=== PATIENT | female | born 1955 | race Caucasian/White ===

== ENCOUNTER 2017-07-19 09:18 | Outpatient (CLI) | payer MEDICARE, OTHER ==
[~2017-07-19 09:18] MED LIST: ALBU8.5H8 IH; AMIO200T42 PO; APIX5TAB3 PO; CARV3.12 PO; FERR325T28 PO; FLUO20CA39 PO; HYDR-569 PO; LEVO100T46 PO; PANT40TA4 PO; PRAV40TA PO; SPIR25TA PO; TRAZ-146 PO
[2017-07-19] MEDS ORDERED: METR500T PO (14:09)
[2017-07-19] MEDS ORDERED: CIPR-259 PO (14:09)
[2017-07-19] MEDS ORDERED: DOCU-28 PO (14:12)
== END 2017-07-19 23:59 | disposition home or self-care (01) ==
LOC: RAD 09:18
PROVIDERS: ATTEND Family Medicine
DX: Z48.815 Encounter for surgical aftercare following surgery on the digestive system (principal); I11.0 Hypertensive heart disease with heart failure; I50.9 Heart failure, unspecified; J44.9 Chronic obstructive pulmonary disease, unspecified; Z87.891 Personal history of nicotine dependence; Z85.3 Personal history of malignant neoplasm of breast; Z95.0 Presence of cardiac pacemaker; Z98.890 Other specified postprocedural states
CPT/HCPCS: 74022

== ENCOUNTER 2017-07-19 12:02 | Emergency (ER) | payer MEDICARE, OTHER ==
[~2017-07-19] VITALS: Ht 160 cm; Wt 65.7 kg
[2017-07-19 12:37] LABS: CLARITY,URINE SLIGHTLY CLOUDY (Clear); COLOR,URINE YELLOW (Yellow); GLUCOSE, URINE NEGATIVE (Neg); KETONES,URINE TRACE mg/dl (Neg); LEUKOCYTE ESTERASE ,URINE NEGATIVE (Neg); NITRITES, URINE NEGATIVE (Neg); OCCULT BLOOD,URINE NEGATIVE (Neg); PROTEIN,URINE NEGATIVE (Neg)
[2017-07-19 12:38] LABS: UA COLLECTION TYPE CLN CATCH MIDSTREAM
[2017-07-19 12:38] LABS: BASOPHILS % (AUTO) 0.3 % (0-1); EOSINOPHILS # (AUTO) 0.1 X10'3 (0-0.9); EOSINOPHILS % (AUTO) 0.8 % (0-6); HEMATOCRIT 41.2 % (35.0-45.0); HEMOGLOBIN 13.6 g/dl (12.0-16.0); LYMPHOCYTES # (AUTO) 2.6 X10'3 (1.1-4.8); LYMPHOCYTES % (AUTO) 22.3 % (21-51); MEAN CORPUSCULAR HEMOGLOBIN 29.1 PG (27.0-31.0); MEAN CORPUSCULAR HGB CONC 32.9 % (33.0-36.5); MEAN CORPUSCULAR VOLUME 88.6 FL (78-98); MEAN PLATELET VOLUME 7.9 FL (7.4-10.4); MONOCYTES # (AUTO) 0.7 X10'3 (0-0.9); MONOCYTES % (AUTO) 6.1 % (2-12); NEUTROPHILS # (AUTO) 8.3 X10'3 (1.8-7.7); NEUTROPHILS % (AUTO) 70.5 % (42-75); PLATELET COUNT 223 X10'3 (140-440); RED BLOOD COUNT 4.65 X10'6 (4.20-5.60); RED CELL DISTRIBUTION WIDTH 16.7 % (11.5-14.5); WHITE BLOOD COUNT 11.8 X10'3 (4.5-11.0)
[2017-07-19 12:43] LABS: BACTERIA,URINE 1+ /HPF (Neg); HYALINE CASTS 0-3 /LPF (NEGATIVE); MUCUS STRANDS MODERATE /LPF (Neg); SQUAMOUS EPITHELIAL CELL,UR FEW /LPF (FEW); WBC,URINE 0-4 /HPF (0-4)
[2017-07-19] MEDS ORDERED: morphine 4 MG/ML inj SYRINge IV PRN (12:55)
[2017-07-19] MEDS ORDERED: ondansetron/PF 4mg/2ml inj IV ONE (12:55)
[2017-07-19] MEDS ORDERED: normal saline 1000ML IV soln IVB ONE (12:55)
[2017-07-19] MEDS ORDERED: diphenhydrAMINE 50 mg/ml inj IV ONE (12:55)
[2017-07-19 12:58] LABS: ALANINE AMINOTRANSFERASE 17 U/L (12-78); ALBUMIN 3.4 G/DL (3.4-5.0); ALKALINE PHOSPHATASE 75 IU/L (46-116); ANION GAP 8 (8-16); ASPARTATE AMINO TRANSFERASE 17 U/L (10-37); BILIRUBIN,TOTAL 0.6 MG/DL (0.1-1.0); BLOOD UREA NITROGEN 20 MG/DL (7-18); BUN/CREATININE RATIO 23.3 (6.6-38.0); CALCIUM 8.7 MG/DL (8.5-10.1); CHLORIDE 103 MMOL/L (99-107); CREATININE 0.86 MG/DL (0.40-0.90); GLUCOSE 85 MG/DL (70-104); LIPASE 69 U/L (73-393); POTASSIUM 3.9 MMOL/L (3.5-5.1); SODIUM 137 MMOL/L (135-145); TOTAL CARBON DIOXIDE 26.5 MMOL/L (24-32); TOTAL PROTEIN 6.9 G/DL (6.4-8.2); eGFR 66 ML/MIN
[2017-07-19] MEDS ORDERED: CIPR-259 PO (14:09)
[2017-07-19] MEDS ORDERED: METR500T PO (14:09)
[2017-07-19] MEDS ORDERED: DOCU-28 PO (14:12)
[2017-07-19 15:23] VITALS: BP 115/51
== END 2017-07-19 15:30 | disposition home or self-care (01) ==
LOC: ER 12:02
DX: K52.9 Noninfective gastroenteritis and colitis, unspecified (principal); R10.84 Generalized abdominal pain; J45.909 Unspecified asthma, uncomplicated; I48.91 Unspecified atrial fibrillation; Z86.14 Personal history of Methicillin resistant Staphylococcus aureus infection; Z90.49 Acquired absence of other specified parts of digestive tract; Z98.890 Other specified postprocedural states; Z88.5 Allergy status to narcotic agent; Z88.0 Allergy status to penicillin; Z79.899 Other long term (current) drug therapy
CPT/HCPCS: 36415; 74176; 80053; 81001; 83690; 85025; 96361; 96374; 96375; 99285; J1200; J2270; J2405; J7030

== ENCOUNTER 2017-07-24 14:04 | Emergency (ER) | payer MEDICARE, OTHER ==
[~2017-07-24] VITALS: Ht 558.9 cm; Wt 59.0 kg
[~2017-07-24 14:04] MED LIST changes: +CIPR-259 PO; +DOCU-28 PO; +METR500T PO
[2017-07-24] MEDS ORDERED: verapamil 2.5 mg/ml inj IV ONE (14:20)
[2017-07-24] MEDS ORDERED: ondansetron/PF 4mg/2ml inj IV ONE ×2 (14:30→15:35)
[2017-07-24 14:34] LABS: BASOPHILS % (AUTO) 0.2 % (0-1); EOSINOPHILS # (AUTO) 0.2 X10'3 (0-0.9); EOSINOPHILS % (AUTO) 2.1 % (0-6); HEMATOCRIT 41.4 % (35.0-45.0); HEMOGLOBIN 13.8 g/dl (12.0-16.0); LYMPHOCYTES # (AUTO) 2.7 X10'3 (1.1-4.8); LYMPHOCYTES % (AUTO) 23.5 % (21-51); MEAN CORPUSCULAR HEMOGLOBIN 29.5 PG (27.0-31.0); MEAN CORPUSCULAR HGB CONC 33.2 % (33.0-36.5); MEAN PLATELET VOLUME 7.5 FL (7.4-10.4); MONOCYTES # (AUTO) 0.8 X10'3 (0-0.9); MONOCYTES % (AUTO) 7.3 % (2-12); NEUTROPHILS # (AUTO) 7.7 X10'3 (1.8-7.7); NEUTROPHILS % (AUTO) 66.9 % (42-75); PLATELET COUNT 240 X10'3 (140-440); RED BLOOD COUNT 4.66 X10'6 (4.20-5.60); RED CELL DISTRIBUTION WIDTH 16.2 % (11.5-14.5); WHITE BLOOD COUNT 11.4 X10'3 (4.5-11.0)
[2017-07-24 14:45] LABS: INR 1.2 INR; PARTIAL THROMBOPLASTIN TIME 32 SECONDS (22-32); PROTHROMBIN TIME 12.6 SECONDS (9.0-12.0)
[2017-07-24 14:49] LABS: ALANINE AMINOTRANSFERASE 19 U/L (12-78); ALBUMIN 3.7 G/DL (3.4-5.0); ALBUMIN/GLOBULIN RATIO 1.2 (1.1-1.5); ALKALINE PHOSPHATASE 69 IU/L (46-116); ANION GAP 11 (8-16); ASPARTATE AMINO TRANSFERASE 17 U/L (10-37); BILIRUBIN,TOTAL 0.5 MG/DL (0.1-1.0); BLOOD UREA NITROGEN 15 MG/DL (7-18); CALCIUM 9.4 MG/DL (8.5-10.1); CHLORIDE 102 MMOL/L (99-107); CREATININE 0.94 MG/DL (0.40-0.90); GLUCOSE 108 MG/DL (70-104); POTASSIUM 4.4 MMOL/L (3.5-5.1); SODIUM 138 MMOL/L (135-145); TOTAL CARBON DIOXIDE 24.7 MMOL/L (24-32); TOTAL PROTEIN 6.9 G/DL (6.4-8.2); eGFR 60 ML/MIN
[2017-07-24] MEDS ORDERED: morphine 4 MG/ML inj SYRINge IV ONE (15:30)
[2017-07-24 15:51] LABS: LIPASE 100 U/L (73-393)
[2017-07-24 16:00] LABS: CLARITY,URINE CLEAR (Clear); COLOR,URINE AMBER (Yellow); GLUCOSE, URINE NEGATIVE (Neg); KETONES,URINE TRACE mg/dl (Neg); LEUKOCYTE ESTERASE ,URINE NEGATIVE (Neg); NITRITES, URINE NEGATIVE (Neg); OCCULT BLOOD,URINE NEGATIVE (Neg); PROTEIN,URINE NEGATIVE (Neg); UROBILINOGEN,URINE 0.2 E.U/dL (0.2-1.0)
[2017-07-24 16:01] LABS: UA COLLECTION TYPE CLN CATCH MIDSTREAM
[2017-07-24] MEDS ORDERED: ONDA4TAB9 SL (16:47)
[2017-07-24 17:04] VITALS: BP 105/68
== END 2017-07-24 17:22 | disposition home or self-care (01) ==
LOC: ER 14:05
DX: R00.0 Tachycardia, unspecified (principal); E86.0 Dehydration; R10.84 Generalized abdominal pain; I48.91 Unspecified atrial fibrillation; J45.909 Unspecified asthma, uncomplicated; Z90.49 Acquired absence of other specified parts of digestive tract; Z95.0 Presence of cardiac pacemaker; Z88.0 Allergy status to penicillin; Z88.5 Allergy status to narcotic agent; Z85.3 Personal history of malignant neoplasm of breast
CPT/HCPCS: 36415; 71045; 80053; 81003; 83690; 83880; 84484; 85025; 85610; 85730; 93005; 96374; 96375; 96376; 99285; J2270; J2405

== ENCOUNTER 2017-08-02 01:35 | Emergency (ER) | payer MEDICARE, OTHER ==
[~2017-08-02] VITALS: Ht 160 cm; Wt 68.2 kg
[~2017-08-02 01:35] MED LIST changes: -CIPR-259 PO; -METR500T PO
[2017-08-02] MEDS ORDERED: acetaminophen 325mg tablet PO ONE (02:00)
[2017-08-02] MEDS ORDERED: LORazepam 1 MG tablet PO ONE (02:05)
[2017-08-02 03:35] LABS: CLARITY,URINE CLEAR (Clear); COLOR,URINE YELLOW (Yellow); GLUCOSE, URINE NEGATIVE (Neg); KETONES,URINE NEGATIVE (Neg); LEUKOCYTE ESTERASE ,URINE NEGATIVE (Neg); NITRITES, URINE NEGATIVE (Neg); OCCULT BLOOD,URINE NEGATIVE (Neg); PH,URINE 8.5 (4.8-8.0); PROTEIN,URINE NEGATIVE (Neg); UROBILINOGEN,URINE 0.2 E.U/dL (0.2-1.0)
[2017-08-02 03:42] LABS: UA COLLECTION TYPE CLN CATCH MIDSTREAM
[2017-08-02 03:43] LABS: ALANINE AMINOTRANSFERASE 22 U/L (12-78); ALBUMIN 3.5 G/DL (3.4-5.0); ALBUMIN/GLOBULIN RATIO 1.2 (1.1-1.5); ALKALINE PHOSPHATASE 59 IU/L (46-116); ANION GAP 13 (8-16); ASPARTATE AMINO TRANSFERASE 25 U/L (10-37); BILIRUBIN,TOTAL 0.8 MG/DL (0.1-1.0); BLOOD UREA NITROGEN 12 MG/DL (7-18); BUN/CREATININE RATIO 14.3 (6.6-38.0); CHLORIDE 106 MMOL/L (99-107); CREATININE 0.84 MG/DL (0.40-0.90); GLUCOSE 93 MG/DL (70-104); SODIUM 143 MMOL/L (135-145); TOTAL CARBON DIOXIDE 24.1 MMOL/L (24-32); TOTAL PROTEIN 6.5 G/DL (6.4-8.2); eGFR 68 ML/MIN
[2017-08-02 03:44] LABS: POTASSIUM 3.5 MMOL/L (3.5-5.1)
[2017-08-02 03:48] LABS: HEMATOCRIT 35.1 % (35.0-45.0); HEMOGLOBIN 11.8 g/dl (12.0-16.0); MEAN CORPUSCULAR HEMOGLOBIN 29.9 PG (27.0-31.0); MEAN CORPUSCULAR HGB CONC 33.5 % (33.0-36.5); MEAN CORPUSCULAR VOLUME 89.2 FL (78-98); MEAN PLATELET VOLUME 8.1 FL (7.4-10.4); PLATELET COUNT 201 X10'3 (140-440); RED BLOOD COUNT 3.94 X10'6 (4.20-5.60); RED CELL DISTRIBUTION WIDTH 15.6 % (11.5-14.5); WHITE BLOOD COUNT 11.9 X10'3 (4.5-11.0)
[2017-08-02 04:16] LABS: URINE AMPHETAMINE SCREEN NEGATIVE (Neg); URINE BARBITUATE SCREEN NEGATIVE (Neg); URINE BENZODIAZEPINES SCREEN POSITIVE (Neg); URINE CANNABINOID SCREEN NEGATIVE (Neg); URINE COCAINE SCREEN NEGATIVE (Neg); URINE METHADONE SCREEN NEGATIVE (Neg); URINE OPIATE SCREEN NEGATIVE (Neg); URINE PHENCYCLIDINE SCREEN NEGATIVE (Neg)
[2017-08-02 04:48] LABS: ANISOCYTOSIS 1+; PLATELET ESTIMATE NORMAL; POIKILOCYTOSIS FEW; TOTAL CELLS COUNTED 100
[2017-08-02] MEDS ORDERED: LORA1TAB PO (05:06)
[2017-08-02 05:19] VITALS: BP 111/62
== END 2017-08-02 05:21 | disposition home or self-care (01) ==
LOC: ER 01:36
DX: F41.9 Anxiety disorder, unspecified (principal); R07.89 Other chest pain; R07.81 Pleurodynia; I48.91 Unspecified atrial fibrillation; J45.909 Unspecified asthma, uncomplicated; Z86.14 Personal history of Methicillin resistant Staphylococcus aureus infection; Z90.49 Acquired absence of other specified parts of digestive tract; Z95.0 Presence of cardiac pacemaker; Z98.890 Other specified postprocedural states; Z87.891 Personal history of nicotine dependence; Z88.0 Allergy status to penicillin; Z88.5 Allergy status to narcotic agent; Z79.899 Other long term (current) drug therapy
CPT/HCPCS: 36415; 71045; 80053; 80305; 81003; 83880; 84484; 85025; 93005; 99285

== ENCOUNTER 2017-08-06 11:51 | Emergency (ER) | payer MEDICARE, OTHER ==
[~2017-08-06] VITALS: Ht 160 cm; Wt 67.8 kg
[~2017-08-06 11:51] MED LIST changes: +LORA1TAB PO
[2017-08-06 12:33] LABS: BASOPHILS % (AUTO) 0.4 % (0-1); EOSINOPHILS # (AUTO) 0.1 X10'3 (0-0.9); EOSINOPHILS % (AUTO) 1.6 % (0-6); HEMATOCRIT 32.6 % (35.0-45.0); HEMOGLOBIN 10.8 g/dl (12.0-16.0); LYMPHOCYTES # (AUTO) 1.8 X10'3 (1.1-4.8); LYMPHOCYTES % (AUTO) 21.4 % (21-51); MEAN CORPUSCULAR HEMOGLOBIN 29.5 PG (27.0-31.0); MEAN CORPUSCULAR VOLUME 89.3 FL (78-98); MEAN PLATELET VOLUME 7.7 FL (7.4-10.4); MONOCYTES # (AUTO) 0.6 X10'3 (0-0.9); MONOCYTES % (AUTO) 6.9 % (2-12); NEUTROPHILS # (AUTO) 5.8 X10'3 (1.8-7.7); NEUTROPHILS % (AUTO) 69.7 % (42-75); PLATELET COUNT 219 X10'3 (140-440); RED BLOOD COUNT 3.65 X10'6 (4.20-5.60); RED CELL DISTRIBUTION WIDTH 16.5 % (11.5-14.5); WHITE BLOOD COUNT 8.3 X10'3 (4.5-11.0)
[2017-08-06 12:43] LABS: PARTIAL THROMBOPLASTIN TIME 25 SECONDS (22-32); PROTHROMBIN TIME 10.3 SECONDS (9.0-12.0)
[2017-08-06 12:45] VITALS: BP 116/53
[2017-08-06 12:50] LABS: ALANINE AMINOTRANSFERASE 15 U/L (12-78); ALBUMIN 3.3 G/DL (3.4-5.0); ALBUMIN/GLOBULIN RATIO 1.1 (1.1-1.5); ALKALINE PHOSPHATASE 59 IU/L (46-116); ANION GAP 11 (8-16); ASPARTATE AMINO TRANSFERASE 12 U/L (10-37); BILIRUBIN,TOTAL 0.6 MG/DL (0.1-1.0); BLOOD UREA NITROGEN 11 MG/DL (7-18); BUN/CREATININE RATIO 14.1 (6.6-38.0); CALCIUM 9.3 MG/DL (8.5-10.1); CHLORIDE 108 MMOL/L (99-107); CREATININE 0.78 MG/DL (0.40-0.90); GLUCOSE 88 MG/DL (70-104); SODIUM 144 MMOL/L (135-145); TOTAL CARBON DIOXIDE 25.3 MMOL/L (24-32); TOTAL PROTEIN 6.4 G/DL (6.4-8.2); eGFR 74 ML/MIN
[2017-08-06] MEDS ORDERED: busPIRone 5mg tablet PO ONE (12:55)
[2017-08-06] MEDS ORDERED: BUSP10TA11 PO (13:00)
== END 2017-08-06 13:50 | disposition home or self-care (01) ==
LOC: ER 11:51
DX: F43.22 Adjustment disorder with anxiety (principal); D63.8 Anemia in other chronic diseases classified elsewhere; J45.909 Unspecified asthma, uncomplicated; I48.91 Unspecified atrial fibrillation; I25.9 Chronic ischemic heart disease, unspecified; G30.9 Alzheimer's disease, unspecified; Z86.73 Personal history of transient ischemic attack (TIA), and cerebral infarction without residual deficits; Z90.49 Acquired absence of other specified parts of digestive tract; Z95.0 Presence of cardiac pacemaker; Z79.899 Other long term (current) drug therapy; Z88.0 Allergy status to penicillin; Z88.5 Allergy status to narcotic agent; Z91.011 Allergy to milk products
CPT/HCPCS: 36415; 71045; 80053; 84484; 85025; 85610; 85730; 93005; 99285

== ENCOUNTER 2017-08-08 07:25 | Outpatient (CLI) | payer MEDICARE, OTHER ==
[~2017-08-08] VITALS: Ht 162.6 cm; Wt 68.0 kg
[~2017-08-08 07:25] MED LIST changes: +BUSP10TA11 PO
[2017-08-08] MEDS ORDERED: albuterol 2.5 MG/3 ML nebule NEB PRN (08:05)
== END 2017-08-08 23:59 | disposition home or self-care (01) ==
LOC: RT 07:25
PROVIDERS: ATTEND Internal Medicine Cardiovascular Disease
DX: Z51.81 Encounter for therapeutic drug level monitoring (principal); R09.02 Hypoxemia; R06.02 Shortness of breath; R06.09 Other forms of dyspnea; F17.200 Nicotine dependence, unspecified, uncomplicated; Z79.899 Other long term (current) drug therapy; D64.9 Anemia, unspecified
CPT/HCPCS: 94060; 94640; 94727; 94729; 94760

== ENCOUNTER 2017-08-15 05:44 | Day surgery (SDC) | payer MEDICARE ==
[2017-08-14 09:36] LABS: BASOPHILS % (AUTO) 0.3 % (0-1); EOSINOPHILS # (AUTO) 0.1 X10'3 (0-0.9); HEMATOCRIT 33.8 % (35.0-45.0); HEMOGLOBIN 11.1 g/dl (12.0-16.0); LYMPHOCYTES # (AUTO) 1.4 X10'3 (1.1-4.8); LYMPHOCYTES % (AUTO) 18.7 % (21-51); MEAN CORPUSCULAR HEMOGLOBIN 29.8 PG (27.0-31.0); MEAN CORPUSCULAR VOLUME 90.3 FL (78-98); MEAN PLATELET VOLUME 7.9 FL (7.4-10.4); MONOCYTES # (AUTO) 0.5 X10'3 (0-0.9); MONOCYTES % (AUTO) 7.2 % (2-12); NEUTROPHILS # (AUTO) 5.3 X10'3 (1.8-7.7); NEUTROPHILS % (AUTO) 72.8 % (42-75); PLATELET COUNT 216 X10'3 (140-440); RED BLOOD COUNT 3.74 X10'6 (4.20-5.60); RED CELL DISTRIBUTION WIDTH 16.6 % (11.5-14.5); WHITE BLOOD COUNT 7.3 X10'3 (4.5-11.0)
[2017-08-14 09:46] LABS: ALBUMIN 3.2 G/DL (3.4-5.0); ANION GAP 12 (8-16); BLOOD UREA NITROGEN 21 MG/DL (7-18); BUN/CREATININE RATIO 25.9 (6.6-38.0); CHLORIDE 108 MMOL/L (99-107); CREATININE 0.81 MG/DL (0.40-0.90); GLUCOSE 95 MG/DL (70-104); POTASSIUM 3.8 MMOL/L (3.5-5.1); SODIUM 142 MMOL/L (135-145); eGFR 71 ML/MIN
[2017-08-14 09:47] LABS: INR 1.3 INR; PARTIAL THROMBOPLASTIN TIME 31 SECONDS (22-32); PROTHROMBIN TIME 12.9 SECONDS (9.0-12.0)
[~2017-08-15] VITALS: Ht 160 cm; Wt 66.0 kg
[2017-08-15] VITALS (11 sets, daily range): BP systolic 99–118; BP diastolic 58–94
[2017-08-15] MEDS ORDERED: LORazepam 0.5 MG tablet PO PRN (06:15)
[2017-08-15] MEDS ORDERED: diphenhydrAMINE 25mg capsule PO PRN (06:15)
[2017-08-15] MEDS ORDERED: RIVA20TA PO (06:47)
[2017-08-15] MEDS ORDERED: CARV3.122 PO (06:47)
[2017-08-15] MEDS ORDERED: PANT-47 PO (06:47)
[2017-08-15] MEDS ORDERED: HYDR-3965 PO (06:47)
[2017-08-15] MEDS ORDERED: FERR325T28 PO (06:47)
[2017-08-15] MEDS ORDERED: BUSP10TA11 PO (06:47)
[2017-08-15] MEDS ORDERED: normal saline 1000ml 1,000 ML IV SCH (07:00)
[2017-08-15] MEDS ORDERED: fentaNYL/PF 50MCG/1 ML 2ML syringe ONE (07:22)
[2017-08-15] MEDS ORDERED: midazolam 2 mg/2 ml injection ONE (07:22)
[2017-08-15] MEDS ORDERED: LIDOcaine 1% w/EPI 1:100,000 30ml vial (MDV) ONE (07:23)
[2017-08-15] MEDS ORDERED: heparin 1,000unit/ml 10ml vial 10 ML ONE (07:23)
[2017-08-15] MEDS ORDERED: iohexol 350 MG/ML 50ML vial IV ONE (07:24)
[2017-08-15] MEDS ORDERED: nitroGLYCERIN-Tridil 50MG/D5W 250 ML IV ONE (07:24)
[2017-08-15] MEDS ORDERED: iohexol 350MG/ML 100ml bottle IV ONE (07:24)
[2017-08-15 09:20] LABS: ISTAT HGB ART 10.9 g/dl (12.0-16.0); ISTAT Hct ART 32 %PCV (35-48); ISTAT O2 SATURATION ARTERIAL 95 % (95-98); ISTAT SOURCE ART
[2017-08-15 09:20] LABS: ISTAT Hct MIX 31 %PCV (35-48); ISTAT O2 SATURATION MIX VENOUS 53 % (60-80); ISTAT SOURCE MIX
[2017-08-15] MEDS ORDERED: HYDROcodone/acetaminophen 5mg/325mg tablet PO ONE (12:50)
== END 2017-08-15 15:00 | disposition home or self-care (01) ==
LOC: SSTAY O 05:44
PROVIDERS: ATTEND Internal Medicine Cardiovascular Disease
DX: I25.10 Atherosclerotic heart disease of native coronary artery without angina pectoris (principal); E78.5 Hyperlipidemia, unspecified; I42.8 Other cardiomyopathies; I48.0 Paroxysmal atrial fibrillation; I11.0 Hypertensive heart disease with heart failure; I50.9 Heart failure, unspecified; K21.9 Gastro-esophageal reflux disease without esophagitis; B15.9 Hepatitis A without hepatic coma; E03.9 Hypothyroidism, unspecified; Z79.891 Long term (current) use of opiate analgesic; Z90.89 Acquired absence of other organs; Z98.51 Tubal ligation status; Z90.710 Acquired absence of both cervix and uterus; Z85.3 Personal history of malignant neoplasm of breast; Z95.810 Presence of automatic (implantable) cardiac defibrillator; Z90.49 Acquired absence of other specified parts of digestive tract; J44.9 Chronic obstructive pulmonary disease, unspecified; Z88.5 Allergy status to narcotic agent; Z88.0 Allergy status to penicillin; Z91.011 Allergy to milk products; Z72.89 Other problems related to lifestyle; Z86.14 Personal history of Methicillin resistant Staphylococcus aureus infection; Z90.11 Acquired absence of right breast and nipple; Z86.73 Personal history of transient ischemic attack (TIA), and cerebral infarction without residual deficits; Z88.8 Allergy status to other drugs, medicaments and biological substances; Z98.890 Other specified postprocedural states; Z79.899 Other long term (current) drug therapy
CPT/HCPCS: 36415; 80048; 82803; 85014; 85025; 85610; 85730; 93005; 93460; 99152; 99153; A6257; C1760; C1769; C1894; J1644; J2250; J3010; J3490; J7030; Q0163; Q9967; A4620

== ENCOUNTER 2017-09-16 08:09 | Inpatient (IN) | payer MEDICARE, OTHER ==
[~2017-09-16] VITALS: Ht 160 cm; Wt 65.0 kg
[~2017-09-16 08:09] MED LIST changes: -AMIO200T42 PO; -APIX5TAB3 PO; -CARV3.12 PO; +CARV3.122 PO; -DOCU-28 PO; +HYDR-3965 PO; -HYDR-569 PO; +LACT10SO PO; -LORA1TAB PO; +ONDA4TAB12 PO; +PANT-47 PO; -PANT40TA4 PO; +RIVA20TA PO
[2017-09-16] MEDS ORDERED: morphine 4 MG/ML inj SYRINge IV ONE ×2 (08:45→13:55)
[2017-09-16] MEDS ORDERED: diphenhydrAMINE 50 mg/ml inj IV ONE (08:45)
[2017-09-16 09:33] LABS: BASOPHILS % (AUTO) 0 % (0-1); EOSINOPHILS % (AUTO) 0.2 % (0-6); HEMATOCRIT 35.1 % (35.0-45.0); HEMOGLOBIN 11.9 g/dl (12.0-16.0); LYMPHOCYTES # (AUTO) 0.9 X10'3 (1.1-4.8); LYMPHOCYTES % (AUTO) 7.7 % (21-51); MEAN CORPUSCULAR HEMOGLOBIN 31.2 PG (27.0-31.0); MEAN CORPUSCULAR HGB CONC 33.8 % (33.0-36.5); MEAN CORPUSCULAR VOLUME 92.2 FL (78-98); MEAN PLATELET VOLUME 8.4 FL (7.4-10.4); MONOCYTES # (AUTO) 0.4 X10'3 (0-0.9); MONOCYTES % (AUTO) 3.7 % (2-12); NEUTROPHILS # (AUTO) 9.7 X10'3 (1.8-7.7); NEUTROPHILS % (AUTO) 88.4 % (42-75); PLATELET COUNT 158 X10'3 (140-440); RED BLOOD COUNT 3.81 X10'6 (4.20-5.60); RED CELL DISTRIBUTION WIDTH 15.7 % (11.5-14.5)
[2017-09-16 09:44] LABS: INR 1.2 INR; PARTIAL THROMBOPLASTIN TIME 32 SECONDS (22-32); PROTHROMBIN TIME 12.7 SECONDS (9.0-12.0)
[2017-09-16] MEDS ORDERED: normal saline 1000ML IV soln IVB ONE (09:45)
[2017-09-16] MEDS ORDERED: ondansetron 4mg rapidly disintigrating tab PO ONE (09:50)
[2017-09-16] MEDS ORDERED: ondansetron/PF 4mg/2ml inj IV ONE (09:50)
[2017-09-16] MEDS ORDERED: ipratropium/albuterol 3ml nebule NEB ONE (09:50)
[2017-09-16] MEDS ORDERED: CefTRIAXone 2gm/D5W 50ml 50 ML IV ONE (10:55)
[2017-09-16 11:42] LABS: CLARITY,URINE CLEAR (Clear); COLOR,URINE STRAW (Yellow); GLUCOSE, URINE NEGATIVE (Neg); KETONES,URINE NEGATIVE (Neg); LEUKOCYTE ESTERASE ,URINE NEGATIVE (Neg); NITRITES, URINE NEGATIVE (Neg); OCCULT BLOOD,URINE TRACE-INTACT (Neg); PROTEIN,URINE NEGATIVE (Neg); UROBILINOGEN,URINE 0.2 E.U/dL (0.2-1.0)
[2017-09-16 11:48] LABS: UA COLLECTION TYPE CLN CATCH MIDSTREAM
[2017-09-16 11:50] LABS: BACTERIA,URINE NONE SEEN /HPF (Neg); MUCUS STRANDS NONE SEEN /LPF (Neg); RBC,URINE 0-2 /HPF (0-2); SQUAMOUS EPITHELIAL CELL,UR NONE SEEN /LPF (FEW); WBC,URINE NONE SEEN /HPF (0-4)
[2017-09-16] MEDS ORDERED: FURO-149 PO (12:03)
[2017-09-16] MEDS ORDERED: SPIR50TA5 PO (12:03)
[2017-09-16] MEDS ORDERED: morphine 2 MG/ML inj. syringe IV ONE (12:35)
[2017-09-16 13:00] LABS: ALANINE AMINOTRANSFERASE 16 U/L (12-78); ALBUMIN 2.6 G/DL (3.4-5.0); ALBUMIN/GLOBULIN RATIO 0.9 (1.1-1.5); ALKALINE PHOSPHATASE 41 IU/L (46-116); ANION GAP 7 (8-16); ASPARTATE AMINO TRANSFERASE 11 U/L (10-37); BILIRUBIN,TOTAL 0.4 MG/DL (0.1-1.0); BLOOD UREA NITROGEN 11 MG/DL (7-18); BUN/CREATININE RATIO 11.8 (6.6-38.0); CALCIUM 7.8 MG/DL (8.5-10.1); CHLORIDE 107 MMOL/L (99-107); CREATININE 0.93 MG/DL (0.40-0.90); GLUCOSE 104 MG/DL (70-104); POTASSIUM 3.3 MMOL/L (3.5-5.1); SODIUM 139 MMOL/L (135-145); TOTAL CARBON DIOXIDE 25.1 MMOL/L (24-32); TOTAL PROTEIN 5.4 G/DL (6.4-8.2); eGFR 61 ML/MIN
[2017-09-16 13:07] LABS: LIPASE < 50 U/L (73-393); MAGNESIUM 1.5 MG/DL (1.5-2.4)
[2017-09-16] MEDS ORDERED: potassium Cl 20 mEq SR tablet PO PRN (14:40)
[2017-09-16] MEDS ORDERED: mag hydrox/Alum hydrox/simeth 30ml oral suspension PO PRN (14:40)
[2017-09-16] MEDS ORDERED: acetaminophen 325mg tablet PO PRN (14:40)
[2017-09-16] MEDS ORDERED: potassium Cl 40MEQ/NS 500ml 500 ML IV PRN ×2 (14:40)
[2017-09-16] MEDS ORDERED: magnesium Cl slow-release 64mg tablet PO PRN (14:40)
[2017-09-16] MEDS ORDERED: magnesium hydroxide 30ml (MOM) UD suspension PO PRN (14:40)
[2017-09-16] MEDS ORDERED: magnesium 4gm in 100ml NS 100 ML IV PRN (14:40)
[2017-09-16] MEDS ORDERED: ondansetron/PF 4mg/2ml inj IV PRN (14:40)
[2017-09-16] MEDS ORDERED: SACU1TAB PO (16:44)
[2017-09-16] MEDS: normal saline 1000ml 1,000 ML IV SCH (16:46)
[2017-09-16] MEDS: levoFLOXACIN-Levaquin 500mg/D5 100 ML IV SCH (16:46)
[2017-09-16 17:02] VITALS: BP 98/54
[2017-09-16] MEDS ORDERED: MESSAGE TO NURSING PO ONE (17:05)
[2017-09-16] MEDS: HYDROmorphone 1 mg/ml syringe IV PRN ×2 (18:58→23:23)
[2017-09-16 20:00] VITALS: BP 96/59
[2017-09-16] MEDS: carVEDilol 3.125mg tablet PO SCH (20:00)
[2017-09-16] MEDS: busPIRone 5mg tablet PO SCH (20:00)
[2017-09-16] MEDS: spironolactone 50 MG tablet PO SCH (20:00)
[2017-09-16] MEDS: diphenhydrAMINE 50 mg/ml inj IV PRN (20:39)
[2017-09-16] MEDS: enoxaparin 60mg/0.6ml syringe SUBCUT SCH (20:59)
[2017-09-16] MEDS: pravastatin 40mg tablet PO SCH (21:00)
[2017-09-16] MEDS: traZODone 50mg tablet PO SCH (22:10)
[2017-09-16] MEDS: diatr meglu/diatrizoate 30ml oral sol.-(3 dose) bottle PO SCH (22:11)
[2017-09-17] VITALS: BP 97/61
[2017-09-17] MEDS: HYDROmorphone 1 mg/ml syringe IV PRN ×5 (03:44→21:53)
[2017-09-17] MEDS: diphenhydrAMINE 50 mg/ml inj IV PRN ×3 (04:36→19:53)
[2017-09-17 05:13] LABS: BASOPHILS % (AUTO) 0.2 % (0-1); EOSINOPHILS # (AUTO) 0.2 X10'3 (0-0.9); HEMATOCRIT 30.6 % (35.0-45.0); LYMPHOCYTES # (AUTO) 1.6 X10'3 (1.1-4.8); MEAN CORPUSCULAR HEMOGLOBIN 30.6 PG (27.0-31.0); MEAN CORPUSCULAR HGB CONC 32.8 % (33.0-36.5); MEAN CORPUSCULAR VOLUME 93.2 FL (78-98); MEAN PLATELET VOLUME 8.4 FL (7.4-10.4); MONOCYTES # (AUTO) 0.5 X10'3 (0-0.9); MONOCYTES % (AUTO) 5.3 % (2-12); NEUTROPHILS # (AUTO) 7.2 X10'3 (1.8-7.7); NEUTROPHILS % (AUTO) 75.5 % (42-75); PLATELET COUNT 122 X10'3 (140-440); RED BLOOD COUNT 3.28 X10'6 (4.20-5.60); RED CELL DISTRIBUTION WIDTH 15.5 % (11.5-14.5); WHITE BLOOD COUNT 9.6 X10'3 (4.5-11.0)
[2017-09-17 05:40] LABS: ALANINE AMINOTRANSFERASE 17 U/L (12-78); ALBUMIN 2.4 G/DL (3.4-5.0); ALBUMIN/GLOBULIN RATIO 0.9 (1.1-1.5); ALKALINE PHOSPHATASE 43 IU/L (46-116); ANION GAP 6 (8-16); ASPARTATE AMINO TRANSFERASE 11 U/L (10-37); BILIRUBIN,TOTAL 0.6 MG/DL (0.1-1.0); BLOOD UREA NITROGEN 7 MG/DL (7-18); BUN/CREATININE RATIO 8.5 (6.6-38.0); CALCIUM 7.9 MG/DL (8.5-10.1); CHLORIDE 106 MMOL/L (99-107); CREATININE 0.82 MG/DL (0.40-0.90); GLUCOSE 71 MG/DL (70-104); MAGNESIUM 1.4 MG/DL (1.5-2.4); POTASSIUM 3.7 MMOL/L (3.5-5.1); SODIUM 136 MMOL/L (135-145); TOTAL CARBON DIOXIDE 24.5 MMOL/L (24-32); TOTAL PROTEIN 5.2 G/DL (6.4-8.2); eGFR 70 ML/MIN
[2017-09-17] MEDS: levoTHYROXINE 100mcg tablet PO SCH (07:18)
[2017-09-17] MEDS: K and/or MAG REPLACEMENT MC SCH (07:18)
[2017-09-17] MEDS: FLUoxetine 20mg capsule PO SCH (07:18)
[2017-09-17 07:37] VITALS: BP 109/61
[2017-09-17] MEDS: spironolactone 50 MG tablet PO SCH ×2 (07:42→19:51)
[2017-09-17] MEDS: pantoprazole 40mg Tablet.DR PO SCH (07:42)
[2017-09-17] MEDS: busPIRone 5mg tablet PO SCH ×2 (07:42→19:50)
[2017-09-17] MEDS: carVEDilol 3.125mg tablet PO SCH ×2 (07:42→19:51)
[2017-09-17] MEDS: enoxaparin 60mg/0.6ml syringe SUBCUT SCH ×2 (07:43→19:53)
[2017-09-17] MEDS: levoFLOXACIN-Levaquin 500mg/D5 100 ML IV SCH (07:51)
[2017-09-17] MEDS: diatr meglu/diatrizoate 30ml oral sol.-(3 dose) bottle PO SCH ×2 (07:51→09:06)
[2017-09-17] MEDS: normal saline 1000ml 1,000 ML IV SCH (09:19)
[2017-09-17] MEDS ORDERED: LACT10SO PO (10:01)
[2017-09-17] MEDS ORDERED: DIAZ10TA4 PO (10:02)
[2017-09-17 12:07] VITALS: BP 107/58
[2017-09-17] MEDS: magnesium 1gm/100ml D5W IVPB 100 ML IV PRN ×2 (12:13→15:12)
[2017-09-17] MEDS ORDERED: PEG 3350/Na sulf,bicarb,Cl/KCl oral sol 4 liter bottle PO ONE (14:40)
[2017-09-17] MEDS: lactobacillus rhamnosus 10,000 MMU CELLS/CAPSULE PO SCH (19:52)
[2017-09-17 20:00] VITALS: BP 115/66
[2017-09-17] MEDS: traZODone 50mg tablet PO SCH (21:39)
[2017-09-17] MEDS: pravastatin 40mg tablet PO SCH (21:39)
[2017-09-18] VITALS: BP 92/60
[2017-09-18] MEDS: normal saline 1000ml 1,000 ML IV SCH ×2 (02:05→20:56)
[2017-09-18 05:16] LABS: BASOPHILS % (AUTO) 0.2 % (0-1); EOSINOPHILS # (AUTO) 0.1 X10'3 (0-0.9); EOSINOPHILS % (AUTO) 2.3 % (0-6); HEMATOCRIT 29.1 % (35.0-45.0); HEMOGLOBIN 9.7 g/dl (12.0-16.0); LYMPHOCYTES # (AUTO) 1.2 X10'3 (1.1-4.8); LYMPHOCYTES % (AUTO) 20.2 % (21-51); MEAN CORPUSCULAR HEMOGLOBIN 30.6 PG (27.0-31.0); MEAN CORPUSCULAR HGB CONC 33.3 % (33.0-36.5); MEAN CORPUSCULAR VOLUME 91.9 FL (78-98); MEAN PLATELET VOLUME 8.2 FL (7.4-10.4); MONOCYTES # (AUTO) 0.3 X10'3 (0-0.9); MONOCYTES % (AUTO) 5.7 % (2-12); NEUTROPHILS # (AUTO) 4.1 X10'3 (1.8-7.7); NEUTROPHILS % (AUTO) 71.6 % (42-75); PLATELET COUNT 123 X10'3 (140-440); RED BLOOD COUNT 3.16 X10'6 (4.20-5.60); RED CELL DISTRIBUTION WIDTH 15.4 % (11.5-14.5); WHITE BLOOD COUNT 5.7 X10'3 (4.5-11.0)
[2017-09-18 05:44] LABS: ALANINE AMINOTRANSFERASE 12 U/L (12-78); ALBUMIN 2.4 G/DL (3.4-5.0); ALBUMIN/GLOBULIN RATIO 0.9 (1.1-1.5); ALKALINE PHOSPHATASE 49 IU/L (46-116); ANION GAP 8 (8-16); ASPARTATE AMINO TRANSFERASE 10 U/L (10-37); BILIRUBIN,TOTAL 0.4 MG/DL (0.1-1.0); BLOOD UREA NITROGEN 5 MG/DL (7-18); BUN/CREATININE RATIO 7.7 (6.6-38.0); CALCIUM 8.1 MG/DL (8.5-10.1); CHLORIDE 105 MMOL/L (99-107); CREATININE 0.65 MG/DL (0.40-0.90); GLUCOSE 71 MG/DL (70-104); MAGNESIUM 1.9 MG/DL (1.5-2.4); POTASSIUM 3.4 MMOL/L (3.5-5.1); SODIUM 141 MMOL/L (135-145); TOTAL CARBON DIOXIDE 28.5 MMOL/L (24-32); TOTAL PROTEIN 5.2 G/DL (6.4-8.2); eGFR > 90 ML/MIN
[2017-09-18 07:00] VITALS: BP 105/64
[2017-09-18] MEDS: albuterol 2.5 MG/3 ML nebule NEB PRN (07:22)
[2017-09-18] MEDS: levoTHYROXINE 100mcg tablet PO SCH (07:40)
[2017-09-18] MEDS: lactobacillus rhamnosus 10,000 MMU CELLS/CAPSULE PO SCH ×2 (07:40→20:57)
[2017-09-18] MEDS: levoFLOXACIN-Levaquin 500mg/D5 100 ML IV SCH (07:40)
[2017-09-18] MEDS: spironolactone 50 MG tablet PO SCH ×2 (07:40→20:57)
[2017-09-18] MEDS: FLUoxetine 20mg capsule PO SCH (07:40)
[2017-09-18] MEDS: pantoprazole 40mg Tablet.DR PO SCH (07:41)
[2017-09-18] MEDS: busPIRone 5mg tablet PO SCH ×2 (07:41→20:57)
[2017-09-18] MEDS: carVEDilol 3.125mg tablet PO SCH ×2 (07:41→20:57)
[2017-09-18] MEDS: K and/or MAG REPLACEMENT MC SCH (07:44)
[2017-09-18] MEDS: potassium Cl 20 mEq SR tablet PO PRN ×3 (07:48→17:25)
[2017-09-18] MEDS: HYDROmorphone 1 mg/ml syringe IV PRN ×4 (07:58→21:31)
[2017-09-18] MEDS: diphenhydrAMINE 50 mg/ml inj IV PRN ×2 (07:58→17:18)
[2017-09-18] MEDS: enoxaparin 60mg/0.6ml syringe SUBCUT SCH ×2 (08:02→21:02)
[2017-09-18 11:00] VITALS: BP 113/72
[2017-09-18] MEDS: LORazepam 0.5 MG tablet PO PRN (16:02)
[2017-09-18] MEDS: sacubitril/valsartan 24mg-26mg tablet PO SCH (19:14)
[2017-09-18 20:00] VITALS: BP 117/72
[2017-09-18] MEDS: traZODone 50mg tablet PO SCH (20:56)
[2017-09-18] MEDS: pravastatin 40mg tablet PO SCH (20:57)
[2017-09-19] VITALS: BP 97/59
[2017-09-19] MEDS: HYDROmorphone 1 mg/ml syringe IV PRN ×3 (02:30→12:21)
[2017-09-19] MEDS: diphenhydrAMINE 50 mg/ml inj IV PRN ×2 (02:33→08:12)
[2017-09-19 05:00] LABS: BASOPHILS % (AUTO) 0.4 % (0-1); EOSINOPHILS # (AUTO) 0.1 X10'3 (0-0.9); EOSINOPHILS % (AUTO) 2.1 % (0-6); HEMATOCRIT 27.3 % (35.0-45.0); HEMOGLOBIN 8.9 g/dl (12.0-16.0); LYMPHOCYTES # (AUTO) 1.1 X10'3 (1.1-4.8); LYMPHOCYTES % (AUTO) 26.3 % (21-51); MEAN CORPUSCULAR HEMOGLOBIN 30.5 PG (27.0-31.0); MEAN CORPUSCULAR HGB CONC 32.7 % (33.0-36.5); MEAN CORPUSCULAR VOLUME 93.2 FL (78-98); MEAN PLATELET VOLUME 7.9 FL (7.4-10.4); MONOCYTES # (AUTO) 0.3 X10'3 (0-0.9); MONOCYTES % (AUTO) 6.8 % (2-12); NEUTROPHILS # (AUTO) 2.7 X10'3 (1.8-7.7); NEUTROPHILS % (AUTO) 64.4 % (42-75); PLATELET COUNT 120 X10'3 (140-440); RED BLOOD COUNT 2.93 X10'6 (4.20-5.60); RED CELL DISTRIBUTION WIDTH 15.6 % (11.5-14.5); WHITE BLOOD COUNT 4.3 X10'3 (4.5-11.0)
[2017-09-19 05:06] LABS: ALANINE AMINOTRANSFERASE 11 U/L (12-78); ALBUMIN 2.3 G/DL (3.4-5.0); ALBUMIN/GLOBULIN RATIO 0.9 (1.1-1.5); ALKALINE PHOSPHATASE 39 IU/L (46-116); ANION GAP 7 (8-16); ASPARTATE AMINO TRANSFERASE 8 U/L (10-37); BILIRUBIN,TOTAL 0.3 MG/DL (0.1-1.0); BLOOD UREA NITROGEN 3 MG/DL (7-18); BUN/CREATININE RATIO 5.7 (6.6-38.0); CALCIUM 8.2 MG/DL (8.5-10.1); CHLORIDE 111 MMOL/L (99-107); CREATININE 0.53 MG/DL (0.40-0.90); GLUCOSE 95 MG/DL (70-104); MAGNESIUM 1.4 MG/DL (1.5-2.4); SODIUM 144 MMOL/L (135-145); TOTAL CARBON DIOXIDE 26.1 MMOL/L (24-32); TOTAL PROTEIN 4.9 G/DL (6.4-8.2); eGFR > 90 ML/MIN
[2017-09-19 07:59] VITALS: BP 107/67
[2017-09-19] MEDS: K and/or MAG REPLACEMENT MC SCH (08:00)
[2017-09-19] MEDS: lactobacillus rhamnosus 10,000 MMU CELLS/CAPSULE PO SCH (08:11)
[2017-09-19] MEDS: carVEDilol 3.125mg tablet PO SCH (08:11)
[2017-09-19] MEDS: busPIRone 5mg tablet PO SCH (08:11)
[2017-09-19] MEDS: FLUoxetine 20mg capsule PO SCH (08:12)
[2017-09-19] MEDS: levoFLOXACIN-Levaquin 500mg/D5 100 ML IV SCH (08:12)
[2017-09-19] MEDS: enoxaparin 60mg/0.6ml syringe SUBCUT SCH (08:13)
[2017-09-19] MEDS: spironolactone 50 MG tablet PO SCH (08:18)
[2017-09-19] MEDS: sacubitril/valsartan 24mg-26mg tablet PO SCH (08:18)
[2017-09-19] MEDS: pantoprazole 40mg Tablet.DR PO SCH (08:18)
[2017-09-19] MEDS: levoTHYROXINE 100mcg tablet PO SCH (08:18)
[2017-09-19] MEDS: albuterol 2.5 MG/3 ML nebule NEB PRN (10:01)
[2017-09-19] MEDS: LORazepam 0.5 MG tablet PO PRN (12:20)
[2017-09-19 12:31] VITALS: BP 113/42
[2017-09-19 12:32] VITALS: BP 97/63
[2017-09-19] MEDS ORDERED: LEVO500T2 PO (14:15)
[2017-09-19] MEDS ORDERED: FURO-150 PO (14:15)
[2017-09-19] MEDS ORDERED: LORA0.5T PO (17:58)
== END 2017-09-19 16:09 | disposition home or self-care (01) | DRG 391 ==
LOC: ER 08:10 → ED HOLD 14:35 → SUR 3N 16:30
PROVIDERS: ADMIT Internal Medicine; ATTEND Internal Medicine
DX: K59.00 Constipation, unspecified (principal); J18.1 Lobar pneumonia, unspecified organism; I50.22 Chronic systolic (congestive) heart failure; J44.0 Chronic obstructive pulmonary disease with (acute) lower respiratory infection; I48.2 Chronic atrial fibrillation; E03.9 Hypothyroidism, unspecified; G47.00 Insomnia, unspecified; E78.5 Hyperlipidemia, unspecified; E83.42 Hypomagnesemia; E87.6 Hypokalemia; F32.9 Major depressive disorder, single episode, unspecified; F41.9 Anxiety disorder, unspecified; Z90.49 Acquired absence of other specified parts of digestive tract; Z79.899 Other long term (current) drug therapy; Z88.5 Allergy status to narcotic agent; Z85.3 Personal history of malignant neoplasm of breast; Z87.891 Personal history of nicotine dependence; Z86.14 Personal history of Methicillin resistant Staphylococcus aureus infection
CPT/HCPCS: 36415; 71045; 74021; 74176; 80053; 81001; 83605; 83690; 83735; 83880; 84443; 84484; 85025; 85610; 85730; 87070; 93005; 94640; 94760; 96361; 96365; 96375; 96376; 99285; J0696; J1170; J1200; J1650; J1956; J2270; J2405; J3475; J3480; J7030; Q9963

== ENCOUNTER 2017-12-19 10:14 | Inpatient (IN) | payer MEDICARE, OTHER ==
[~2017-12-19] VITALS: Ht 160 cm; Wt 67.7 kg
[~2017-12-19 10:14] MED LIST changes: +DIAZ10TA4 PO; -FERR325T28 PO; +FURO-150 PO; -ONDA4TAB12 PO; +SACU1TAB PO; -SPIR25TA PO; +SPIR50TA5 PO; -TRAZ-146 PO; +TRAZ-219 PO
[2017-12-19 11:01] LABS: URINE HCG NEGATIVE (NEG)
[2017-12-19 11:06] LABS: BASOPHILS % (AUTO) 0.1 % (0-1); EOSINOPHILS # (AUTO) 0.1 X10'3 (0-0.9); EOSINOPHILS % (AUTO) 1.1 % (0-6); HEMATOCRIT 38.3 % (35.0-45.0); HEMOGLOBIN 12.4 g/dl (12.0-16.0); LYMPHOCYTES # (AUTO) 1.7 X10'3 (1.1-4.8); LYMPHOCYTES % (AUTO) 17.7 % (21-51); MEAN CORPUSCULAR HGB CONC 32.4 % (33.0-36.5); MEAN CORPUSCULAR VOLUME 92.3 FL (78-98); MEAN PLATELET VOLUME 7.5 FL (7.4-10.4); MONOCYTES # (AUTO) 0.7 X10'3 (0-0.9); MONOCYTES % (AUTO) 7.2 % (2-12); NEUTROPHILS # (AUTO) 6.9 X10'3 (1.8-7.7); NEUTROPHILS % (AUTO) 73.9 % (42-75); PLATELET COUNT 246 X10'3 (140-440); RED BLOOD COUNT 4.15 X10'6 (4.20-5.60); RED CELL DISTRIBUTION WIDTH 14.3 % (11.5-14.5); WHITE BLOOD COUNT 9.4 X10'3 (4.5-11.0)
[2017-12-19 11:13] LABS: INR 1.3 INR; PROTHROMBIN TIME 12.7 SECONDS (9.0-12.0)
[2017-12-19 11:16] LABS: ALANINE AMINOTRANSFERASE 19 U/L (12-78); ALBUMIN 3.5 G/DL (3.4-5.0); ALBUMIN/GLOBULIN RATIO 1.1 (1.1-1.5); ALKALINE PHOSPHATASE 70 IU/L (46-116); AMYLASE 20 U/L (25-115); ANION GAP 11 (8-16); ASPARTATE AMINO TRANSFERASE 17 U/L (10-37); BILIRUBIN,TOTAL 0.4 MG/DL (0.1-1.0); BLOOD UREA NITROGEN 17 MG/DL (7-18); BUN/CREATININE RATIO 20.2 (6.6-38.0); CALCIUM 9.2 MG/DL (8.5-10.1); CHLORIDE 104 MMOL/L (99-107); CREATININE 0.84 MG/DL (0.40-0.90); GLUCOSE 90 MG/DL (70-104); LIPASE 91 U/L (73-393); POTASSIUM 4.4 MMOL/L (3.5-5.1); SODIUM 142 MMOL/L (135-145); TOTAL CARBON DIOXIDE 27.5 MMOL/L (24-32); TOTAL PROTEIN 6.8 G/DL (6.4-8.2); eGFR 68 ML/MIN
[2017-12-19 11:19] LABS: CLARITY,URINE CLEAR (Clear); COLOR,URINE STRAW (Yellow); GLUCOSE, URINE NEGATIVE (Neg); KETONES,URINE NEGATIVE (Neg); LEUKOCYTE ESTERASE ,URINE NEGATIVE (Neg); NITRITES, URINE NEGATIVE (Neg); OCCULT BLOOD,URINE NEGATIVE (Neg); PH,URINE 5.5 (4.8-8.0); PROTEIN,URINE NEGATIVE (Neg); UROBILINOGEN,URINE 0.2 E.U/dL (0.2-1.0)
[2017-12-19 11:28] LABS: UA COLLECTION TYPE CLN CATCH MIDSTREAM
[2017-12-19] MEDS ORDERED: morphine 4 MG/ML inj SYRINge IV ONE (12:40)
[2017-12-19] MEDS ORDERED: normal saline 1000ml 1,000 ML IV ONE (13:25)
[2017-12-19] MEDS ORDERED: magnesium hydroxide 30ml (MOM) UD suspension PO PRN (13:25)
[2017-12-19] MEDS ORDERED: ondansetron/PF 4mg/2ml inj IV PRN (13:25)
[2017-12-19] MEDS ORDERED: mag hydrox/Alum hydrox/simeth 30ml oral suspension PO PRN (13:25)
[2017-12-19] MEDS ORDERED: acetaminophen 325mg tablet PO PRN ×2 (13:25)
[2017-12-19] MEDS ORDERED: magnesium 4gm in 100ml NS 100 ML IV PRN (13:25)
[2017-12-19] MEDS ORDERED: potassium Cl 40MEQ/NS 500ml 500 ML IV PRN (13:25)
[2017-12-19] MEDS ORDERED: magnesium Cl slow-release 64mg tablet PO PRN (13:25)
[2017-12-19] MEDS ORDERED: magnesium 1gm/100ml D5W IVPB 100 ML IV PRN (13:25)
[2017-12-19] MEDS ORDERED: potassium Cl 20 mEq SR tablet PO PRN ×2 (13:25)
[2017-12-19] MEDS ORDERED: HYDROcodone/acetaminophen 5mg/325mg tablet PO PRN ×2 (13:25→16:15)
[2017-12-19] MEDS ORDERED: morphine 2 MG/ML inj. syringe IV PRN (13:25)
[2017-12-19] MEDS ORDERED: LEVO100T PO (15:09)
[2017-12-19] MEDS ORDERED: SPIR25TA5 PO (15:09)
[2017-12-19] MEDS ORDERED: LORazepam 2 mg/ml vial IM PRN (16:25)
[2017-12-19] MEDS ORDERED: metoprolol tartrate 1mg/ml inj IV PRN (16:25)
[2017-12-19] MEDS ORDERED: diazepam 5mg tablet PO PRN (16:35)
[2017-12-19] MEDS ORDERED: enoxaparin 40mg/0.4ml syringe SQ SCH ×3 (16:45→17:48)
[2017-12-19 19:30] VITALS: BP 94/52
[2017-12-19] MEDS: carVEDilol 3.125mg tablet PO SCH (20:00)
[2017-12-19] MEDS: morphine 2 MG/ML inj. syringe IV PRN (20:33)
[2017-12-19] MEDS: traZODone 50mg tablet PO SCH (20:46)
[2017-12-19] MEDS: pravastatin 40mg tablet PO SCH (20:46)
[2017-12-20] VITALS: BP 118/53
[2017-12-20] MEDS: morphine 2 MG/ML inj. syringe IV PRN ×5 (01:25→20:39)
[2017-12-20 06:38] LABS: BASOPHILS % (AUTO) 0.3 % (0-1); EOSINOPHILS # (AUTO) 0.2 X10'3 (0-0.9); HEMATOCRIT 32.6 % (35.0-45.0); HEMOGLOBIN 10.8 g/dl (12.0-16.0); LYMPHOCYTES # (AUTO) 1.5 X10'3 (1.1-4.8); LYMPHOCYTES % (AUTO) 28.2 % (21-51); MEAN CORPUSCULAR HEMOGLOBIN 30.5 PG (27.0-31.0); MEAN CORPUSCULAR VOLUME 92.4 FL (78-98); MEAN PLATELET VOLUME 7.4 FL (7.4-10.4); MONOCYTES # (AUTO) 0.5 X10'3 (0-0.9); MONOCYTES % (AUTO) 9.5 % (2-12); NEUTROPHILS # (AUTO) 3.2 X10'3 (1.8-7.7); PLATELET COUNT 187 X10'3 (140-440); RED BLOOD COUNT 3.53 X10'6 (4.20-5.60); RED CELL DISTRIBUTION WIDTH 14.2 % (11.5-14.5); WHITE BLOOD COUNT 5.4 X10'3 (4.5-11.0)
[2017-12-20 06:46] LABS: ALBUMIN 2.6 G/DL (3.4-5.0); ANION GAP 9 (8-16); BLOOD UREA NITROGEN 14 MG/DL (7-18); BUN/CREATININE RATIO 21.9 (6.6-38.0); CALCIUM 8.3 MG/DL (8.5-10.1); CHLORIDE 108 MMOL/L (99-107); CREATININE 0.64 MG/DL (0.40-0.90); GLUCOSE 78 MG/DL (70-104); MAGNESIUM 1.7 MG/DL (1.5-2.4); POTASSIUM 3.3 MMOL/L (3.5-5.1); SODIUM 144 MMOL/L (135-145); TOTAL CARBON DIOXIDE 27.4 MMOL/L (24-32); eGFR > 90 ML/MIN
[2017-12-20 07:00] VITALS: BP 102/64
[2017-12-20] MEDS: K and/or MAG REPLACEMENT MC SCH (08:00)
[2017-12-20] MEDS: FLUoxetine 20mg capsule PO SCH (08:00)
[2017-12-20] MEDS: carVEDilol 3.125mg tablet PO SCH ×2 (08:44→20:41)
[2017-12-20] MEDS: potassium Cl 40MEQ/NS 500ml 500 ML IV PRN (09:10)
[2017-12-20] MEDS: enoxaparin 40mg/0.4ml syringe SQ SCH ×2 (10:32→18:12)
[2017-12-20] MEDS: enoxaparin 30mg/0.3ml syringe SQ SCH ×2 (10:32→18:12)
[2017-12-20 12:00] VITALS: BP 108/68
[2017-12-20] MEDS: normal saline 1000ml 1,000 ML IV SCH ×2 (14:42→20:15)
[2017-12-20 18:00] VITALS: BP 103/50
[2017-12-20] MEDS: traZODone 50mg tablet PO SCH (20:41)
[2017-12-20] MEDS: diatr meglu/diatrizoate 30ml oral sol.-(3 dose) bottle PO SCH (20:44)
[2017-12-20] MEDS: pravastatin 40mg tablet PO SCH (21:00)
[2017-12-21] VITALS: BP 91/52
[2017-12-21] MEDS: diphenhydrAMINE 50 mg/ml inj IV PRN ×2 (00:09→08:35)
[2017-12-21] MEDS: morphine 2 MG/ML inj. syringe IV PRN ×5 (00:35→22:05)
[2017-12-21 05:48] LABS: BASOPHILS % (AUTO) 0.2 % (0-1); EOSINOPHILS # (AUTO) 0.2 X10'3 (0-0.9); EOSINOPHILS % (AUTO) 2.9 % (0-6); HEMATOCRIT 34.6 % (35.0-45.0); HEMOGLOBIN 11.4 g/dl (12.0-16.0); LYMPHOCYTES # (AUTO) 1.5 X10'3 (1.1-4.8); LYMPHOCYTES % (AUTO) 19.1 % (21-51); MEAN CORPUSCULAR HEMOGLOBIN 30.5 PG (27.0-31.0); MEAN CORPUSCULAR HGB CONC 33.1 % (33.0-36.5); MEAN CORPUSCULAR VOLUME 92.1 FL (78-98); MEAN PLATELET VOLUME 7.5 FL (7.4-10.4); MONOCYTES # (AUTO) 0.7 X10'3 (0-0.9); MONOCYTES % (AUTO) 9.4 % (2-12); NEUTROPHILS # (AUTO) 5.4 X10'3 (1.8-7.7); NEUTROPHILS % (AUTO) 68.4 % (42-75); PLATELET COUNT 206 X10'3 (140-440); RED BLOOD COUNT 3.75 X10'6 (4.20-5.60); RED CELL DISTRIBUTION WIDTH 13.8 % (11.5-14.5); WHITE BLOOD COUNT 7.8 X10'3 (4.5-11.0)
[2017-12-21] MEDS: normal saline 1000ml 1,000 ML IV SCH ×3 (05:58→21:04)
[2017-12-21 06:11] LABS: ALBUMIN 2.8 G/DL (3.4-5.0); ANION GAP 10 (8-16); BLOOD UREA NITROGEN 10 MG/DL (7-18); BUN/CREATININE RATIO 16.4 (6.6-38.0); CALCIUM 8.6 MG/DL (8.5-10.1); CHLORIDE 108 MMOL/L (99-107); CREATININE 0.61 MG/DL (0.40-0.90); GLUCOSE 69 MG/DL (70-104); MAGNESIUM 1.7 MG/DL (1.5-2.4); POTASSIUM 3.6 MMOL/L (3.5-5.1); SODIUM 144 MMOL/L (135-145); eGFR > 90 ML/MIN
[2017-12-21] MEDS: carVEDilol 3.125mg tablet PO SCH ×2 (07:12→21:04)
[2017-12-21] MEDS: diatr meglu/diatrizoate 30ml oral sol.-(3 dose) bottle PO SCH ×2 (07:13→19:11)
[2017-12-21] MEDS: FLUoxetine 20mg capsule PO SCH (07:26)
[2017-12-21] MEDS: K and/or MAG REPLACEMENT MC SCH (07:26)
[2017-12-21] MEDS: levoTHYROXINE 100mcg tablet PO SCH (07:27)
[2017-12-21] MEDS: enoxaparin 30mg/0.3ml syringe SQ SCH ×2 (07:27→21:06)
[2017-12-21] MEDS: enoxaparin 40mg/0.4ml syringe SQ SCH ×2 (07:28→21:05)
[2017-12-21 08:00] VITALS: BP 109/65
[2017-12-21 12:12] VITALS: BP 95/58
[2017-12-21] MEDS ORDERED: PEG 3350/Na sulf,bicarb,Cl/KCl oral sol 4 liter bottle PO ONE (13:30)
[2017-12-21 18:00] VITALS: BP 111/66
[2017-12-21] MEDS: diphenhydrAMINE 25mg capsule PO PRN (21:04)
[2017-12-21] MEDS: pravastatin 40mg tablet PO SCH (22:04)
[2017-12-21] MEDS: traZODone 50mg tablet PO SCH (22:05)
[2017-12-22] VITALS (14 sets, daily range): BP systolic 93–150; BP diastolic 55–83
[2017-12-22] MEDS: morphine 2 MG/ML inj. syringe IV PRN ×3 (02:41→19:58)
[2017-12-22] MEDS: diphenhydrAMINE 25mg capsule PO PRN ×3 (04:56→19:57)
[2017-12-22] MEDS: normal saline 1000ml 1,000 ML IV SCH ×2 (05:03→22:30)
[2017-12-22 06:04] LABS: BASOPHILS % (AUTO) 0.1 % (0-1); EOSINOPHILS # (AUTO) 0.2 X10'3 (0-0.9); EOSINOPHILS % (AUTO) 2.6 % (0-6); HEMATOCRIT 30.4 % (35.0-45.0); HEMOGLOBIN 9.9 g/dl (12.0-16.0); LYMPHOCYTES # (AUTO) 1.6 X10'3 (1.1-4.8); LYMPHOCYTES % (AUTO) 23.9 % (21-51); MEAN CORPUSCULAR HGB CONC 32.6 % (33.0-36.5); MEAN CORPUSCULAR VOLUME 92.2 FL (78-98); MEAN PLATELET VOLUME 7.6 FL (7.4-10.4); MONOCYTES # (AUTO) 0.7 X10'3 (0-0.9); MONOCYTES % (AUTO) 10.4 % (2-12); NEUTROPHILS # (AUTO) 4.3 X10'3 (1.8-7.7); PLATELET COUNT 187 X10'3 (140-440); RED CELL DISTRIBUTION WIDTH 14.1 % (11.5-14.5); WHITE BLOOD COUNT 6.8 X10'3 (4.5-11.0)
[2017-12-22 06:14] LABS: ALBUMIN 2.5 G/DL (3.4-5.0); ANION GAP 11 (8-16); BLOOD UREA NITROGEN 5 MG/DL (7-18); BUN/CREATININE RATIO 7.9 (6.6-38.0); CALCIUM 8.2 MG/DL (8.5-10.1); CHLORIDE 109 MMOL/L (99-107); CREATININE 0.63 MG/DL (0.40-0.90); GLUCOSE 82 MG/DL (70-104); MAGNESIUM 1.6 MG/DL (1.5-2.4); POTASSIUM 3.1 MMOL/L (3.5-5.1); SODIUM 147 MMOL/L (135-145); TOTAL CARBON DIOXIDE 27.3 MMOL/L (24-32); eGFR > 90 ML/MIN
[2017-12-22] MEDS: carVEDilol 3.125mg tablet PO SCH ×2 (07:19→19:55)
[2017-12-22] MEDS: enoxaparin 30mg/0.3ml syringe SQ SCH ×2 (07:20→19:56)
[2017-12-22] MEDS: levoTHYROXINE 100mcg tablet PO SCH (07:20)
[2017-12-22] MEDS: FLUoxetine 20mg capsule PO SCH (07:20)
[2017-12-22] MEDS: K and/or MAG REPLACEMENT MC SCH (07:20)
[2017-12-22] MEDS: enoxaparin 40mg/0.4ml syringe SQ SCH ×2 (07:20→19:56)
[2017-12-22] MEDS: potassium Cl 40MEQ/NS 500ml 500 ML IV PRN (08:32)
[2017-12-22] MEDS ORDERED: magnesium citrate 296ml oral solution PO ONE (09:35)
[2017-12-22] MEDS ORDERED: fentaNYL/PF 50MCG/1 ML 2ML syringe ONE (10:53)
[2017-12-22] MEDS ORDERED: MIDAZolam 5mg/5ml vial ONE (10:53)
[2017-12-22] MEDS: predniSONE 20 mg tablet PO SCH (15:40)
[2017-12-22] MEDS: traZODone 50mg tablet PO SCH (21:03)
[2017-12-22] MEDS: pravastatin 40mg tablet PO SCH (21:03)
[2017-12-23 00:02] VITALS: BP 120/65
[2017-12-23] MEDS: diphenhydrAMINE 25mg capsule PO PRN ×3 (03:32→21:40)
[2017-12-23] MEDS: morphine 2 MG/ML inj. syringe IV PRN (03:33)
[2017-12-23 07:00] VITALS: BP 119/68
[2017-12-23 07:59] LABS: BASOPHILS % (AUTO) 0.1 % (0-1); EOSINOPHILS # (AUTO) 0.1 X10'3 (0-0.9); EOSINOPHILS % (AUTO) 1.1 % (0-6); HEMOGLOBIN 9.7 g/dl (12.0-16.0); LYMPHOCYTES # (AUTO) 1.2 X10'3 (1.1-4.8); MEAN CORPUSCULAR HEMOGLOBIN 30.3 PG (27.0-31.0); MEAN CORPUSCULAR HGB CONC 32.3 % (33.0-36.5); MEAN CORPUSCULAR VOLUME 93.7 FL (78-98); MEAN PLATELET VOLUME 7.9 FL (7.4-10.4); MONOCYTES # (AUTO) 0.4 X10'3 (0-0.9); MONOCYTES % (AUTO) 6.8 % (2-12); NEUTROPHILS # (AUTO) 4.9 X10'3 (1.8-7.7); PLATELET COUNT 162 X10'3 (140-440); WHITE BLOOD COUNT 6.6 X10'3 (4.5-11.0)
[2017-12-23] MEDS: K and/or MAG REPLACEMENT MC SCH (08:00)
[2017-12-23 08:10] LABS: ALBUMIN 2.6 G/DL (3.4-5.0); ANION GAP 9 (8-16); BLOOD UREA NITROGEN 3 MG/DL (7-18); BUN/CREATININE RATIO 5.9 (6.6-38.0); CALCIUM 8.7 MG/DL (8.5-10.1); CHLORIDE 109 MMOL/L (99-107); CREATININE 0.51 MG/DL (0.40-0.90); GLUCOSE 99 MG/DL (70-104); POTASSIUM 4.1 MMOL/L (3.5-5.1); SODIUM 144 MMOL/L (135-145); TOTAL CARBON DIOXIDE 26.4 MMOL/L (24-32); eGFR > 90 ML/MIN
[2017-12-23] MEDS: normal saline 1000ml 1,000 ML IV SCH (08:15)
[2017-12-23] MEDS: levoTHYROXINE 100mcg tablet PO SCH (08:41)
[2017-12-23] MEDS: FLUoxetine 20mg capsule PO SCH (08:43)
[2017-12-23] MEDS: predniSONE 20 mg tablet PO SCH (08:43)
[2017-12-23] MEDS: carVEDilol 3.125mg tablet PO SCH ×2 (08:43→20:11)
[2017-12-23] MEDS: enoxaparin 40mg/0.4ml syringe SQ SCH (08:44)
[2017-12-23] MEDS: enoxaparin 30mg/0.3ml syringe SQ SCH (08:45)
[2017-12-23] MEDS ORDERED: potassium Cl oral solution 20 MEQ/15 ML PO ONE (10:45)
[2017-12-23] MEDS ORDERED: furosemide 40mg/4ml inj IV ONE (10:45)
[2017-12-23 12:00] VITALS: BP 114/72
[2017-12-23 12:43] LABS: CLARITY,URINE CLEAR (Clear); COLOR,URINE YELLOW (Yellow); GLUCOSE, URINE NEGATIVE (Neg); KETONES,URINE NEGATIVE (Neg); LEUKOCYTE ESTERASE ,URINE SMALL (Neg); NITRITES, URINE NEGATIVE (Neg); OCCULT BLOOD,URINE MODERATE (Neg); PROTEIN,URINE NEGATIVE (Neg); UA COLLECTION TYPE CLN CATCH MIDSTREAM; UROBILINOGEN,URINE 0.2 E.U/dL (0.2-1.0)
[2017-12-23 12:52] LABS: MUCUS STRANDS FEW /LPF (Neg); SQUAMOUS EPITHELIAL CELL,UR FEW /LPF (FEW)
[2017-12-23 12:58] LABS: BACTERIA,URINE 2+ /HPF (Neg); RBC,URINE 0-2 /HPF (0-2); RENAL CELLS, URINE FEW /HPF
[2017-12-23] MEDS: CefTRIAXone/D5W-Rocephin 1gm 50 ML IV SCH (14:48)
[2017-12-23 18:00] VITALS: BP 120/81
[2017-12-23] MEDS ORDERED: rivaroxaban 20mg tablet PO SCH (20:00)
[2017-12-23] MEDS: pravastatin 40mg tablet PO SCH (21:39)
[2017-12-23] MEDS: traZODone 50mg tablet PO SCH (21:40)
[2017-12-24] VITALS: BP 116/70
[2017-12-24 07:00] VITALS: BP 112/66
[2017-12-24 07:35] LABS: BASOPHILS % (AUTO) 0.2 % (0-1); EOSINOPHILS # (AUTO) 0.1 X10'3 (0-0.9); EOSINOPHILS % (AUTO) 1.4 % (0-6); HEMATOCRIT 30.5 % (35.0-45.0); LYMPHOCYTES # (AUTO) 1.6 X10'3 (1.1-4.8); LYMPHOCYTES % (AUTO) 17.9 % (21-51); MEAN CORPUSCULAR HEMOGLOBIN 30.4 PG (27.0-31.0); MEAN CORPUSCULAR HGB CONC 32.8 % (33.0-36.5); MEAN CORPUSCULAR VOLUME 92.9 FL (78-98); MEAN PLATELET VOLUME 7.7 FL (7.4-10.4); MONOCYTES # (AUTO) 0.4 X10'3 (0-0.9); MONOCYTES % (AUTO) 4.9 % (2-12); NEUTROPHILS # (AUTO) 6.7 X10'3 (1.8-7.7); NEUTROPHILS % (AUTO) 75.6 % (42-75); PLATELET COUNT 189 X10'3 (140-440); RED BLOOD COUNT 3.28 X10'6 (4.20-5.60); RED CELL DISTRIBUTION WIDTH 14.4 % (11.5-14.5); WHITE BLOOD COUNT 8.8 X10'3 (4.5-11.0)
[2017-12-24 07:46] LABS: ALBUMIN 2.8 G/DL (3.4-5.0); ANION GAP 6 (8-16); BLOOD UREA NITROGEN 6 MG/DL (7-18); BUN/CREATININE RATIO 8.3 (6.6-38.0); CALCIUM 9.2 MG/DL (8.5-10.1); CHLORIDE 109 MMOL/L (99-107); CREATININE 0.72 MG/DL (0.40-0.90); GLUCOSE 88 MG/DL (70-104); POTASSIUM 3.5 MMOL/L (3.5-5.1); SODIUM 146 MMOL/L (135-145); TOTAL CARBON DIOXIDE 31.1 MMOL/L (24-32); eGFR 82 ML/MIN
[2017-12-24] MEDS ORDERED: furosemide 40mg tablet PO SCH (08:00)
[2017-12-24] MEDS: K and/or MAG REPLACEMENT MC SCH (08:00)
[2017-12-24] MEDS: CefTRIAXone/D5W-Rocephin 1gm 50 ML IV SCH (08:25)
[2017-12-24] MEDS: predniSONE 20 mg tablet PO SCH (08:26)
[2017-12-24] MEDS: FLUoxetine 20mg capsule PO SCH (08:26)
[2017-12-24] MEDS: levoTHYROXINE 100mcg tablet PO SCH (08:27)
[2017-12-24] MEDS: carVEDilol 3.125mg tablet PO SCH (08:27)
[2017-12-24] MEDS ORDERED: rivaroxaban 20mg tablet PO SCH ×2 (09:09→21:00)
[2017-12-24 12:00] VITALS: BP 119/69
[2017-12-24] MEDS ORDERED: PRED10TA23 PO (12:04)
[2017-12-24] MEDS ORDERED: FURO-150 PO (12:04)
[2017-12-24] MEDS ORDERED: RIVA20TA PO (12:04)
[2017-12-24] MEDS ORDERED: LEVO500T2 PO (12:04)
[2017-12-24] MEDS: diphenhydrAMINE 25mg capsule PO PRN (12:59)
[2017-12-24] MEDS ORDERED: POTA10TA19 PO (16:05)
[2017-12-24] MEDS ORDERED: lactobacillus rhamnosus 10,000 MMU CELLS/CAPSULE PO SCH (20:00)
== END 2017-12-24 13:34 | disposition home or self-care (01) | DRG 389 ==
LOC: ER 10:14 → ED HOLD 13:24 → SUR 3N 18:46
PROVIDERS: ADMIT Hospitalist; ATTEND Hospitalist
PROC: 0DBB8ZX Excision of Ileum, Via Natural or Artificial Opening Endoscopic, Diagnostic (ICD-10-PCS; principal; 2017-12-22)
DX: K56.600 Partial intestinal obstruction, unspecified as to cause (principal); I50.22 Chronic systolic (congestive) heart failure; I48.0 Paroxysmal atrial fibrillation; J45.909 Unspecified asthma, uncomplicated; I25.10 Atherosclerotic heart disease of native coronary artery without angina pectoris; E87.6 Hypokalemia; G30.9 Alzheimer's disease, unspecified; F02.80 Dementia in other diseases classified elsewhere, unspecified severity, without behavioral disturbance, psychotic disturbance, mood disturbance, and anxiety; K57.90 Diverticulosis of intestine, part unspecified, without perforation or abscess without bleeding; Z90.710 Acquired absence of both cervix and uterus; Z95.0 Presence of cardiac pacemaker; Z79.01 Long term (current) use of anticoagulants; Z85.3 Personal history of malignant neoplasm of breast; Z86.73 Personal history of transient ischemic attack (TIA), and cerebral infarction without residual deficits
CPT/HCPCS: 36415; 45380; 74176; 80048; 80053; 81001; 81003; 81025; 82150; 83690; 83735; 83880; 84443; 85025; 85610; 87070; 87077; 87088; 87186; 93005; 93306; 96374; 99152; 99153; 99285; A4620; G0378; J0696; J1200; J1650; J1940; J2250; J2270; J3010; J3480; J7030; J7512; Q0163; Q9963

== ENCOUNTER 2017-12-27 17:44 | Inpatient (IN) | payer MEDICARE, OTHER ==
[~2017-12-27] VITALS: Ht 160 cm; Wt 66.0 kg
[~2017-12-27 17:44] MED LIST changes: -ALBU8.5H8 IH; -BUSP10TA11 PO; -LACT10SO PO; +LEVO100T PO; -LEVO100T46 PO; +LEVO500T2 PO; -PANT-47 PO; +POTA10TA19 PO; +PRED10TA23 PO; -SACU1TAB PO; -SPIR50TA5 PO; +etomidate 2mg/ml inj. ONE
[2017-12-27 18:16] LABS: BASOPHILS % (AUTO) 0.3 % (0-1); EOSINOPHILS # (AUTO) 0.2 X10'3 (0-0.9); EOSINOPHILS % (AUTO) 1.3 % (0-6); HEMOGLOBIN 12.9 g/dl (12.0-16.0); LYMPHOCYTES # (AUTO) 0.9 X10'3 (1.1-4.8); LYMPHOCYTES % (AUTO) 6.8 % (21-51); MEAN CORPUSCULAR HEMOGLOBIN 30.1 PG (27.0-31.0); MEAN CORPUSCULAR HGB CONC 32.3 % (33.0-36.5); MEAN CORPUSCULAR VOLUME 92.9 FL (78-98); MEAN PLATELET VOLUME 7.7 FL (7.4-10.4); MONOCYTES # (AUTO) 0.3 X10'3 (0-0.9); MONOCYTES % (AUTO) 2.4 % (2-12); NEUTROPHILS # (AUTO) 12.4 X10'3 (1.8-7.7); NEUTROPHILS % (AUTO) 89.2 % (42-75); PLATELET COUNT 331 X10'3 (140-440); RED BLOOD COUNT 4.31 X10'6 (4.20-5.60); RED CELL DISTRIBUTION WIDTH 14.4 % (11.5-14.5); WHITE BLOOD COUNT 13.9 X10'3 (4.5-11.0)
[2017-12-27] MEDS ORDERED: etomidate 2mg/ml inj. IV ONE (18:25)
[2017-12-27 18:29] LABS: INR 1.1 INR; PARTIAL THROMBOPLASTIN TIME 26 SECONDS (22-32); PROTHROMBIN TIME 10.7 SECONDS (9.0-12.0)
[2017-12-27 18:35] LABS: ALANINE AMINOTRANSFERASE 44 U/L (12-78); ALBUMIN 3.3 G/DL (3.4-5.0); ALKALINE PHOSPHATASE 58 IU/L (46-116); ANION GAP 12 (8-16); ASPARTATE AMINO TRANSFERASE 56 U/L (10-37); BILIRUBIN,TOTAL 0.3 MG/DL (0.1-1.0); BLOOD UREA NITROGEN 27 MG/DL (7-18); BUN/CREATININE RATIO 22.1 (6.6-38.0); CALCIUM 9.8 MG/DL (8.5-10.1); CHLORIDE 102 MMOL/L (99-107); CREATININE 1.22 MG/DL (0.40-0.90); GLUCOSE 214 MG/DL (70-104); POTASSIUM 3.2 MMOL/L (3.5-5.1); SODIUM 141 MMOL/L (135-145); TOTAL CARBON DIOXIDE 27.1 MMOL/L (24-32); TOTAL PROTEIN 6.5 G/DL (6.4-8.2); eGFR 44 ML/MIN
[2017-12-27] MEDS ORDERED: potassium Cl 20 mEq SR tablet PO STA (18:45)
[2017-12-27] MEDS ORDERED: potassium 10mEq/100ml NS w/LIDOcaine (10mg/bag) IV ONE (18:45)
[2017-12-27 19:04] LABS: MAGNESIUM 1.6 MG/DL (1.5-2.4); PHOSPHORUS 2.6 MG/DL (2.3-4.5)
[2017-12-27] MEDS ORDERED: amiodarone 50MG/ML inj IV ONE (19:15)
[2017-12-27] MEDS ORDERED: amiodarone 150mg/dext, iso-os 100 ML IV ONE (19:20)
[2017-12-27] MEDS ORDERED: magnesium 4gm in 100ml NS 100 ML IV PRN (20:00)
[2017-12-27] MEDS ORDERED: potassium Cl 40MEQ/NS 500ml 500 ML IV PRN ×2 (20:00)
[2017-12-27] MEDS ORDERED: acetaminophen 325mg tablet PO PRN (20:00)
[2017-12-27] MEDS ORDERED: potassium Cl 20 mEq SR tablet PO PRN (20:00)
[2017-12-27] MEDS ORDERED: ondansetron/PF 4mg/2ml inj IV PRN (20:00)
[2017-12-27] MEDS ORDERED: magnesium Cl slow-release 64mg tablet PO PRN (20:00)
[2017-12-27] MEDS ORDERED: ONDA4TAB9 SL (20:09)
[2017-12-27] MEDS ORDERED: HYDR-4383 PO (20:09)
[2017-12-27] MEDS ORDERED: CARV3.122 PO (20:09)
[2017-12-27] MEDS ORDERED: MELO-100 PO (20:09)
[2017-12-27] MEDS ORDERED: PRAV40TA3 PO (20:09)
[2017-12-27] MEDS ORDERED: LORA0.5T PO (20:09)
[2017-12-27] MEDS ORDERED: FLUO20CA39 PO (20:09)
[2017-12-27] MEDS ORDERED: CYCL-394 PO (20:09)
[2017-12-27] MEDS ORDERED: PRED10TA23 PO (20:09)
[2017-12-27] MEDS ORDERED: ACET-2119 PO (20:09)
[2017-12-27] MEDS ORDERED: LEVO500T2 PO (20:09)
[2017-12-27] MEDS ORDERED: DIAZ10TA4 PO (20:09)
[2017-12-27] MEDS ORDERED: LACT10SO PO (20:09)
[2017-12-27] MEDS ORDERED: FURO40TA4 PO (20:09)
[2017-12-27] MEDS ORDERED: SPIR25TA5 PO (20:09)
[2017-12-27] MEDS ORDERED: SACU1TAB PO (20:09)
[2017-12-27] MEDS ORDERED: TRAM50TA2 PO (20:09)
[2017-12-27] MEDS ORDERED: RIVA20TA PO (20:09)
[2017-12-27] MEDS ORDERED: TRAZ-219 PO (20:09)
[2017-12-27] MEDS ORDERED: LEVO100T PO (20:09)
[2017-12-27 22:02] VITALS: BP 122/73
[2017-12-27 23:00] VITALS: BP 100/65
[2017-12-28 02:54] VITALS: BP 111/69
[2017-12-28 06:00] VITALS: BP 117/73
[2017-12-28 07:02] LABS: BASOPHILS % (AUTO) 0.1 % (0-1); EOSINOPHILS # (AUTO) 0.2 X10'3 (0-0.9); EOSINOPHILS % (AUTO) 1.7 % (0-6); HEMATOCRIT 34.9 % (35.0-45.0); HEMOGLOBIN 11.4 g/dl (12.0-16.0); LYMPHOCYTES # (AUTO) 1.7 X10'3 (1.1-4.8); LYMPHOCYTES % (AUTO) 15.9 % (21-51); MEAN CORPUSCULAR HEMOGLOBIN 30.3 PG (27.0-31.0); MEAN CORPUSCULAR HGB CONC 32.7 % (33.0-36.5); MEAN CORPUSCULAR VOLUME 92.6 FL (78-98); MEAN PLATELET VOLUME 8.3 FL (7.4-10.4); MONOCYTES # (AUTO) 0.6 X10'3 (0-0.9); MONOCYTES % (AUTO) 6.2 % (2-12); NEUTROPHILS % (AUTO) 76.1 % (42-75); PLATELET COUNT 262 X10'3 (140-440); RED BLOOD COUNT 3.77 X10'6 (4.20-5.60); WHITE BLOOD COUNT 10.5 X10'3 (4.5-11.0)
[2017-12-28 07:18] LABS: ALANINE AMINOTRANSFERASE 36 U/L (12-78); ALBUMIN 2.7 G/DL (3.4-5.0); ALBUMIN/GLOBULIN RATIO 0.9 (1.1-1.5); ALKALINE PHOSPHATASE 50 IU/L (46-116); ANION GAP 7 (8-16); ASPARTATE AMINO TRANSFERASE 24 U/L (10-37); BILIRUBIN,TOTAL 0.3 MG/DL (0.1-1.0); BLOOD UREA NITROGEN 20 MG/DL (7-18); BUN/CREATININE RATIO 28.2 (6.6-38.0); CALCIUM 8.4 MG/DL (8.5-10.1); CHLORIDE 108 MMOL/L (99-107); CREATININE 0.71 MG/DL (0.40-0.90); GLUCOSE 89 MG/DL (70-104); POTASSIUM 3.4 MMOL/L (3.5-5.1); SODIUM 144 MMOL/L (135-145); TOTAL CARBON DIOXIDE 29.1 MMOL/L (24-32); TOTAL PROTEIN 5.7 G/DL (6.4-8.2); eGFR 83 ML/MIN
[2017-12-28 07:25] LABS: MAGNESIUM 1.7 MG/DL (1.5-2.4)
[2017-12-28] MEDS: K and/or MAG REPLACEMENT MC SCH (08:00)
[2017-12-28] MEDS ORDERED: diazepam 5mg tablet PO PRN (09:05)
[2017-12-28] MEDS ORDERED: lactulose 20gm/30ml cup PO PRN (09:05)
[2017-12-28] MEDS: potassium Cl 20 mEq SR tablet PO PRN ×2 (09:05→11:52)
[2017-12-28] MEDS: sacubitril/valsartan 24mg-26mg tablet PO SCH ×2 (09:05→21:46)
[2017-12-28] MEDS: prednisone 10mg tablet PO SCH (09:06)
[2017-12-28] MEDS ORDERED: atorvastatin 10mg tablet PO SCH ×2 (09:21→09:22)
[2017-12-28] MEDS: levoTHYROXINE 100mcg tablet PO SCH (10:30)
[2017-12-28 11:00] VITALS: BP 92/71
[2017-12-28] MEDS: HYDROcodone/acetaminophen 5mg/325mg tablet PO PRN ×2 (11:52→12:45)
[2017-12-28 15:00] VITALS: BP 104/67
[2017-12-28] MEDS: LORazepam 0.5 MG tablet PO PRN (16:57)
[2017-12-28 19:00] VITALS: BP 118/75
[2017-12-28] MEDS ORDERED: potassium Cl 20 mEq SR tablet PO ONE (19:45)
[2017-12-28] MEDS ORDERED: carVEDilol 3.125mg tablet PO SCH (20:00)
[2017-12-28] MEDS: carvedilol 6.25mg tablet PO SCH (20:27)
[2017-12-28] MEDS: amiodarone 200mg tablet PO SCH (20:27)
[2017-12-28] MEDS: digoxin 250mcg (0.25mg) tablet PO SCH (20:28)
[2017-12-28] MEDS: traMADol 50MG tablet PO SCH (20:29)
[2017-12-28] MEDS: magnesium 1gm/100ml D5W IVPB 100 ML IV PRN ×2 (20:31→22:32)
[2017-12-28] MEDS ORDERED: rivaroxaban 20mg tablet PO SCH (21:00)
[2017-12-28] MEDS ORDERED: traZODone 50mg tablet PO SCH (21:00)
[2017-12-28 23:00] VITALS: BP 91/57
[2017-12-29 03:00] VITALS: BP 105/67
[2017-12-29] MEDS: HYDROcodone/acetaminophen 5mg/325mg tablet PO PRN (03:40)
[2017-12-29 07:00] VITALS: BP 100/62
[2017-12-29 07:00] LABS: BASOPHILS % (AUTO) 0.3 % (0-1); EOSINOPHILS # (AUTO) 0.2 X10'3 (0-0.9); EOSINOPHILS % (AUTO) 2.2 % (0-6); HEMATOCRIT 39.4 % (35.0-45.0); HEMOGLOBIN 12.6 g/dl (12.0-16.0); LYMPHOCYTES # (AUTO) 3.1 X10'3 (1.1-4.8); LYMPHOCYTES % (AUTO) 31.1 % (21-51); MEAN CORPUSCULAR VOLUME 93.7 FL (78-98); MEAN PLATELET VOLUME 8.2 FL (7.4-10.4); MONOCYTES # (AUTO) 0.7 X10'3 (0-0.9); MONOCYTES % (AUTO) 7.5 % (2-12); NEUTROPHILS # (AUTO) 5.8 X10'3 (1.8-7.7); NEUTROPHILS % (AUTO) 58.9 % (42-75); PLATELET COUNT 264 X10'3 (140-440); RED BLOOD COUNT 4.21 X10'6 (4.20-5.60); RED CELL DISTRIBUTION WIDTH 14.8 % (11.5-14.5); WHITE BLOOD COUNT 9.8 X10'3 (4.5-11.0)
[2017-12-29 07:11] LABS: ANION GAP 6 (8-16); BLOOD UREA NITROGEN 14 MG/DL (7-18); BUN/CREATININE RATIO 20.6 (6.6-38.0); CALCIUM 9.5 MG/DL (8.5-10.1); CHLORIDE 105 MMOL/L (99-107); CREATININE 0.68 MG/DL (0.40-0.90); GLUCOSE 85 MG/DL (70-104); POTASSIUM 4.6 MMOL/L (3.5-5.1); SODIUM 139 MMOL/L (135-145); TOTAL CARBON DIOXIDE 27.7 MMOL/L (24-32); eGFR 87 ML/MIN
[2017-12-29 07:12] LABS: ALANINE AMINOTRANSFERASE 46 U/L (12-78); ALBUMIN 2.9 G/DL (3.4-5.0); ALBUMIN/GLOBULIN RATIO 0.9 (1.1-1.5); ALKALINE PHOSPHATASE 53 IU/L (46-116); ASPARTATE AMINO TRANSFERASE 30 U/L (10-37); BILIRUBIN,TOTAL 0.3 MG/DL (0.1-1.0); MAGNESIUM 2.2 MG/DL (1.5-2.4)
[2017-12-29] MEDS: K and/or MAG REPLACEMENT MC SCH (07:44)
[2017-12-29] MEDS ORDERED: spironolactone 25 MG tablet PO SCH (08:00)
[2017-12-29] MEDS ORDERED: FLUoxetine 20mg capsule PO SCH (08:00)
[2017-12-29] MEDS ORDERED: furosemide 40mg tablet PO SCH (08:00)
[2017-12-29] MEDS: levoTHYROXINE 100mcg tablet PO SCH (09:18)
[2017-12-29] MEDS: carvedilol 6.25mg tablet PO SCH (09:19)
[2017-12-29] MEDS: digoxin 250mcg (0.25mg) tablet PO SCH (09:19)
[2017-12-29] MEDS: amiodarone 200mg tablet PO SCH (09:20)
[2017-12-29] MEDS: traMADol 50MG tablet PO SCH (09:23)
[2017-12-29 11:00] VITALS: BP 96/64
[2017-12-29] MEDS: prednisone 10mg tablet PO SCH (11:31)
[2017-12-29] MEDS: LORazepam 0.5 MG tablet PO PRN (11:31)
[2017-12-29] MEDS: sacubitril/valsartan 24mg-26mg tablet PO SCH (11:32)
[2017-12-29] MEDS ORDERED: AMIO200T40 PO (11:41)
[2017-12-29] MEDS ORDERED: DIGO-27 PO (11:41)
[2017-12-29] MEDS ORDERED: CARV6.253 PO (11:41)
== END 2017-12-29 12:50 | disposition home or self-care (01) | DRG 309 ==
LOC: ER 17:45 → ED HOLD 19:57 → PCU 3S 21:12
PROVIDERS: ADMIT Internal Medicine; ATTEND Hospitalist
PROC: 5A2204Z Restoration of Cardiac Rhythm, Single (ICD-10-PCS; principal; 2017-12-27)
PROC: 4B02XTZ Measurement of Cardiac Defibrillator, External Approach (ICD-10-PCS; 2017-12-28)
DX: I48.0 Paroxysmal atrial fibrillation (principal); I50.22 Chronic systolic (congestive) heart failure; I42.9 Cardiomyopathy, unspecified; E83.42 Hypomagnesemia; J44.9 Chronic obstructive pulmonary disease, unspecified; K21.9 Gastro-esophageal reflux disease without esophagitis; E87.6 Hypokalemia; F32.9 Major depressive disorder, single episode, unspecified; F41.9 Anxiety disorder, unspecified; G89.4 Chronic pain syndrome; I25.10 Atherosclerotic heart disease of native coronary artery without angina pectoris; Z90.49 Acquired absence of other specified parts of digestive tract; Z95.810 Presence of automatic (implantable) cardiac defibrillator; Z88.5 Allergy status to narcotic agent; Z91.018 Allergy to other foods; Z79.899 Other long term (current) drug therapy; Z79.01 Long term (current) use of anticoagulants; Z85.3 Personal history of malignant neoplasm of breast; Z82.3 Family history of stroke; Z84.89 Family history of other specified conditions
CPT/HCPCS: 36415; 71045; 80053; 83735; 84100; 84484; 85025; 85610; 85730; 87070; 93005; G0378; J0282; J3480; J3490; J7512

== ENCOUNTER 2018-05-13 14:39 | Emergency (ER) | payer MEDICARE, OTHER ==
[~2018-05-13] VITALS: Ht 160 cm; Wt 61.8 kg
[~2018-05-13 14:39] MED LIST changes: +AMIO200T40 PO; -CARV3.122 PO; +CARV6.253 PO; +DIGO-27 PO; -FURO-150 PO; +FURO40TA4 PO; -HYDR-3965 PO; +HYDR-4383 PO; +LACT10SO PO; -LEVO500T2 PO; +ONDA4TAB9 SL; -POTA10TA19 PO; -PRAV40TA PO; +PRAV40TA3 PO; -PRED10TA23 PO; +SACU1TAB PO; +SPIR25TA5 PO; -TRAZ-219 PO; -etomidate 2mg/ml inj. ONE
[2018-05-13 15:31] LABS: BASOPHILS # (AUTO) 0.1 X10'3 (0-0.2); BASOPHILS % (AUTO) 0.5 % (0-1); EOSINOPHILS # (AUTO) 0.1 X10'3 (0-0.9); EOSINOPHILS % (AUTO) 0.6 % (0-6); HEMATOCRIT 42.5 % (35.0-45.0); HEMOGLOBIN 13.8 g/dl (12.0-16.0); LYMPHOCYTES # (AUTO) 2.8 X10'3 (1.1-4.8); LYMPHOCYTES % (AUTO) 22.9 % (21-51); MEAN CORPUSCULAR HEMOGLOBIN 30.3 PG (27.0-31.0); MEAN CORPUSCULAR HGB CONC 32.6 g/dL (33.0-36.5); MEAN CORPUSCULAR VOLUME 92.9 FL (78-98); MEAN PLATELET VOLUME 8.2 FL (7.4-10.4); MONOCYTES % (AUTO) 7.9 % (2-12); NEUTROPHILS # (AUTO) 8.3 X10'3 (1.8-7.7); NEUTROPHILS % (AUTO) 68.1 % (42-75); PLATELET COUNT 192 X10'3 (140-440); RED BLOOD COUNT 4.57 X10'6 (4.20-5.60); RED CELL DISTRIBUTION WIDTH 14.5 % (11.5-14.5); WHITE BLOOD COUNT 12.1 X10'3 (4.5-11.0)
[2018-05-13 15:47] LABS: ALANINE AMINOTRANSFERASE 27 U/L (12-78); ALBUMIN 4.1 G/DL (3.4-5.0); ALBUMIN/GLOBULIN RATIO 1.3 (1.1-1.5); ALKALINE PHOSPHATASE 58 IU/L (46-116); ANION GAP 12 (8-16); ASPARTATE AMINO TRANSFERASE 27 U/L (10-37); BILIRUBIN,TOTAL 0.4 MG/DL (0.1-1.0); BLOOD UREA NITROGEN 18 MG/DL (7-18); BUN/CREATININE RATIO 24.3 (6.6-38.0); CALCIUM 9.6 MG/DL (8.5-10.1); CHLORIDE 101 MMOL/L (99-107); CREATININE 0.74 MG/DL (0.40-0.90); GLUCOSE 102 MG/DL (70-104); LIPASE 101 U/L (73-393); POTASSIUM 3.7 MMOL/L (3.5-5.1); SODIUM 139 MMOL/L (135-145); TOTAL CARBON DIOXIDE 25.7 MMOL/L (24-32); TOTAL PROTEIN 7.3 G/DL (6.4-8.2); eGFR 79 ML/MIN
[2018-05-13] MEDS ORDERED: dexamethasone sod phosphate 10mg/ml inj IV STA (16:58)
[2018-05-13] MEDS ORDERED: normal saline 1000ML IV soln IVB ONE (17:00)
[2018-05-13 17:32] LABS: CLARITY,URINE CLEAR (Clear); COLOR,URINE YELLOW (Yellow); GLUCOSE, URINE NEGATIVE (Neg); KETONES,URINE 15 mg/dl (Neg); LEUKOCYTE ESTERASE ,URINE NEGATIVE (Neg); NITRITES, URINE NEGATIVE (Neg); OCCULT BLOOD,URINE NEGATIVE (Neg); PH,URINE 5.5 (4.8-8.0); PROTEIN,URINE NEGATIVE (Neg); UROBILINOGEN,URINE 0.2 E.U/dL (0.2-1.0)
[2018-05-13 17:33] LABS: UA COLLECTION TYPE CLN CATCH MIDSTREAM; URINE HCG NEGATIVE (NEG)
[2018-05-13 19:01] LABS: INR 1.1 INR; PROTHROMBIN TIME 11.2 SECONDS (9.0-12.0)
[2018-05-13] MEDS ORDERED: morphine 4 MG/ML inj SYRINge IV ONE (19:15)
[2018-05-13 19:25] VITALS: BP 138/62
== END 2018-05-13 19:26 | disposition home or self-care (01) ==
LOC: ER 14:39
DX: R10.84 Generalized abdominal pain (principal); R11.2 Nausea with vomiting, unspecified; I50.9 Heart failure, unspecified; I48.91 Unspecified atrial fibrillation; J45.909 Unspecified asthma, uncomplicated; Z90.49 Acquired absence of other specified parts of digestive tract; Z95.0 Presence of cardiac pacemaker; Z88.8 Allergy status to other drugs, medicaments and biological substances
CPT/HCPCS: 36415; 80053; 81003; 81025; 83690; 85025; 85610; 86140; 96374; 96375; 99283; J1100; J2270; J7030

== ENCOUNTER 2018-09-18 07:29 | Emergency (ER) | payer MEDICARE, BC ==
[~2018-09-18] VITALS: Ht 160 cm; Wt 56.0 kg
[~2018-09-18 07:29] MED LIST changes: -AMIO200T40 PO; +AMIO200T61 PO
[2018-09-18 07:49] VITALS: BP 91/73
[2018-09-18] MEDS ORDERED: normal saline 1000ML IV soln IVB ONE (08:00)
[2018-09-18] MEDS ORDERED: ondansetron/PF 4mg/2ml inj IV ONE (08:10)
[2018-09-18] MEDS ORDERED: ondansetron 4mg rapidly disintigrating tab PO ONE (08:15)
[2018-09-18 08:18] LABS: BASOPHILS # (AUTO) 0.1 X10'3 (0-0.2); BASOPHILS % (AUTO) 0.5 % (0-1); EOSINOPHILS # (AUTO) 0.1 X10'3 (0-0.9); EOSINOPHILS % (AUTO) 0.8 % (0-6); HEMATOCRIT 42.9 % (35.0-45.0); HEMOGLOBIN 14.4 g/dl (12.0-16.0); LYMPHOCYTES # (AUTO) 2.2 X10'3 (1.1-4.8); LYMPHOCYTES % (AUTO) 20.2 % (21-51); MEAN CORPUSCULAR HEMOGLOBIN 30.8 PG (27.0-31.0); MEAN CORPUSCULAR HGB CONC 33.5 g/dL (33.0-36.5); MEAN CORPUSCULAR VOLUME 91.9 FL (78-98); MEAN PLATELET VOLUME 7.8 FL (7.4-10.4); MONOCYTES % (AUTO) 8.9 % (2-12); NEUTROPHILS # (AUTO) 7.5 X10'3 (1.8-7.7); NEUTROPHILS % (AUTO) 69.6 % (42-75); PLATELET COUNT 225 X10'3 (140-440); RED BLOOD COUNT 4.66 X10'6 (4.20-5.60); WHITE BLOOD COUNT 10.8 X10'3 (4.5-11.0)
[2018-09-18 08:33] LABS: ALANINE AMINOTRANSFERASE 25 U/L (12-78); ALBUMIN 3.9 G/DL (3.4-5.0); ALBUMIN/GLOBULIN RATIO 1.1 (1.1-1.5); ALKALINE PHOSPHATASE 63 IU/L (46-116); ANION GAP 10 (8-16); ASPARTATE AMINO TRANSFERASE 16 U/L (10-37); BILIRUBIN,TOTAL 0.6 MG/DL (0.1-1.0); BLOOD UREA NITROGEN 24 MG/DL (7-18); BUN/CREATININE RATIO 22.2 (6.6-38.0); CALCIUM 9.7 MG/DL (8.5-10.1); CHLORIDE 99 MMOL/L (99-107); CREATININE 1.08 MG/DL (0.40-0.90); GLUCOSE 115 MG/DL (70-104); POTASSIUM 3.1 MMOL/L (3.5-5.1); SODIUM 137 MMOL/L (135-145); TOTAL CARBON DIOXIDE 27.6 MMOL/L (24-32); TOTAL PROTEIN 7.4 G/DL (6.4-8.2); eGFR 51 ML/MIN
[2018-09-18 08:36] LABS: PARTIAL THROMBOPLASTIN TIME 43 SECONDS (22-32)
[2018-09-18] MEDS ORDERED: potassium chloride 10mEq CAPSULE.SA PO STA (09:02)
[2018-09-18] MEDS ORDERED: potassium Cl 20 mEq SR tablet PO STA (09:07)
[2018-09-18] MEDS ORDERED: FLUT16SP2 BOTHNARES (09:20)
[2018-09-18] MEDS ORDERED: AMOX-580 PO (09:20)
== END 2018-09-18 09:41 | disposition home or self-care (01) ==
LOC: ER 07:30
DX: J32.9 Chronic sinusitis, unspecified (principal); E87.6 Hypokalemia; R11.2 Nausea with vomiting, unspecified; R07.89 Other chest pain; I48.91 Unspecified atrial fibrillation; I50.9 Heart failure, unspecified; J45.909 Unspecified asthma, uncomplicated; Z86.14 Personal history of Methicillin resistant Staphylococcus aureus infection; Z85.3 Personal history of malignant neoplasm of breast; Z98.890 Other specified postprocedural states; Z90.49 Acquired absence of other specified parts of digestive tract; Z95.0 Presence of cardiac pacemaker; Z88.5 Allergy status to narcotic agent; Z79.899 Other long term (current) drug therapy
CPT/HCPCS: 36415; 71045; 80053; 83880; 84484; 85025; 85610; 85730; 93005; 96374; 99284; J2405; J7040

== ENCOUNTER 2018-10-03 11:05 | Emergency (ER) | payer MEDICARE, BC ==
[~2018-10-03] VITALS: Ht 160 cm; Wt 57.3 kg
[~2018-10-03 11:05] MED LIST changes: +FLUT16SP2 BOTHNARES
[2018-10-03 12:04] LABS: BASOPHILS # (AUTO) 0.1 X10'3 (0-0.2); BASOPHILS % (AUTO) 0.5 % (0-1); EOSINOPHILS # (AUTO) 0.1 X10'3 (0-0.9); EOSINOPHILS % (AUTO) 1.2 % (0-6); HEMATOCRIT 38.3 % (35.0-45.0); HEMOGLOBIN 12.8 g/dl (12.0-16.0); LYMPHOCYTES # (AUTO) 2.6 X10'3 (1.1-4.8); LYMPHOCYTES % (AUTO) 22.4 % (21-51); MEAN CORPUSCULAR HGB CONC 33.5 g/dL (33.0-36.5); MEAN CORPUSCULAR VOLUME 92.4 FL (78-98); MEAN PLATELET VOLUME 7.4 FL (7.4-10.4); NEUTROPHILS # (AUTO) 7.7 X10'3 (1.8-7.7); NEUTROPHILS % (AUTO) 66.9 % (42-75); PLATELET COUNT 199 X10'3 (140-440); RED BLOOD COUNT 4.14 X10'6 (4.20-5.60); RED CELL DISTRIBUTION WIDTH 13.9 % (11.5-14.5); WHITE BLOOD COUNT 11.5 X10'3 (4.5-11.0)
[2018-10-03 12:14] LABS: ALANINE AMINOTRANSFERASE 28 U/L (12-78); ALBUMIN 3.4 G/DL (3.4-5.0); ALBUMIN/GLOBULIN RATIO 1.1 (1.1-1.5); ALKALINE PHOSPHATASE 51 IU/L (46-116); ANION GAP 7 (8-16); ASPARTATE AMINO TRANSFERASE 17 U/L (10-37); BILIRUBIN,TOTAL 0.4 MG/DL (0.1-1.0); BLOOD UREA NITROGEN 19 MG/DL (7-18); BUN/CREATININE RATIO 27.9 (6.6-38.0); CALCIUM 9.4 MG/DL (8.5-10.1); CHLORIDE 105 MMOL/L (99-107); CREATININE 0.68 MG/DL (0.40-0.90); GLUCOSE 95 MG/DL (70-104); POTASSIUM 3.8 MMOL/L (3.5-5.1); SODIUM 142 MMOL/L (135-145); TOTAL CARBON DIOXIDE 29.7 MMOL/L (24-32); TOTAL PROTEIN 6.6 G/DL (6.4-8.2); eGFR 87 ML/MIN
[2018-10-03 12:31] LABS: CLARITY,URINE CLEAR (Clear); COLOR,URINE YELLOW (Yellow); GLUCOSE, URINE NEGATIVE (Neg); KETONES,URINE NEGATIVE (Neg); LEUKOCYTE ESTERASE ,URINE NEGATIVE (Neg); NITRITES, URINE NEGATIVE (Neg); OCCULT BLOOD,URINE NEGATIVE (Neg); PROTEIN,URINE NEGATIVE (Neg); UROBILINOGEN,URINE 0.2 E.U/dL (0.2-1.0)
[2018-10-03 12:34] LABS: UA COLLECTION TYPE CLN CATCH MIDSTREAM
[2018-10-03 12:41] VITALS: BP 95/54
== END 2018-10-03 12:43 | disposition home or self-care (01) ==
LOC: ER 11:06
DX: E87.6 Hypokalemia (principal); I48.91 Unspecified atrial fibrillation; J45.909 Unspecified asthma, uncomplicated; Z86.14 Personal history of Methicillin resistant Staphylococcus aureus infection; Z85.3 Personal history of malignant neoplasm of breast; Z90.49 Acquired absence of other specified parts of digestive tract; Z98.890 Other specified postprocedural states; Z95.0 Presence of cardiac pacemaker; Z88.5 Allergy status to narcotic agent; Z79.899 Other long term (current) drug therapy
CPT/HCPCS: 36415; 80053; 81003; 85025; 93005; 99284

== ENCOUNTER 2019-08-06 16:23 | Inpatient (IN) | payer MEDICARE, BC ==
[~2019-08-06] VITALS: Ht 160 cm; Wt 70.0 kg
[2019-08-06 18:23] LABS: BASOPHILS % (AUTO) 0.4 % (0-1); EOSINOPHILS # (AUTO) 0.2 X10'3 (0-0.9); EOSINOPHILS % (AUTO) 1.6 % (0-6); HEMATOCRIT 37.6 % (35.0-45.0); HEMOGLOBIN 12.4 g/dl (12.0-16.0); LYMPHOCYTES # (AUTO) 3.9 X10'3 (1.1-4.8); LYMPHOCYTES % (AUTO) 35.3 % (21-51); MEAN CORPUSCULAR HEMOGLOBIN 30.6 PG (27.0-31.0); MEAN CORPUSCULAR HGB CONC 33.1 g/dL (33.0-36.5); MEAN CORPUSCULAR VOLUME 92.3 FL (78-98); MEAN PLATELET VOLUME 7.4 FL (7.4-10.4); MONOCYTES % (AUTO) 9.3 % (2-12); NEUTROPHILS # (AUTO) 5.8 X10'3 (1.8-7.7); NEUTROPHILS % (AUTO) 53.4 % (42-75); PLATELET COUNT 188 X10'3 (140-440); RED BLOOD COUNT 4.07 X10'6 (4.20-5.60); RED CELL DISTRIBUTION WIDTH 14.3 % (11.5-14.5)
[2019-08-06] MEDS ORDERED: CARV3.122 PO (18:37)
[2019-08-06] MEDS ORDERED: APIX5TAB3 PO (18:37)
[2019-08-06] MEDS ORDERED: LEVO88TA7 PO (18:42)
[2019-08-06] MEDS ORDERED: AMIO200T61 PO (18:42)
[2019-08-06] MEDS ORDERED: CHOL10006 PO (18:42)
[2019-08-06] MEDS ORDERED: DIPH25CA83 PO (18:42)
[2019-08-06] MEDS ORDERED: DIGO125T2 PO (18:42)
[2019-08-06] MEDS ORDERED: PANT40TA4 PO (18:42)
[2019-08-06] MEDS ORDERED: FERR-116 PO (18:42)
[2019-08-06] MEDS ORDERED: TRAZ-256 PO (18:42)
[2019-08-06 18:43] LABS: ALANINE AMINOTRANSFERASE 21 U/L (12-78); ALBUMIN 3.8 G/DL (3.4-5.0); ALBUMIN/GLOBULIN RATIO 1.2 (1.1-1.5); ALKALINE PHOSPHATASE 59 IU/L (46-116); ANION GAP 7 (8-16); ASPARTATE AMINO TRANSFERASE 23 U/L (10-37); BILIRUBIN,TOTAL 0.3 MG/DL (0.1-1.0); BLOOD UREA NITROGEN 10 MG/DL (7-18); BUN/CREATININE RATIO 10.9 (6.6-38.0); CALCIUM 9.2 MG/DL (8.5-10.1); CHLORIDE 106 MMOL/L (99-107); CREATININE 0.92 MG/DL (0.40-0.90); GLUCOSE 96 MG/DL (70-104); LIPASE 106 U/L (73-393); SODIUM 141 MMOL/L (135-145); TOTAL CARBON DIOXIDE 27.6 MMOL/L (24-32); TOTAL PROTEIN 6.9 G/DL (6.4-8.2); eGFR 61 ML/MIN
[2019-08-06] MEDS ORDERED: ondansetron/PF 4mg/2ml inj IV ONE ×2 (18:55→20:55)
[2019-08-06] MEDS ORDERED: morphine 4 MG/ML inj SYRINge IV ONE (18:55)
[2019-08-06] MEDS ORDERED: morphine 10mg/ml inj. IV ONE ×2 (19:00→20:25)
[2019-08-06] MEDS ORDERED: iohexol 300mg/ml 100ml inj. ONE (19:05)
[2019-08-06] MEDS ORDERED: LIDOcaine 2% 10ml TOPICAL JELLY (Urojet) MM ONE (20:50)
[2019-08-06] MEDS ORDERED: fentaNYL/PF 50MCG/1 ML 2ML syringe IV ONE (20:50)
[2019-08-06] MEDS ORDERED: metroNIDAZOLE-Flagyl 500mg/NS 100 ML IV ONE (21:20)
[2019-08-06] MEDS ORDERED: CefTRIAXone/D5W-Rocephin 1gm 50 ML IV ONE (21:20)
[2019-08-06] MEDS: normal saline 1000ml 1,000 ML IV SCH (21:54)
[2019-08-06] MEDS ORDERED: potassium CL 10mEq/100ml bag 100 ML IV PRN ×2 (21:55)
[2019-08-06] MEDS ORDERED: morphine 2 MG/ML inj. syringe IV PRN (21:55)
[2019-08-06] MEDS ORDERED: ADAL40PE SUBCUT (22:01)
[2019-08-06] MEDS ORDERED: digoxin 250mcg/ml 2ml ampule IV ONE (22:05)
[2019-08-06] MEDS ORDERED: amiodarone 50MG/ML inj IV ONE (22:05)
[2019-08-06] MEDS ORDERED: amiodarone 150mg/dext, iso-os 100 ML IV ONE (22:15)
--- NOTE | 2019-08-06 22:55 | NUR ---
Patient in room ED 7. I have received report from GERMAINE Martinez in ER and had the opportunity to ask questions and assume patient care.
--- NOTE | 2019-08-06 23:30 | NUR ---
Arrived @2330 to [facility] 2553O Patient walked from [facility] to bed. slow but steady gait. Vital signs were stable and entered in. A&Ox4 Educated on MRSA swab and tele monitoring. Oriented to the room and calll light. Questions answered and encouraged.
[2019-08-06 23:35] VITALS: BP 132/65
--- NOTE | 2019-08-07 00:29 | NUR ---
MD called and notified for patient requesting temazepam because it has worked well in the past for sleep. New order was put in for Temazepam 15mg PO qHS
[2019-08-07] MEDS ORDERED: temazepam 15mg capsule PO PRN (00:30)
[2019-08-07 02:00] VITALS: BP 128/66
[2019-08-07] MEDS: morphine 2 MG/ML inj. syringe IV PRN ×3 (02:37→12:28)
[2019-08-07 06:00] VITALS: BP 94/56
--- NOTE | 2019-08-07 06:12 | NUR ---
Problems reprioritized. Patient report given, questions answered & plan of care reviewed with GERMAINE Avalos.
--- NOTE | 2019-08-07 06:15 | NUR ---
Patient in room PCU 3011X. I have received report from Dara HERRON and had the opportunity to ask questions and assume patient care. Patient laying in bed, eyes closed, no signs of distress. NG tube to low intermittent suction.
[2019-08-07 06:30] LABS: BASOPHILS % (AUTO) 0.3 % (0-1); EOSINOPHILS # (AUTO) 0.1 X10'3 (0-0.9); HEMATOCRIT 34.4 % (35.0-45.0); HEMOGLOBIN 11.4 g/dl (12.0-16.0); LYMPHOCYTES # (AUTO) 1.7 X10'3 (1.1-4.8); LYMPHOCYTES % (AUTO) 33.9 % (21-51); MEAN CORPUSCULAR HEMOGLOBIN 30.8 PG (27.0-31.0); MEAN CORPUSCULAR VOLUME 93.3 FL (78-98); MEAN PLATELET VOLUME 7.9 FL (7.4-10.4); MONOCYTES # (AUTO) 0.6 X10'3 (0-0.9); MONOCYTES % (AUTO) 11.8 % (2-12); NEUTROPHILS # (AUTO) 2.7 X10'3 (1.8-7.7); PLATELET COUNT 147 X10'3 (140-440); RED BLOOD COUNT 3.68 X10'6 (4.20-5.60); RED CELL DISTRIBUTION WIDTH 14.6 % (11.5-14.5); WHITE BLOOD COUNT 5.1 X10'3 (4.5-11.0)
[2019-08-07 07:02] LABS: ALANINE AMINOTRANSFERASE 423 U/L (12-78); ALBUMIN 3.2 G/DL (3.4-5.0); ALBUMIN/GLOBULIN RATIO 1.2 (1.1-1.5); ALKALINE PHOSPHATASE 161 IU/L (46-116); ANION GAP 8 (8-16); ASPARTATE AMINO TRANSFERASE 643 U/L (10-37); BILIRUBIN,TOTAL 0.4 MG/DL (0.1-1.0); BLOOD UREA NITROGEN 8 MG/DL (7-18); BUN/CREATININE RATIO 9.4 (6.6-38.0); CALCIUM 8.6 MG/DL (8.5-10.1); CHLORIDE 108 MMOL/L (99-107); CREATININE 0.85 MG/DL (0.40-0.90); GLUCOSE 87 MG/DL (70-104); SODIUM 144 MMOL/L (135-145); TOTAL PROTEIN 5.9 G/DL (6.4-8.2); eGFR 67 ML/MIN
[2019-08-07] MEDS: K and/or MAG REPLACEMENT MC SCH ×2 (08:00→19:54)
[2019-08-07] MEDS: pantoprazole 40 MG vial IV SCH (08:05)
[2019-08-07] MEDS: metroNIDAZOLE-Flagyl 500mg/NS 100 ML IV SCH ×3 (08:06→22:46)
[2019-08-07 11:00] VITALS: BP 110/60
[2019-08-07] MEDS: normal saline 1000ml 1,000 ML IV SCH (12:28)
[2019-08-07 15:00] VITALS: BP 104/58
[2019-08-07] MEDS: ondansetron/PF 4mg/2ml inj IV PRN ×2 (16:47→21:21)
--- NOTE | 2019-08-07 17:33 | NUR ---
PAGER ID: [phone] MESSAGE: Bailey keith [phone]. Andrew Farley 3016A. Pt requesting something other than morphine for pain. States takes Lawrence and Benadryl at home for pain. Has 8/10 headache and back pain. Please advise. Thanks!
[2019-08-07 18:00] VITALS: BP 109/60
--- NOTE | 2019-08-07 18:05 | NUR ---
Problems reprioritized. Patient report given, questions answered & plan of care reviewed with Dara HERRON.
--- NOTE | 2019-08-07 19:53 | NUR ---
called back. New order for Dilaudid entered . PAGER ID: [phone] MESSAGE: [id number], Miguelito Roe- pt is requesting something stronger than morphine for pain, MS ineffective, pt requesting phentenol because it worked in ER. [id number]
[2019-08-07] MEDS: HYDROmorphone 1 mg/ml syringe IV PRN (20:02)
[2019-08-07] MEDS: CefTRIAXone/D5W-Rocephin 1gm 50 ML IV SCH (20:04)
--- NOTE | 2019-08-07 20:13 | NUR ---
Patient requesting trazodone instead of temazepam. PAGER ID: [phone] MESSAGE: [id number] Miguelito Roe here for chrons flare up. requesting trazodone for sleep. Says she uses it every night at home. -Dara Whipple [phone]
[2019-08-07 22:00] VITALS: BP 113/59
[2019-08-07] MEDS: traZODone 50mg tablet PO SCH (22:46)
--- NOTE | 2019-08-08 00:18 | NUR ---
Patient in room PCU 3016. I have received report from GERMAINE Avalos and had the opportunity to ask questions and assume patient care.
[2019-08-08 02:00] VITALS: BP 103/60
[2019-08-08] MEDS: normal saline 1000ml 1,000 ML IV SCH ×2 (03:44→16:48)
[2019-08-08] MEDS: HYDROmorphone 1 mg/ml syringe IV PRN ×5 (03:46→19:26)
[2019-08-08 06:00] VITALS: BP 134/79
--- NOTE | 2019-08-08 06:08 | NUR ---
Problems reprioritized. Patient report given, questions answered & plan of care reviewed with GERMAINE Avalos.
--- NOTE | 2019-08-08 06:15 | NUR ---
Patient in room PCU 3016A. I have received report from Dara HERRON and had the opportunity to ask questions and assume patient care. Patient laying in bed, eyes closed, no signs of distress, NS @ 70mL/hr, NG to low intermittent suction. Will continue to monitor.
[2019-08-08 06:41] LABS: BASOPHILS % (AUTO) 0.3 % (0-1); EOSINOPHILS # (AUTO) 0.1 X10'3 (0-0.9); EOSINOPHILS % (AUTO) 2.1 % (0-6); HEMATOCRIT 31.1 % (35.0-45.0); HEMOGLOBIN 10.5 g/dl (12.0-16.0); LYMPHOCYTES # (AUTO) 2.1 X10'3 (1.1-4.8); LYMPHOCYTES % (AUTO) 36.1 % (21-51); MEAN CORPUSCULAR HEMOGLOBIN 31.7 PG (27.0-31.0); MEAN CORPUSCULAR HGB CONC 33.8 g/dL (33.0-36.5); MEAN PLATELET VOLUME 7.8 FL (7.4-10.4); MONOCYTES # (AUTO) 0.5 X10'3 (0-0.9); MONOCYTES % (AUTO) 8.6 % (2-12); NEUTROPHILS # (AUTO) 3.1 X10'3 (1.8-7.7); NEUTROPHILS % (AUTO) 52.9 % (42-75); PLATELET COUNT 138 X10'3 (140-440); RED CELL DISTRIBUTION WIDTH 14.4 % (11.5-14.5); WHITE BLOOD COUNT 5.8 X10'3 (4.5-11.0)
[2019-08-08 06:50] LABS: ALANINE AMINOTRANSFERASE 214 U/L (12-78); ALBUMIN 2.8 G/DL (3.4-5.0); ALKALINE PHOSPHATASE 123 IU/L (46-116); ANION GAP 6 (8-16); ASPARTATE AMINO TRANSFERASE 122 U/L (10-37); BILIRUBIN,TOTAL 0.3 MG/DL (0.1-1.0); BLOOD UREA NITROGEN 8 MG/DL (7-18); BUN/CREATININE RATIO 10.5 (6.6-38.0); CALCIUM 8.3 MG/DL (8.5-10.1); CHLORIDE 109 MMOL/L (99-107); CREATININE 0.76 MG/DL (0.40-0.90); GLUCOSE 83 MG/DL (70-104); POTASSIUM 3.6 MMOL/L (3.5-5.1); SODIUM 143 MMOL/L (135-145); TOTAL PROTEIN 5.5 G/DL (6.4-8.2); eGFR 76 ML/MIN
[2019-08-08] MEDS: K and/or MAG REPLACEMENT MC SCH ×2 (08:00→20:00)
[2019-08-08] MEDS: metroNIDAZOLE-Flagyl 500mg/NS 100 ML IV SCH ×2 (08:08→16:16)
[2019-08-08] MEDS: pantoprazole 40 MG vial IV SCH (08:08)
[2019-08-08] MEDS: ondansetron/PF 4mg/2ml inj IV PRN ×2 (08:08→14:33)
--- NOTE | 2019-08-08 09:17 | NUR ---
PAGER ID: [phone] MESSAGE: Bailey keith [phone]. RE Andrew Farley [id number]. Pt is on many home meds that were held due to NG tube, can we convert any to IV or sub? She is on Eliquis, digoxin, entresto, etc. Thanks!
--- NOTE | 2019-08-08 09:41 | NUR ---
Spoke with Dr. Nickerson, orders to clamp NG tube for 4 hours and then turn back on, if no output then we can remove NG and resume medications.
--- NOTE | 2019-08-08 09:45 | NUR ---
NG tube clamped, suction off at this time. Discussed with patient plan of care and understands. No complaints at this time.
--- NOTE | 2019-08-08 11:10 | NUR ---
NG tube back to suction, low intermittent suction at this time. Patient has no complaints, needs addressed at this time.
--- NOTE | 2019-08-08 14:45 | NUR ---
PAGER ID: [phone] MESSAGE: Bailey keith [phone]. RE Andrew Farley [id number]. Pt has mild output (10mL) from NG tube after restarting suction. No pain with ambulation. Do you want to continue NG tube?
[2019-08-08 15:00] VITALS: BP 114/60
[2019-08-08 18:00] VITALS: BP 123/67
--- NOTE | 2019-08-08 18:27 | NUR ---
Patient in room PCU 3016. I have received report from GERMAINE Avalos and had the opportunity to ask questions and assume patient care.
--- NOTE | 2019-08-08 18:47 | NUR ---
Problems reprioritized. Patient report given, questions answered & plan of care reviewed with Dara HERRON.
[2019-08-08] MEDS: LORazepam 2 mg/ml vial IV PRN (19:34)
[2019-08-08] MEDS: CefTRIAXone/D5W-Rocephin 1gm 50 ML IV SCH (20:29)
[2019-08-08] MEDS: traZODone 50mg tablet PO SCH (20:30)
[2019-08-09] MEDS: ondansetron/PF 4mg/2ml inj IV PRN ×2 (01:21→07:30)
[2019-08-09] MEDS: HYDROmorphone 1 mg/ml syringe IV PRN ×7 (01:22→23:56)
[2019-08-09] MEDS: normal saline 1000ml 1,000 ML IV SCH ×2 (01:31→23:47)
[2019-08-09] MEDS: metroNIDAZOLE-Flagyl 500mg/NS 100 ML IV SCH ×4 (01:51→23:47)
[2019-08-09] MEDS: methylPREDNISolone sod succ/PF 40mg inj. IV SCH ×4 (01:51→23:54)
[2019-08-09 02:00] VITALS: BP 120/72
[2019-08-09 06:00] VITALS: BP 114/61
--- NOTE | 2019-08-09 06:07 | NUR ---
Problems reprioritized. Patient report given, questions answered & plan of care reviewed with GERMAINE Avalos.
[2019-08-09 06:13] LABS: BASOPHILS % (AUTO) 0.2 % (0-1); EOSINOPHILS % (AUTO) 0.6 % (0-6); HEMATOCRIT 32.5 % (35.0-45.0); HEMOGLOBIN 10.7 g/dl (12.0-16.0); LYMPHOCYTES # (AUTO) 0.9 X10'3 (1.1-4.8); LYMPHOCYTES % (AUTO) 12.3 % (21-51); MEAN CORPUSCULAR HGB CONC 33.1 g/dL (33.0-36.5); MEAN CORPUSCULAR VOLUME 93.7 FL (78-98); MEAN PLATELET VOLUME 7.9 FL (7.4-10.4); MONOCYTES # (AUTO) 0.2 X10'3 (0-0.9); MONOCYTES % (AUTO) 2.7 % (2-12); NEUTROPHILS # (AUTO) 6.5 X10'3 (1.8-7.7); NEUTROPHILS % (AUTO) 84.2 % (42-75); PLATELET COUNT 136 X10'3 (140-440); RED BLOOD COUNT 3.47 X10'6 (4.20-5.60); RED CELL DISTRIBUTION WIDTH 13.7 % (11.5-14.5); WHITE BLOOD COUNT 7.7 X10'3 (4.5-11.0)
--- NOTE | 2019-08-09 06:20 | NUR ---
Patient in room PCU 3016A. I have received report from Dara HERRON and had the opportunity to ask questions and assume patient care.
[2019-08-09 06:37] LABS: ALANINE AMINOTRANSFERASE 149 U/L (12-78); ALBUMIN 3.2 G/DL (3.4-5.0); ALBUMIN/GLOBULIN RATIO 1.2 (1.1-1.5); ALKALINE PHOSPHATASE 112 IU/L (46-116); ANION GAP 11 (8-16); ASPARTATE AMINO TRANSFERASE 58 U/L (10-37); BILIRUBIN,TOTAL 0.3 MG/DL (0.1-1.0); BLOOD UREA NITROGEN 10 MG/DL (7-18); BUN/CREATININE RATIO 14.5 (6.6-38.0); CALCIUM 8.6 MG/DL (8.5-10.1); CHLORIDE 108 MMOL/L (99-107); CREATININE 0.69 MG/DL (0.40-0.90); GLUCOSE 79 MG/DL (70-104); SODIUM 143 MMOL/L (135-145); TOTAL CARBON DIOXIDE 23.9 MMOL/L (24-32); TOTAL PROTEIN 5.9 G/DL (6.4-8.2); eGFR 85 ML/MIN
[2019-08-09 06:40] LABS: HEMOGLOBIN A1C 5.4 % (4.5-6.2)
[2019-08-09] MEDS: pantoprazole 40 MG vial IV SCH (07:30)
[2019-08-09] MEDS: K and/or MAG REPLACEMENT MC SCH ×2 (08:00→20:00)
[2019-08-09 11:00] VITALS: BP 119/58
--- NOTE | 2019-08-09 11:16 | NUR ---
PAGER ID: [phone] MESSAGE: Bailey keith [phone]. RE Andrew Farley [id number]. Per Dr. Ramirez note yesterday, pt needs abdominal X-ray. None was ordered. Do you want to order a KUB? Thanks!
[2019-08-09] MEDS: LORazepam 2 mg/ml vial IV PRN ×2 (12:14→21:56)
--- NOTE | 2019-08-09 14:23 | NUR ---
PAGER ID: [phone] MESSAGE: Bailey keith [phone]. RE Andrew Farley 3016A. KUB taken, shows nonspecific bowel gas pattern. Please review and advise. Thanks!
[2019-08-09 15:00] VITALS: BP 113/57
[2019-08-09 18:00] VITALS: BP 100/62
--- NOTE | 2019-08-09 18:20 | NUR ---
Problems reprioritized. Patient report given, questions answered & plan of care reviewed with Henry HERRON.
--- NOTE | 2019-08-09 18:37 | NUR ---
TPN consult. Spoke with RN. Pt refusing PICC. TPN to be cancelled. Per RN no NG output. Hopeful diet advancement soon? Pt admitted with crohn's flair up. Pt presented to ED with c/o abdominal pain for three weeks with n/v/"clear runny diarrhea", and constipation, dx with crohn's three years ago. per H&P her PCP recommended BRAT diet which she reports helps somewhat. Takes humira, vitamin D. CT shows thickening of terminal ileum, dilated fluid filled loops of small bowel suggesting ileus or SBO per H&P. Is NPO with NGT for suction. Patient seen at bedside and given written Crohn's education handout with verbal review. Discussed foods to eat when not having flair up and foods to avoid when with a flair up, discussed adding fiber foods back into diet slowly and one at a time, provided with written list of foods to eat to help thicken stool. provided with RD contact info. Recommend: 1. advance diet as medically indicated to low residue 2. wt per rx Addendum: 08/09/19 at [address] Amended: Links added.
[2019-08-09] MEDS: lactobacillus rhamnosus 10,000 MMU CELLS/CAPSULE PO SCH (20:27)
[2019-08-09] MEDS: CefTRIAXone/D5W-Rocephin 1gm 50 ML IV SCH (20:28)
[2019-08-09] MEDS: traZODone 50mg tablet PO SCH (20:28)
[2019-08-09 22:00] VITALS: BP 107/52
[2019-08-10 02:00] VITALS: BP 101/59
[2019-08-10] MEDS: LORazepam 2 mg/ml vial IV PRN ×4 (03:01→20:26)
[2019-08-10] MEDS: HYDROmorphone 1 mg/ml syringe IV PRN ×3 (03:02→21:35)
[2019-08-10 05:45] LABS: BASOPHILS % (AUTO) 0.1 % (0-1); EOSINOPHILS % (AUTO) 0 % (0-6); HEMOGLOBIN 10.6 g/dl (12.0-16.0); LYMPHOCYTES # (AUTO) 1.3 X10'3 (1.1-4.8); LYMPHOCYTES % (AUTO) 16.3 % (21-51); MEAN CORPUSCULAR HGB CONC 33.2 g/dL (33.0-36.5); MEAN CORPUSCULAR VOLUME 93.2 FL (78-98); MEAN PLATELET VOLUME 8.1 FL (7.4-10.4); MONOCYTES # (AUTO) 0.3 X10'3 (0-0.9); MONOCYTES % (AUTO) 3.7 % (2-12); NEUTROPHILS # (AUTO) 6.5 X10'3 (1.8-7.7); NEUTROPHILS % (AUTO) 79.9 % (42-75); PLATELET COUNT 153 X10'3 (140-440); RED BLOOD COUNT 3.43 X10'6 (4.20-5.60); RED CELL DISTRIBUTION WIDTH 13.9 % (11.5-14.5); WHITE BLOOD COUNT 8.1 X10'3 (4.5-11.0)
[2019-08-10 06:00] VITALS: BP 126/67
[2019-08-10 06:19] LABS: ALANINE AMINOTRANSFERASE 121 U/L (12-78); ALBUMIN 3.2 G/DL (3.4-5.0); ALBUMIN/GLOBULIN RATIO 1.1 (1.1-1.5); ALKALINE PHOSPHATASE 101 IU/L (46-116); ANION GAP 12 (8-16); ASPARTATE AMINO TRANSFERASE 35 U/L (10-37); BILIRUBIN,TOTAL 0.3 MG/DL (0.1-1.0); BLOOD UREA NITROGEN 11 MG/DL (7-18); BUN/CREATININE RATIO 16.9 (6.6-38.0); CALCIUM 9.2 MG/DL (8.5-10.1); CHLORIDE 109 MMOL/L (99-107); CREATININE 0.65 MG/DL (0.40-0.90); GLUCOSE 126 MG/DL (70-104); POTASSIUM 4.4 MMOL/L (3.5-5.1); SODIUM 143 MMOL/L (135-145); TOTAL CARBON DIOXIDE 22.5 MMOL/L (24-32); TOTAL PROTEIN 6.2 G/DL (6.4-8.2); eGFR > 90 ML/MIN
[2019-08-10] MEDS: pantoprazole 40 MG vial IV SCH (07:34)
[2019-08-10] MEDS: lactobacillus rhamnosus 10,000 MMU CELLS/CAPSULE PO SCH ×2 (07:35→20:22)
[2019-08-10] MEDS: methylPREDNISolone sod succ/PF 40mg inj. IV SCH ×3 (07:35→23:18)
[2019-08-10] MEDS: metroNIDAZOLE-Flagyl 500mg/NS 100 ML IV SCH ×3 (07:35→23:18)
[2019-08-10] MEDS: K and/or MAG REPLACEMENT MC SCH ×2 (08:00→20:00)
[2019-08-10] MEDS: HYDROmorphone inj. 0.5 MG/0.5 ML DISP.SYRIN IV PRN (08:08)
[2019-08-10 11:00] VITALS: BP 140/78
[2019-08-10] MEDS: normal saline 1000ml 1,000 ML IV SCH ×2 (11:42→23:19)
[2019-08-10 15:00] VITALS: BP 132/74
--- NOTE | 2019-08-10 17:30 | NUR ---
PAGER ID: [phone] MESSAGE: [id number] Miguelito clear liquids? no n/v post dc N/G Patrica [phone]
[2019-08-10 18:00] VITALS: BP 133/78
--- NOTE | 2019-08-10 18:46 | NUR ---
Report to noc RN
[2019-08-10] MEDS: CefTRIAXone/D5W-Rocephin 1gm 50 ML IV SCH (20:22)
[2019-08-10] MEDS: traZODone 50mg tablet PO SCH (20:22)
[2019-08-10 23:44] VITALS: BP 126/74
[2019-08-11] MEDS: HYDROmorphone 1 mg/ml syringe IV PRN ×5 (04:41→21:10)
[2019-08-11 06:00] VITALS: BP 119/73
[2019-08-11 06:15] LABS: BASOPHILS % (AUTO) 0.1 % (0-1); EOSINOPHILS % (AUTO) 0 % (0-6); HEMATOCRIT 32.4 % (35.0-45.0); HEMOGLOBIN 10.7 g/dl (12.0-16.0); LYMPHOCYTES # (AUTO) 1.1 X10'3 (1.1-4.8); MEAN CORPUSCULAR HGB CONC 33.1 g/dL (33.0-36.5); MEAN CORPUSCULAR VOLUME 93.6 FL (78-98); MEAN PLATELET VOLUME 8.2 FL (7.4-10.4); MONOCYTES # (AUTO) 0.3 X10'3 (0-0.9); MONOCYTES % (AUTO) 3.7 % (2-12); NEUTROPHILS # (AUTO) 5.5 X10'3 (1.8-7.7); NEUTROPHILS % (AUTO) 80.2 % (42-75); PLATELET COUNT 176 X10'3 (140-440); RED BLOOD COUNT 3.46 X10'6 (4.20-5.60); WHITE BLOOD COUNT 6.9 X10'3 (4.5-11.0)
--- NOTE | 2019-08-11 06:30 | NUR ---
Patient in room PCU 3016. I have received report from GERMAINE HECK and had the opportunity to ask questions and assume patient care.
--- NOTE | 2019-08-11 06:34 | NUR ---
Problems reprioritized. Patient report given, questions answered & plan of care reviewed with GERMAINE Montez.
[2019-08-11 06:38] LABS: ALANINE AMINOTRANSFERASE 87 U/L (12-78); ALBUMIN 3.2 G/DL (3.4-5.0); ALBUMIN/GLOBULIN RATIO 1.1 (1.1-1.5); ALKALINE PHOSPHATASE 88 IU/L (46-116); ANION GAP 8 (8-16); ASPARTATE AMINO TRANSFERASE 23 U/L (10-37); BILIRUBIN,TOTAL 0.2 MG/DL (0.1-1.0); BLOOD UREA NITROGEN 10 MG/DL (7-18); BUN/CREATININE RATIO 15.2 (6.6-38.0); CHLORIDE 110 MMOL/L (99-107); CREATININE 0.66 MG/DL (0.40-0.90); GLUCOSE 135 MG/DL (70-104); POTASSIUM 3.8 MMOL/L (3.5-5.1); SODIUM 146 MMOL/L (135-145); TOTAL CARBON DIOXIDE 27.7 MMOL/L (24-32); eGFR 90 ML/MIN
[2019-08-11] MEDS: K and/or MAG REPLACEMENT MC SCH ×2 (08:00→20:00)
[2019-08-11] MEDS: metroNIDAZOLE-Flagyl 500mg/NS 100 ML IV SCH (08:22)
[2019-08-11] MEDS: lactobacillus rhamnosus 10,000 MMU CELLS/CAPSULE PO SCH ×2 (08:24→20:17)
[2019-08-11] MEDS: methylPREDNISolone sod succ/PF 40mg inj. IV SCH ×2 (08:24→16:32)
[2019-08-11] MEDS: pantoprazole 40 MG vial IV SCH (08:24)
[2019-08-11] MEDS: LORazepam 2 mg/ml vial IV PRN (08:43)
[2019-08-11 11:00] VITALS: BP 128/77
--- NOTE | 2019-08-11 13:38 | NUR ---
Reassessment: patient now on clear liquids since yesterday. NG tube out. Pt admitted with crohn's flair up. Recommend: 1. advance diet as medically indicated to low residue 2. wt per rx Addendum: 08/11/19 at [address] Amended: Links added.
--- NOTE | 2019-08-11 13:45 | NUR ---
PAGER ID: [phone] MESSAGE: DR. CARTER, [id number]/MARJAN, REQUESTING WE CHANGE THE IV ATIVAN TO PO VALIUM, RE: SHE TAKES VALIUM AT HOME. VANESSA VINES [phone].
--- NOTE | 2019-08-11 14:32 | NUR ---
DR. CORONADO TO ELECTRONICALLY SEND RX FOT MIRALAX TO [facility].
[2019-08-11 15:00] VITALS: BP 131/77
[2019-08-11] MEDS: normal saline 1000ml 1,000 ML IV SCH (15:03)
[2019-08-11] MEDS ORDERED: diazepam 5mg tablet PO PRN (15:05)
[2019-08-11] MEDS: metroNIDAZOLE 500mg tablet PO SCH (16:32)
--- NOTE | 2019-08-11 17:13 | NUR ---
PAGER ID: [phone] MESSAGE: DR. CARTER, [id number]/MARJAN, IS IT SAFE TO ADV HER DIET? ON CL LIQUID DIET. VANESSA [phone]. TY
[2019-08-11 17:27] VITALS: BP 141/87
[2019-08-11 18:00] VITALS: BP 131/73
--- NOTE | 2019-08-11 18:20 | NUR ---
Patient in room PCU 3023. I have received report from GERMAINE Montez and had the opportunity to ask questions and assume patient care.
--- NOTE | 2019-08-11 18:21 | NUR ---
Student documentation: I have reviewed and agree with all interventions, assessments performed and documented by ZAKIA POWER STUDENT.
--- NOTE | 2019-08-11 18:35 | NUR ---
Problems reprioritized. Patient report given, questions answered & plan of care reviewed with GERMAINE UREÑA.
[2019-08-11] MEDS: CefTRIAXone/D5W-Rocephin 1gm 50 ML IV SCH (20:16)
[2019-08-11] MEDS: sacubitril/valsartan 24mg-26mg tablet PO SCH (20:16)
[2019-08-11] MEDS: apixaban 2.5mg tablet PO SCH (20:17)
[2019-08-11] MEDS: ferrous sulfate 325mg tablet PO SCH (20:17)
[2019-08-11] MEDS: traZODone 50mg tablet PO SCH ×2 (20:17→21:00)
[2019-08-11] MEDS: diphenhydrAMINE 25mg capsule PO SCH (20:17)
[2019-08-11] MEDS: carVEDilol 3.125mg tablet PO SCH (20:18)
[2019-08-11 22:00] VITALS: BP 137/85
[2019-08-12] MEDS: metroNIDAZOLE 500mg tablet PO SCH ×4 (00:28→23:30)
[2019-08-12] MEDS: methylPREDNISolone sod succ/PF 40mg inj. IV SCH ×4 (00:38→23:29)
[2019-08-12 02:00] VITALS: BP 132/78
[2019-08-12] MEDS: HYDROmorphone 1 mg/ml syringe IV PRN ×5 (02:58→23:39)
[2019-08-12 06:00] VITALS: BP 129/76
--- NOTE | 2019-08-12 06:28 | NUR ---
Problems reprioritized. Patient report given, questions answered & plan of care reviewed with GERMAINE Fan.
[2019-08-12] MEDS: pantoprazole 40mg Tablet.DR PO SCH ×2 (08:00→08:37)
[2019-08-12] MEDS: K and/or MAG REPLACEMENT MC SCH ×2 (08:00→20:00)
[2019-08-12] MEDS: pravastatin 40mg tablet PO SCH (08:35)
[2019-08-12] MEDS: lactobacillus rhamnosus 10,000 MMU CELLS/CAPSULE PO SCH ×2 (08:36→19:57)
[2019-08-12] MEDS: apixaban 2.5mg tablet PO SCH ×2 (08:37→19:57)
[2019-08-12] MEDS: carVEDilol 3.125mg tablet PO SCH ×2 (08:38→20:00)
[2019-08-12] MEDS: levoTHYROXINE 88mcg tablet PO SCH (08:39)
[2019-08-12] MEDS: ferrous sulfate 325mg tablet PO SCH ×2 (08:39→19:57)
[2019-08-12] MEDS: amiodarone 100mg tablet PO SCH (08:40)
[2019-08-12] MEDS: sacubitril/valsartan 24mg-26mg tablet PO SCH ×2 (08:40→19:56)
[2019-08-12] MEDS: FLUoxetine 20mg capsule PO SCH (08:42)
[2019-08-12] MEDS: digoxin 125mcg (0.125mg) tablet PO SCH (08:42)
[2019-08-12] MEDS: vitamin D (cholecalciferol) 1,000 unit tablet PO SCH (08:43)
--- NOTE | 2019-08-12 10:16 | NUR ---
Per Dr. Naylor: Low residue diet.
[2019-08-12] MEDS: normal saline 1000ml 1,000 ML IV SCH ×2 (10:46→21:37)
--- NOTE | 2019-08-12 12:18 | NUR ---
Reassessment: patient's diet was advanced today to low residue. Flatus present, BM yesterday. Resolving SBO per MD progress note. Pending PO intake of low residue lunch meal. Recommend: 1. Continue low residue diet 2. wt per rx 3. monitor need for ONS if with suboptimal PO intake Addendum: 08/12/19 at [address] Amended: Links added.
[2019-08-12 15:00] VITALS: BP 112/67
[2019-08-12 18:00] VITALS: BP 121/73
--- NOTE | 2019-08-12 18:30 | NUR ---
Patient in room PCU 3016. I have received report from GERMAINE Fan and had the opportunity to ask questions and assume patient care.
[2019-08-12 19:54] VITALS: BP 130/76
[2019-08-12] MEDS: traZODone 50mg tablet PO SCH ×2 (21:00→21:37)
[2019-08-12] MEDS: diphenhydrAMINE 25mg capsule PO SCH (21:38)
[2019-08-12] MEDS: CefTRIAXone/D5W-Rocephin 1gm 50 ML IV SCH (21:41)
[2019-08-12 23:33] VITALS: BP 125/76
[2019-08-13 03:00] VITALS: BP 128/77
[2019-08-13 06:00] VITALS: BP 126/79
--- NOTE | 2019-08-13 06:29 | NUR ---
Problems reprioritized. Patient report given, questions answered & plan of care reviewed with GERMAINE Avalos.
--- NOTE | 2019-08-13 06:58 | NUR ---
Patient in room PCU 3016. I have received report from GERMAINE Ochoa and had the opportunity to ask questions and assume patient care.
[2019-08-13] MEDS: pantoprazole 40mg Tablet.DR PO SCH ×2 (07:40→08:00)
[2019-08-13] MEDS: K and/or MAG REPLACEMENT MC SCH (08:00)
[2019-08-13] MEDS: methylPREDNISolone sod succ/PF 40mg inj. IV SCH (09:35)
[2019-08-13] MEDS: carVEDilol 3.125mg tablet PO SCH (09:36)
[2019-08-13] MEDS: apixaban 2.5mg tablet PO SCH (09:36)
[2019-08-13] MEDS: amiodarone 100mg tablet PO SCH (09:37)
[2019-08-13] MEDS: FLUoxetine 20mg capsule PO SCH (09:37)
[2019-08-13] MEDS: lactobacillus rhamnosus 10,000 MMU CELLS/CAPSULE PO SCH (09:37)
[2019-08-13] MEDS: ferrous sulfate 325mg tablet PO SCH (09:37)
[2019-08-13] MEDS: levoTHYROXINE 88mcg tablet PO SCH (09:39)
[2019-08-13] MEDS: metroNIDAZOLE 500mg tablet PO SCH (09:39)
[2019-08-13] MEDS: digoxin 125mcg (0.125mg) tablet PO SCH (09:40)
[2019-08-13] MEDS: vitamin D (cholecalciferol) 1,000 unit tablet PO SCH (09:40)
[2019-08-13] MEDS: pravastatin 40mg tablet PO SCH (09:43)
[2019-08-13] MEDS: sacubitril/valsartan 24mg-26mg tablet PO SCH (09:43)
[2019-08-13] MEDS: HYDROmorphone inj. 0.5 MG/0.5 ML DISP.SYRIN IV PRN (09:45)
[2019-08-13] MEDS ORDERED: BUDE3CAP15 PO (10:47)
[2019-08-13] MEDS ORDERED: METR-159 PO (10:47)
[2019-08-13] MEDS ORDERED: CIPR-230 PO (10:47)
[2019-08-13 11:00] VITALS: BP 125/77
--- NOTE | 2019-08-13 14:02 | NUR ---
Patient stable for discharge per MD orders. All instructions were reviewed, questions were answered. All belongings were collected and sent with patient. PIV discontinued, cannula intact. Tele monitor discontinued, chief telephone operator notified, tele box returned to chief telephone operator. New prescriptions were e-script to [facility] [employer] in [place], [place]. Pt wheeled to lobby and assisted into personal vehicle accompanied by .
== END 2019-08-13 14:02 | disposition home or self-care (01) | DRG 386 ==
LOC: ER 16:24 → ED HOLD 22:04 → PCU 3S 23:49
PROVIDERS: ADMIT Internal Medicine; ATTEND Family Medicine
PROC: 0D9670Z Drainage of Stomach with Drainage Device, Via Natural or Artificial Opening (ICD-10-PCS; principal; 2019-08-06)
PROC: BW211ZZ Computerized Tomography (CT Scan) of Abdomen and Pelvis using Low Osmolar Contrast (ICD-10-PCS; 2019-08-06)
DX: K50.012 Crohn's disease of small intestine with intestinal obstruction (principal); I50.22 Chronic systolic (congestive) heart failure; I11.0 Hypertensive heart disease with heart failure; I25.10 Atherosclerotic heart disease of native coronary artery without angina pectoris; I48.91 Unspecified atrial fibrillation; F41.9 Anxiety disorder, unspecified; E03.9 Hypothyroidism, unspecified; R94.5 Abnormal results of liver function studies; F32.9 Major depressive disorder, single episode, unspecified; E78.5 Hyperlipidemia, unspecified; J45.909 Unspecified asthma, uncomplicated; Z82.0 Family history of epilepsy and other diseases of the nervous system; Z82.3 Family history of stroke; Z82.49 Family history of ischemic heart disease and other diseases of the circulatory system; Z85.3 Personal history of malignant neoplasm of breast; Z87.891 Personal history of nicotine dependence; Z90.710 Acquired absence of both cervix and uterus; Z79.899 Other long term (current) drug therapy; Z88.5 Allergy status to narcotic agent; Z90.49 Acquired absence of other specified parts of digestive tract
CPT/HCPCS: 36415; 74018; 74177; 80053; 82948; 83036; 83605; 83690; 85025; 87081; 93005; 96374; 96375; 99285; C9113; G0378; J0696; J1160; J1170; J2060; J2270; J2405; J2920; J3010; J3490; J7030; Q0163; Q9967

== ENCOUNTER 2020-04-07 08:32 | Outpatient (CLI) | payer MEDICARE, BC ==
[~2020-04-07] VITALS: Ht 158.8 cm; Wt 61.2 kg
[~2020-04-07 08:32] MED LIST changes: +ADAL40PE SUBCUT; +APIX5TAB3 PO; +BUDE3CAP15 PO; +CARV3.122 PO; -CARV6.253 PO; +CHOL10006 PO; -DIGO-27 PO; +DIGO125T2 PO; +DIPH25CA83 PO; +FERR-116 PO; -FLUT16SP2 BOTHNARES; -FURO40TA4 PO; -LACT10SO PO; -LEVO100T PO; +LEVO88TA7 PO; +PANT40TA54 PO; -RIVA20TA PO; +TRAZ-256 PO
[2020-04-07 09:17] LABS: TOTAL HEMOGLOBIN 11.7 G/dl (12.0-16.0)
[2020-04-07] MEDS ORDERED: albuterol 2.5 MG/3 ML nebule NEB ONE (09:50)
== END 2020-04-07 23:59 | disposition home or self-care (01) ==
LOC: RT 08:32
PROVIDERS: ATTEND Internal Medicine Cardiovascular Disease
DX: J44.9 Chronic obstructive pulmonary disease, unspecified (principal)
CPT/HCPCS: 71046; 85018; 94060; 94727; 94729; 94760

== ENCOUNTER 2020-05-07 15:10 | Observation (INO) | payer MEDICARE, BC ==
[~2020-05-07] VITALS: Ht 157.5 cm; Wt 60.9 kg
[2020-05-07] MEDS ORDERED: aspirin 81mg tab.chew PO ONE (15:25)
[2020-05-07] MEDS ORDERED: nitroGLYCERIN 0.4mg SUBLingual tab SL PRN ×2 (15:25→18:30)
[2020-05-07 15:52] LABS: BASOPHILS % (AUTO) 0.3 % (0-1); EOSINOPHILS # (AUTO) 0.1 X10'3 (0-0.9); EOSINOPHILS % (AUTO) 1.5 % (0-6); LYMPHOCYTES # (AUTO) 3.6 X10'3 (1.1-4.8); LYMPHOCYTES % (AUTO) 42.5 % (21-51); MEAN CORPUSCULAR HEMOGLOBIN 30.8 PG (27.0-31.0); MEAN CORPUSCULAR HGB CONC 33.2 g/dL (33.0-36.5); MEAN CORPUSCULAR VOLUME 92.7 FL (78-98); MEAN PLATELET VOLUME 7.7 FL (7.4-10.4); MONOCYTES # (AUTO) 0.7 X10'3 (0-0.9); MONOCYTES % (AUTO) 7.8 % (2-12); NEUTROPHILS # (AUTO) 4.1 X10'3 (1.8-7.7); NEUTROPHILS % (AUTO) 47.9 % (42-75); PLATELET COUNT 169 X10'3 (140-440); RED BLOOD COUNT 3.89 X10'6 (4.20-5.60); RED CELL DISTRIBUTION WIDTH 13.4 % (11.5-14.5); WHITE BLOOD COUNT 8.5 X10'3 (4.5-11.0)
[2020-05-07 16:15] LABS: ALANINE AMINOTRANSFERASE 37 U/L (12-78); ALBUMIN 4.2 G/DL (3.4-5.0); ALBUMIN/GLOBULIN RATIO 1.3 (1.1-1.5); ALKALINE PHOSPHATASE 74 IU/L (46-116); ANION GAP 9 (8-16); ASPARTATE AMINO TRANSFERASE 33 U/L (10-37); BILIRUBIN,TOTAL 0.5 MG/DL (0.1-1.0); BLOOD UREA NITROGEN 10 MG/DL (7-18); CALCIUM 9.5 MG/DL (8.5-10.1); CHLORIDE 102 MMOL/L (99-107); CREATININE 0.77 MG/DL (0.40-0.90); GLUCOSE 110 MG/DL (70-104); MAGNESIUM 1.9 MG/DL (1.5-2.4); SODIUM 142 MMOL/L (135-145); TOTAL CARBON DIOXIDE 30.8 MMOL/L (24-32); TOTAL PROTEIN 7.4 G/DL (6.4-8.2); eGFR 75 ML/MIN
[2020-05-07 16:18] LABS: POTASSIUM 2.6 MMOL/L (3.5-5.1)
[2020-05-07] MEDS ORDERED: potassium Cl 20 mEq SR tablet PO ONE (16:20)
[2020-05-07] MEDS: magnesium 2GM in 50ml NS 50 ML IV SCH ×2 (16:44→17:28)
[2020-05-07 16:51] LABS: D-DIMER < 0.19 MG/L FEU (0-0.50)
[2020-05-07] MEDS ORDERED: ondansetron/PF 4mg/2ml inj IV ONE (17:35)
[2020-05-07] MEDS ORDERED: normal saline 1000ML IV soln IVB ONE (17:35)
[2020-05-07] MEDS ORDERED: fentaNYL/PF 50MCG/1 ML 2ML syringe IV ONE (17:35)
[2020-05-07] MEDS ORDERED: FURO-149 PO (18:18)
[2020-05-07] MEDS ORDERED: COFF1CAP2 PO (18:18)
[2020-05-07] MEDS ORDERED: GOJI BERRY PO (18:18)
[2020-05-07] MEDS ORDERED: ELDE1CAP PO (18:18)
[2020-05-07] MEDS ORDERED: magnesium 2GM in 50ml NS 50 ML IV PRN (18:30)
[2020-05-07] MEDS ORDERED: metoprolol tartrate 1mg/ml inj IV PRN (18:30)
[2020-05-07] MEDS ORDERED: potassium Cl 40MEQ/1/2NS 520ml 520 ML IV PRN ×2 (18:30)
[2020-05-07] MEDS ORDERED: regadenoson 0.4mg/5ml syringe IV ONE (18:30)
[2020-05-07] MEDS ORDERED: ondansetron/PF 4mg/2ml inj IV PRN (18:30)
[2020-05-07] MEDS ORDERED: HYDROcodone/acetaminophen 5mg/325mg tablet PO PRN (18:30)
[2020-05-07] MEDS ORDERED: magnesium hydroxide 30ml (MOM) UD suspension PO PRN (18:30)
[2020-05-07] MEDS ORDERED: potassium Cl 20 mEq SR tablet PO PRN (18:30)
[2020-05-07] MEDS ORDERED: mag hydrox/Alum hydrox/simeth 30ml oral suspension PO PRN (18:30)
[2020-05-07] MEDS ORDERED: aminophylline 250mg/10ml inj. IV PRN (18:30)
[2020-05-07] MEDS ORDERED: magnesium 4gm in 100ml NS 100 ML IV PRN (18:30)
[2020-05-07] MEDS ORDERED: acetaminophen 325mg tablet PO PRN ×2 (18:30)
[2020-05-07] MEDS ORDERED: diazepam 5mg tablet PO PRN (18:40)
--- NOTE | 2020-05-07 18:40 | NUR ---
patietn dry heaving than bile colored emesis, chest pain non radiating with vomitus. medication and ivf as ordered.
--- NOTE | 2020-05-07 19:15 | NUR ---
Patient in room MED 307. I have received report from Martha HERRON in ED and had the opportunity to ask questions and assume patient care.
[2020-05-07] MEDS ORDERED: LIDOcaine/PRILOcaine 5gm cream TP PRN (19:20)
[2020-05-07 19:26] VITALS: BP 122/67
[2020-05-07] MEDS ORDERED: carVEDilol 3.125mg tablet PO SCH (20:00)
[2020-05-07] MEDS: pantoprazole 40mg Tablet.DR PO SCH (20:52)
[2020-05-07] MEDS: sacubitril/valsartan 24mg-26mg tablet PO SCH (20:52)
[2020-05-07] MEDS: potassium Cl 20 mEq SR tablet PO PRN (20:53)
[2020-05-07] MEDS: FLUoxetine 20mg capsule PO SCH (20:54)
[2020-05-07] MEDS: K and/or MAG REPLACEMENT MC SCH (20:58)
[2020-05-07] MEDS ORDERED: traZODone 50mg tablet PO SCH (21:00)
[2020-05-07] MEDS ORDERED: pravastatin 40mg tablet PO SCH (21:00)
[2020-05-07] MEDS ORDERED: diphenhydrAMINE 25mg capsule PO SCH (21:00)
[2020-05-08] VITALS (10 sets, daily range): BP systolic 91–115; BP diastolic 42–63
[2020-05-08] MEDS: HYDROcodone/acetaminophen 10/325mg tab PO PRN ×2 (00:27→11:17)
[2020-05-08] MEDS: potassium Cl 20 mEq SR tablet PO PRN (03:20)
--- NOTE | 2020-05-08 03:25 | NUR ---
Student documentation: I have reviewed and agree with all interventions, assessments performed and documented by Tye HERRON.
[2020-05-08 04:05] LABS: BASOPHILS % (AUTO) 0.3 % (0-1); EOSINOPHILS # (AUTO) 0.2 X10'3 (0-0.9); EOSINOPHILS % (AUTO) 2.6 % (0-6); HEMATOCRIT 29.8 % (35.0-45.0); LYMPHOCYTES # (AUTO) 3.1 X10'3 (1.1-4.8); LYMPHOCYTES % (AUTO) 51.7 % (21-51); MEAN CORPUSCULAR HEMOGLOBIN 30.8 PG (27.0-31.0); MEAN CORPUSCULAR HGB CONC 33.5 g/dL (33.0-36.5); MEAN CORPUSCULAR VOLUME 91.9 FL (78-98); MEAN PLATELET VOLUME 7.9 FL (7.4-10.4); MONOCYTES # (AUTO) 0.5 X10'3 (0-0.9); MONOCYTES % (AUTO) 8.6 % (2-12); NEUTROPHILS # (AUTO) 2.2 X10'3 (1.8-7.7); NEUTROPHILS % (AUTO) 36.8 % (42-75); PLATELET COUNT 140 X10'3 (140-440); RED BLOOD COUNT 3.24 X10'6 (4.20-5.60); RED CELL DISTRIBUTION WIDTH 13.6 % (11.5-14.5)
[2020-05-08 04:33] LABS: ALANINE AMINOTRANSFERASE 24 U/L (12-78); ALBUMIN 2.9 G/DL (3.4-5.0); ALBUMIN/GLOBULIN RATIO 1.2 (1.1-1.5); ALKALINE PHOSPHATASE 55 IU/L (46-116); ANION GAP 6 (8-16); ASPARTATE AMINO TRANSFERASE 23 U/L (10-37); BILIRUBIN,TOTAL 0.2 MG/DL (0.1-1.0); BLOOD UREA NITROGEN 9 MG/DL (7-18); BUN/CREATININE RATIO 13.6 (6.6-38.0); CALCIUM 8.3 MG/DL (8.5-10.1); CHLORIDE 110 MMOL/L (99-107); CREATININE 0.66 MG/DL (0.40-0.90); GLUCOSE 92 MG/DL (70-104); POTASSIUM 3.5 MMOL/L (3.5-5.1); SODIUM 146 MMOL/L (135-145); TOTAL CARBON DIOXIDE 29.6 MMOL/L (24-32); TOTAL PROTEIN 5.4 G/DL (6.4-8.2); eGFR 89 ML/MIN
[2020-05-08 04:36] LABS: MAGNESIUM 2.2 MG/DL (1.5-2.4)
--- NOTE | 2020-05-08 06:03 | NUR ---
Problems reprioritized. Patient report given, questions answered & plan of care reviewed with Lana HERRON.
[2020-05-08] MEDS ORDERED: levoTHYROXINE 100mcg tablet PO SCH (07:00)
[2020-05-08] MEDS ORDERED: amiodarone 100mg tablet PO SCH (08:00)
[2020-05-08] MEDS ORDERED: spironolactone 25 MG tablet PO SCH (08:00)
[2020-05-08] MEDS ORDERED: ELDERBERRY FRUIT AND FLOWER PO SCH (08:00)
[2020-05-08] MEDS ORDERED: [UNRECOGNIZED DRUG - OTHER] PO SCH (08:00)
[2020-05-08] MEDS: sacubitril/valsartan 24mg-26mg tablet PO SCH (08:00)
[2020-05-08] MEDS ORDERED: furosemide 40mg tablet PO SCH (08:00)
[2020-05-08] MEDS: K and/or MAG REPLACEMENT MC SCH (08:00)
[2020-05-08] MEDS ORDERED: digoxin 125mcg (0.125mg) tablet PO SCH (08:00)
[2020-05-08] MEDS: pantoprazole 40mg Tablet.DR PO SCH (11:17)
[2020-05-08] MEDS: FLUoxetine 20mg capsule PO SCH (11:19)
[2020-05-08] MEDS ORDERED: POTA20TA19 PO (13:19)
[2020-05-08] MEDS ORDERED: LEVO25TA7 PO (13:19)
[2020-05-08] MEDS ORDERED: LIDO30CR23 TOP (13:19)
--- NOTE | 2020-05-08 14:59 | NUR ---
PATIENT DC AT THIS TIME, DR FRIAS CAME AND SPOKE TO THE PATIENT AND ANSWERED ALL QUESTIONS, DC PAPERS GIVEN AND IV DC, PATIENT AWARE AND UNDERSTANDS, NO OTHER NEEDS AT TIME OF DC PATIENT IN STABLE CONDITION.
[2020-05-15] MEDS ORDERED: TYPE IN GENERIC & BRAND NAME OF PATIENT MED STRENGTH & FORM SQ SCH (08:00)
== END 2020-05-08 14:37 | disposition home or self-care (01) ==
LOC: ER 15:11 → ED HOLD 18:27 → MED 3N 19:15
PROVIDERS: ADMIT Family Medicine; ATTEND Family Medicine
DX: R07.89 Other chest pain (principal); E87.6 Hypokalemia; I48.20 Chronic atrial fibrillation, unspecified; I50.22 Chronic systolic (congestive) heart failure; K50.90 Crohn's disease, unspecified, without complications; J44.9 Chronic obstructive pulmonary disease, unspecified; I24.9 Acute ischemic heart disease, unspecified; Z85.3 Personal history of malignant neoplasm of breast; Z87.891 Personal history of nicotine dependence; Z90.49 Acquired absence of other specified parts of digestive tract; Z95.0 Presence of cardiac pacemaker; Z79.899 Other long term (current) drug therapy; Z88.5 Allergy status to narcotic agent; Z91.018 Allergy to other foods; Z88.8 Allergy status to other drugs, medicaments and biological substances
CPT/HCPCS: 36415; 71045; 78452; 80053; 83735; 83880; 84439; 84443; 84484; 85025; 85379; 87081; 93005; 93017; 93306; 96365; 96366; 96375; 99285; A9500; G0378; J2405; J2785; J3010; J3475; J7030; Q0163

== ENCOUNTER 2020-09-09 10:02 | Outpatient (CLI) | payer MEDICARE, BC ==
[2020-09-09] VITALS (21 sets, daily range): BP systolic 90–120; BP diastolic 51–105
[~2020-09-09 10:02] MED LIST changes: -APIX5TAB3 PO; -BUDE3CAP15 PO; -CHOL10006 PO; +COFF1CAP2 PO; +ELDE1CAP PO; -FERR-116 PO; +FURO-149 PO; +GOJI BERRY PO; -HYDR-4383 PO; +LEVO25TA7 PO; -LEVO88TA7 PO; +LIDO30CR TOP; -ONDA4TAB9 SL; +POTA20TA19 PO; -SPIR25TA5 PO
== END 2020-09-09 23:59 | disposition home or self-care (01) ==
LOC: CARD DIAG 10:02
PROVIDERS: ATTEND Internal Medicine Cardiovascular Disease
DX: R42 Dizziness and giddiness (principal)
CPT/HCPCS: 93660

== ENCOUNTER 2021-02-09 05:50 | Day surgery (SDC) | payer MEDICARE, BC ==
[2021-02-08 10:01] LABS: BASOPHILS % (AUTO) 0.3 % (0-1); EOSINOPHILS # (AUTO) 0.1 X10'3 (0-0.9); EOSINOPHILS % (AUTO) 1.4 % (0-6); HEMATOCRIT 38.2 % (35.0-45.0); HEMOGLOBIN 12.7 g/dl (12.0-16.0); LYMPHOCYTES # (AUTO) 3.5 X10'3 (1.1-4.8); LYMPHOCYTES % (AUTO) 37.1 % (21-51); MEAN CORPUSCULAR HEMOGLOBIN 31.7 PG (27.0-31.0); MEAN CORPUSCULAR HGB CONC 33.2 g/dL (33.0-36.5); MEAN CORPUSCULAR VOLUME 95.4 FL (78-98); MEAN PLATELET VOLUME 6.9 FL (7.4-10.4); MONOCYTES # (AUTO) 0.7 X10'3 (0-0.9); MONOCYTES % (AUTO) 7.3 % (2-12); NEUTROPHILS # (AUTO) 5.1 X10'3 (1.8-7.7); NEUTROPHILS % (AUTO) 53.9 % (42-75); PLATELET COUNT 193 X10'3 (140-440); RED CELL DISTRIBUTION WIDTH 12.8 % (11.5-14.5); WHITE BLOOD COUNT 9.5 X10'3 (4.5-11.0)
[2021-02-08 10:14] LABS: PARTIAL THROMBOPLASTIN TIME 26 SECONDS (22-32)
[2021-02-08 10:18] LABS: ANION GAP 12 (8-16); BLOOD UREA NITROGEN 7 MG/DL (7-18); BUN/CREATININE RATIO 9.9 (6.6-38.0); CALCIUM 9.4 MG/DL (8.5-10.1); CHLORIDE 97 MMOL/L (99-107); CREATININE 0.71 MG/DL (0.40-0.90); GLUCOSE 89 MG/DL (70-104); POTASSIUM 3.9 MMOL/L (3.5-5.1); SODIUM 135 MMOL/L (135-145); eGFR 82 ML/MIN
[~2021-02-09] VITALS: Ht 157.5 cm; Wt 60.8 kg
[2021-02-09] VITALS (10 sets, daily range): BP systolic 117–145; BP diastolic 57–76
[~2021-02-09 05:50] MED LIST changes: +POTA-207 PO; -POTA20TA19 PO
[2021-02-09] MEDS ORDERED: LORazepam 0.5 MG tablet PO PRN (06:20)
[2021-02-09] MEDS ORDERED: LIDOcaine/PRILOcaine 5gm cream TP ONE (06:20)
[2021-02-09] MEDS ORDERED: normal saline 1,000 ML IV SCH ×2 (06:20→10:05)
[2021-02-09] MEDS ORDERED: diphenhydrAMINE 25mg capsule PO PRN (06:20)
[2021-02-09] MEDS ORDERED: FERR324T23 PO (06:37)
[2021-02-09] MEDS ORDERED: LEVO5TAB13 PO (06:37)
[2021-02-09] MEDS ORDERED: POTA-82 PO (06:37)
[2021-02-09] MEDS ORDERED: LEVO88TA7 PO (06:37)
[2021-02-09] MEDS ORDERED: HYDR-3964 PO (06:46)
[2021-02-09] MEDS ORDERED: ACET-2971 PO (06:46)
[2021-02-09] MEDS ORDERED: BIOT10TA PO (06:46)
[2021-02-09] MEDS ORDERED: MELA10TA PO (06:46)
[2021-02-09] MEDS ORDERED: APIX5TAB3 PO (06:46)
[2021-02-09] MEDS ORDERED: CHOL200012 PO (06:46)
[2021-02-09] MEDS ORDERED: MULT-1085 PO (06:46)
[2021-02-09] MEDS ORDERED: ACET-2615 PO (06:47)
[2021-02-09] MEDS ORDERED: midazolam 1 mg/ML 2ml injection ONE (07:22)
[2021-02-09] MEDS ORDERED: fentaNYL/PF 50MCG/1 ML 2ML syringe ONE (07:22)
[2021-02-09] MEDS ORDERED: verapamil 2.5 mg/ml inj IV ONE (07:22)
[2021-02-09] MEDS ORDERED: nitroGLYCERIN-Tridil 50MG/D5W 250 ML IV ONE (07:22)
[2021-02-09] MEDS ORDERED: LIDOcaine 1% (10mg/ml)w/preservative injection 20ml MDV ONE (07:23)
[2021-02-09] MEDS ORDERED: heparin 1,000unit/ml 10ml vial 10 ML ONE (07:23)
[2021-02-09] MEDS ORDERED: iohexol 350 MG/ML 50ML vial IV ONE (07:23)
[2021-02-09] MEDS ORDERED: iohexol 350MG/ML 100ml bottle IV ONE (07:23)
== END 2021-02-09 14:05 | disposition home or self-care (01) ==
LOC: SSTAY O 05:50
PROVIDERS: ATTEND Internal Medicine Cardiovascular Disease
DX: R94.39 Abnormal result of other cardiovascular function study (principal); I25.10 Atherosclerotic heart disease of native coronary artery without angina pectoris; I42.0 Dilated cardiomyopathy; J44.9 Chronic obstructive pulmonary disease, unspecified; K21.9 Gastro-esophageal reflux disease without esophagitis; D64.9 Anemia, unspecified; E78.49 Other hyperlipidemia; I11.0 Hypertensive heart disease with heart failure; I50.9 Heart failure, unspecified; I47.2 Ventricular tachycardia; Z85.3 Personal history of malignant neoplasm of breast; Z95.810 Presence of automatic (implantable) cardiac defibrillator; Z79.01 Long term (current) use of anticoagulants; Z79.899 Other long term (current) drug therapy; Z87.891 Personal history of nicotine dependence; Z98.51 Tubal ligation status; Z90.49 Acquired absence of other specified parts of digestive tract; Z90.710 Acquired absence of both cervix and uterus; Z98.890 Other specified postprocedural states; Z88.0 Allergy status to penicillin; Z88.8 Allergy status to other drugs, medicaments and biological substances; Z82.49 Family history of ischemic heart disease and other diseases of the circulatory system; Z82.3 Family history of stroke
CPT/HCPCS: 36415; 80048; 85025; 85610; 85730; 93005; 93460; 99152; 99153; C1751; C1769; C1894; J1644; J2250; J3010; J3490; J7030; Q0163; Q9967; A4620; A5120; A6258; A6449

== ENCOUNTER 2021-09-28 06:55 | Outpatient (CLI) | payer MEDICARE, BC ==
[~2021-09-28] VITALS: Ht 158.8 cm; Wt 63.5 kg
[~2021-09-28 06:55] MED LIST changes: +ACET-2971 PO; +AMIO200T27 PO; -AMIO200T61 PO; +APIX5TAB3 PO; +BIOT1CAP3 PO; +CHOL200012 PO; -COFF1CAP2 PO; -DIGO125T2 PO; -DIPH25CA83 PO; +FERR324T23 PO; -FLUO20CA39 PO; +FLUO40CA PO; -FURO-149 PO; +FURO-150 PO; -GOJI BERRY PO; +IPRA3AMP9 IH; +LAN0.125T PO; +LEVO-65 PO; -LEVO25TA7 PO; +LEVO5TAB29 PO; +LEVO88TA7 PO; -LIDO30CR TOP; +MELA10TA2 PO; +MULT-1085 PO; -POTA-207 PO; +POTA-82 PO; +PRED10TA PO
[2021-09-28 07:32] LABS: TOTAL HEMOGLOBIN 12.9 G/dl (12.0-16.0)
[2021-09-28] MEDS ORDERED: albuterol 2.5 MG/3 ML nebule NEB PRN (08:25)
== END 2021-09-28 23:59 | disposition home or self-care (01) ==
LOC: RT 06:55
PROVIDERS: ATTEND Internal Medicine Cardiovascular Disease
DX: I70.0 Atherosclerosis of aorta (principal); Q25.46 Tortuous aortic arch; J98.4 Other disorders of lung; J45.909 Unspecified asthma, uncomplicated; Z79.899 Other long term (current) drug therapy; Z98.890 Other specified postprocedural states; Z87.891 Personal history of nicotine dependence
CPT/HCPCS: 71046; 85018; 94010; 94727; 94729

== ENCOUNTER 2021-10-09 09:10 | Emergency (ER) | payer MEDICARE, BC ==
[~2021-10-09] VITALS: Ht 160 cm; Wt 63.6 kg
[2021-10-09] MEDS ORDERED: ondansetron/PF 4mg/2ml inj IV ONE (10:20)
[2021-10-09 10:32] LABS: BASOPHILS % (AUTO) 0.4 % (0-1); EOSINOPHILS # (AUTO) 0.2 X10'3 (0-0.9); EOSINOPHILS % (AUTO) 2.7 % (0-6); HEMATOCRIT 37.1 % (35.0-45.0); HEMOGLOBIN 12.4 g/dl (12.0-16.0); LYMPHOCYTES # (AUTO) 2.9 X10'3 (1.1-4.8); LYMPHOCYTES % (AUTO) 37.2 % (21-51); MEAN CORPUSCULAR HEMOGLOBIN 31.6 PG (27.0-31.0); MEAN CORPUSCULAR HGB CONC 33.4 g/dL (33.0-36.5); MEAN CORPUSCULAR VOLUME 94.7 FL (78-98); MEAN PLATELET VOLUME 7.3 FL (7.4-10.4); MONOCYTES # (AUTO) 0.7 X10'3 (0-0.9); MONOCYTES % (AUTO) 9.3 % (2-12); NEUTROPHILS % (AUTO) 50.4 % (42-75); PLATELET COUNT 181 X10'3 (140-440); RED BLOOD COUNT 3.91 X10'6 (4.20-5.60); WHITE BLOOD COUNT 7.9 X10'3 (4.5-11.0)
[2021-10-09 10:43] LABS: ALANINE AMINOTRANSFERASE 44 U/L (12-78); ALBUMIN 3.8 G/DL (3.4-5.0); ALBUMIN/GLOBULIN RATIO 1.2 (1.1-1.5); ALKALINE PHOSPHATASE 61 IU/L (46-116); ANION GAP 8 (8-16); ASPARTATE AMINO TRANSFERASE 23 U/L (10-37); BILIRUBIN,TOTAL 0.5 MG/DL (0.1-1.0); BLOOD UREA NITROGEN 12 MG/DL (7-18); BUN/CREATININE RATIO 17.4 (6.6-38.0); CALCIUM 9.3 MG/DL (8.5-10.1); CHLORIDE 102 MMOL/L (99-107); CREATININE 0.69 MG/DL (0.40-0.90); GLUCOSE 88 MG/DL (70-104); POTASSIUM 3.7 MMOL/L (3.5-5.1); SODIUM 138 MMOL/L (135-145); TOTAL CARBON DIOXIDE 28.3 MMOL/L (24-32); TOTAL PROTEIN 6.9 G/DL (6.4-8.2); eGFR 85 ML/MIN
[2021-10-09] MEDS ORDERED: albuterol 2.5 MG/3 ML nebule NEB ONE (10:50)
[2021-10-09 10:51] LABS: AMYLASE 25 U/L (25-115); LIPASE 84 U/L (73-393)
[2021-10-09] MEDS ORDERED: mag hydrox/Alum hydrox/simeth 30ml oral suspension PO ONE (10:55)
[2021-10-09] MEDS ORDERED: famotidine/PF 10 mg/ml inj IV ONE (10:55)
[2021-10-09] MEDS ORDERED: iohexol 350MG/ML 100ml bottle IV ONE (11:14)
[2021-10-09] MEDS ORDERED: acetaminophen 325mg tablet PO ONE (11:15)
[2021-10-09 11:24] LABS: APTT 27 SECONDS (22-32)
--- NOTE | 2021-10-09 12:13 | NUR ---
Patient ambulated to restroom without difficulty.
[2021-10-09 12:52] LABS: D-DIMER 0.23 MG/L FEU (0-0.50)
[2021-10-09] MEDS ORDERED: AMOX-117 PO (13:38)
[2021-10-09] MEDS ORDERED: methylPREDNISolone sod succ 125mg/2ml vial IV ONE (13:40)
[2021-10-09] MEDS ORDERED: ALB0.5UD IH (13:40)
[2021-10-09 13:59] VITALS: BP 112/64
== END 2021-10-09 14:03 | disposition home or self-care (01) ==
LOC: ER 09:11
DX: J44.1 Chronic obstructive pulmonary disease with (acute) exacerbation (principal); R07.89 Other chest pain; R11.2 Nausea with vomiting, unspecified; R06.02 Shortness of breath; R19.7 Diarrhea, unspecified; I48.91 Unspecified atrial fibrillation; I25.10 Atherosclerotic heart disease of native coronary artery without angina pectoris; I50.9 Heart failure, unspecified; J44.9 Chronic obstructive pulmonary disease, unspecified; K21.9 Gastro-esophageal reflux disease without esophagitis; G89.29 Other chronic pain; F17.200 Nicotine dependence, unspecified, uncomplicated; Z86.14 Personal history of Methicillin resistant Staphylococcus aureus infection; Z85.3 Personal history of malignant neoplasm of breast; Z90.49 Acquired absence of other specified parts of digestive tract; Z95.0 Presence of cardiac pacemaker; Z98.890 Other specified postprocedural states; Z88.8 Allergy status to other drugs, medicaments and biological substances; Z79.2 Long term (current) use of antibiotics; Z79.899 Other long term (current) drug therapy
CPT/HCPCS: 36415; 71045; 74177; 80053; 80162; 82150; 83690; 83880; 84484; 85025; 85379; 85610; 85730; 93005; 94640; 96374; 96375; 99285; J2405; J2930; J3490; Q9967; 94760

== ENCOUNTER 2021-12-13 12:34 | Emergency (ER) | payer MEDICARE, BC ==
[~2021-12-13] VITALS: Ht 157.5 cm; Wt 65.9 kg
[2021-12-13 14:05] LABS: BASOPHILS # (AUTO) 0.1 X10'3 (0-0.2); BASOPHILS % (AUTO) 0.5 % (0-1); EOSINOPHILS # (AUTO) 0.1 X10'3 (0-0.9); EOSINOPHILS % (AUTO) 0.8 % (0-6); HEMATOCRIT 40.5 % (35.0-45.0); HEMOGLOBIN 13.5 g/dl (12.0-16.0); LYMPHOCYTES % (AUTO) 37.8 % (21-51); MEAN CORPUSCULAR HEMOGLOBIN 31.7 PG (27.0-31.0); MEAN CORPUSCULAR HGB CONC 33.2 g/dL (33.0-36.5); MEAN CORPUSCULAR VOLUME 95.2 FL (78-98); MEAN PLATELET VOLUME 7.3 FL (7.4-10.4); MONOCYTES # (AUTO) 0.9 X10'3 (0-0.9); MONOCYTES % (AUTO) 8.7 % (2-12); NEUTROPHILS # (AUTO) 5.5 X10'3 (1.8-7.7); NEUTROPHILS % (AUTO) 52.2 % (42-75); PLATELET COUNT 184 X10'3 (140-440); RED BLOOD COUNT 4.25 X10'6 (4.20-5.60); RED CELL DISTRIBUTION WIDTH 13.6 % (11.5-14.5); WHITE BLOOD COUNT 10.5 X10'3 (4.5-11.0)
[2021-12-13 14:23] LABS: ALANINE AMINOTRANSFERASE 40 U/L (12-78); ALBUMIN/GLOBULIN RATIO 1.3 (1.1-1.5); ALKALINE PHOSPHATASE 66 IU/L (46-116); ANION GAP 13 (8-16); ASPARTATE AMINO TRANSFERASE 27 U/L (10-37); BILIRUBIN,TOTAL 0.4 MG/DL (0.1-1.0); BLOOD UREA NITROGEN 10 MG/DL (7-18); BUN/CREATININE RATIO 10.5 (6.6-38.0); CALCIUM 9.6 MG/DL (8.5-10.1); CHLORIDE 104 MMOL/L (99-107); CREATININE 0.95 MG/DL (0.40-0.90); GLUCOSE 130 MG/DL (70-104); POTASSIUM 4.1 MMOL/L (3.5-5.1); SODIUM 138 MMOL/L (135-145); TOTAL CARBON DIOXIDE 20.6 MMOL/L (24-32); TOTAL PROTEIN 7.1 G/DL (6.4-8.2); eGFR 58 ML/MIN
[2021-12-13] MEDS ORDERED: magnesium 2GM in 50ml NS 50 ML IV ONE (16:10)
[2021-12-13] MEDS ORDERED: ipratropium/albuterol 3ml nebule NEB ONE (16:10)
[2021-12-13] MEDS ORDERED: methylPREDNISolone sod succ 125mg/2ml vial IV ONE (16:10)
[2021-12-13] MEDS ORDERED: ondansetron/PF 4mg/2ml inj IV STA (16:26)
[2021-12-13] MEDS ORDERED: ondansetron/PF 4mg/2ml inj IV ONE (16:30)
[2021-12-13] MEDS ORDERED: ketorolac trometh. 30mg/ml inj. IV ONE (17:25)
[2021-12-13] MEDS ORDERED: LORazepam 2 mg/ml vial IV ONE (17:25)
[2021-12-13] MEDS ORDERED: albuterol 2.5 MG/3 ML nebule CONTNEB PRN (17:25)
[2021-12-13] MEDS ORDERED: HYDROcodone/acetaminophen 5mg/325mg tablet PO ONE (18:10)
[2021-12-13] MEDS ORDERED: LIDOcaine 5% patch TP STA (18:45)
[2021-12-13] MEDS ORDERED: PRED20TA PO (19:30)
[2021-12-13 19:48] VITALS: BP 126/61
== END 2021-12-13 19:49 | disposition home or self-care (01) ==
LOC: ER 12:35
DX: J45.901 Unspecified asthma with (acute) exacerbation (principal); F41.9 Anxiety disorder, unspecified; R07.89 Other chest pain; R05.9 Cough, unspecified; I48.91 Unspecified atrial fibrillation; I25.10 Atherosclerotic heart disease of native coronary artery without angina pectoris; I11.0 Hypertensive heart disease with heart failure; I50.9 Heart failure, unspecified; E78.00 Pure hypercholesterolemia, unspecified; J44.9 Chronic obstructive pulmonary disease, unspecified; K21.9 Gastro-esophageal reflux disease without esophagitis; G89.29 Other chronic pain; Z86.14 Personal history of Methicillin resistant Staphylococcus aureus infection; Z85.3 Personal history of malignant neoplasm of breast; Z90.49 Acquired absence of other specified parts of digestive tract; Z95.0 Presence of cardiac pacemaker; Z98.890 Other specified postprocedural states; Z88.8 Allergy status to other drugs, medicaments and biological substances; Z79.899 Other long term (current) drug therapy; Z79.2 Long term (current) use of antibiotics
CPT/HCPCS: 36415; 71045; 80053; 83880; 84484; 85025; 93005; 94640; 96365; 96375; 99285; J1885; J2060; J2405; J2930; J3475; 94760

== ENCOUNTER 2022-02-13 07:45 | Emergency (ER) | payer MEDICARE, BC ==
[~2022-02-13] VITALS: Ht 160 cm; Wt 63.6 kg
[2022-02-13] MEDS ORDERED: oxyCODONE/APAP 5-325mg tablet PO ONE (08:20)
[2022-02-13] MEDS ORDERED: ketorolac trometh. 30mg/ml inj. IM ONE (08:20)
[2022-02-13 09:30] VITALS: BP 104/65
[2022-02-14] MEDS ORDERED: POLY119P2 PO (00:57)
[2022-02-14] MEDS ORDERED: BISA-78 PO (00:57)
[2022-02-14] MEDS ORDERED: ONDA8TAB13 PO (00:57)
== END 2022-02-13 09:49 | disposition home or self-care (01) ==
LOC: ER 07:45
DX: M25.551 Pain in right hip (principal); Z20.822 Contact with and (suspected) exposure to COVID-19; G89.29 Other chronic pain; I48.91 Unspecified atrial fibrillation; I25.10 Atherosclerotic heart disease of native coronary artery without angina pectoris; I11.0 Hypertensive heart disease with heart failure; I50.9 Heart failure, unspecified; J44.9 Chronic obstructive pulmonary disease, unspecified; K21.9 Gastro-esophageal reflux disease without esophagitis; Z86.14 Personal history of Methicillin resistant Staphylococcus aureus infection; Z85.3 Personal history of malignant neoplasm of breast; Z90.49 Acquired absence of other specified parts of digestive tract; Z95.0 Presence of cardiac pacemaker; Z98.890 Other specified postprocedural states; Z79.2 Long term (current) use of antibiotics; Z79.899 Other long term (current) drug therapy
CPT/HCPCS: 87811; 96372; 99284; J1885

== ENCOUNTER 2022-02-13 21:45 | Emergency (ER) | payer MEDICARE, BC ==
[~2022-02-13] VITALS: Ht 160 cm; Wt 63.6 kg
[2022-02-13 22:01] LABS: BASOPHILS % (AUTO) 0.3 % (0-1); EOSINOPHILS # (AUTO) 0.3 X10'3 (0-0.9); EOSINOPHILS % (AUTO) 3.5 % (0-6); HEMATOCRIT 36.8 % (35.0-45.0); HEMOGLOBIN 12.1 g/dl (12.0-16.0); LYMPHOCYTES # (AUTO) 1.5 X10'3 (1.1-4.8); LYMPHOCYTES % (AUTO) 18.3 % (21-51); MEAN CORPUSCULAR HEMOGLOBIN 31.4 PG (27.0-31.0); MEAN CORPUSCULAR HGB CONC 32.9 g/dL (33.0-36.5); MEAN CORPUSCULAR VOLUME 95.4 FL (78-98); MEAN PLATELET VOLUME 7.3 FL (7.4-10.4); MONOCYTES # (AUTO) 1.1 X10'3 (0-0.9); MONOCYTES % (AUTO) 13.2 % (2-12); NEUTROPHILS # (AUTO) 5.2 X10'3 (1.8-7.7); NEUTROPHILS % (AUTO) 64.7 % (42-75); PLATELET COUNT 123 X10'3 (140-440); RED BLOOD COUNT 3.85 X10'6 (4.20-5.60)
[2022-02-13 22:23] LABS: ALANINE AMINOTRANSFERASE 32 U/L (12-78); ALBUMIN 3.5 G/DL (3.4-5.0); ALBUMIN/GLOBULIN RATIO 1.3 (1.1-1.5); ALKALINE PHOSPHATASE 68 IU/L (46-116); ANION GAP 13 (8-16); ASPARTATE AMINO TRANSFERASE 39 U/L (10-37); BILIRUBIN,TOTAL 0.2 MG/DL (0.1-1.0); BLOOD UREA NITROGEN 15 MG/DL (7-18); BUN/CREATININE RATIO 17.6 (6.6-38.0); CALCIUM 9.3 MG/DL (8.5-10.1); CHLORIDE 103 MMOL/L (99-107); CREATININE 0.85 MG/DL (0.40-0.90); GLUCOSE 119 MG/DL (70-104); MAGNESIUM 1.8 MG/DL (1.5-2.4); SODIUM 136 MMOL/L (135-145); TOTAL CARBON DIOXIDE 19.9 MMOL/L (24-32); TOTAL PROTEIN 6.3 G/DL (6.4-8.2); eGFR 67 ML/MIN
[2022-02-13] MEDS ORDERED: normal saline 1000ml 1,000 ML IV ONE (22:50)
[2022-02-13] MEDS ORDERED: ondansetron/PF 4mg/2ml inj IV ONE (22:50)
[2022-02-13 22:54] LABS: LIPASE 57 U/L (73-393)
[2022-02-13] MEDS ORDERED: ketorolac trometh. 30mg/ml inj. IV ONE (22:55)
[2022-02-13] MEDS ORDERED: morphine 4 MG/ML inj SYRINge IV ONE (22:55)
[2022-02-13 23:26] LABS: ETHANOL < 0.010 GM/DL (0.0-0.010)
[2022-02-14] MEDS ORDERED: bisacodyl 5mg tablet.DR PO ONE
[2022-02-14 00:31] LABS: CLARITY,URINE CLEAR (Clear); COLOR,URINE YELLOW (Yellow); GLUCOSE, URINE NEGATIVE (Neg); KETONES,URINE 15 mg/dl (Neg); LEUKOCYTE ESTERASE ,URINE NEGATIVE (Neg); NITRITES, URINE NEGATIVE (Neg); OCCULT BLOOD,URINE NEGATIVE (Neg); PH,URINE 5.5 (4.8-8.0); PROTEIN,URINE NEGATIVE (Neg); UROBILINOGEN,URINE 0.2 E.U/dL (0.2-1.0)
[2022-02-14 00:42] LABS: UA COLLECTION TYPE NON-SPECIFIED
[2022-02-14] MEDS ORDERED: BISA-78 PO (00:57)
[2022-02-14] MEDS ORDERED: POLY119P2 PO (00:57)
[2022-02-14] MEDS ORDERED: ONDA8TAB13 PO (00:57)
[2022-02-14 01:28] VITALS: BP 105/54
== END 2022-02-14 01:30 | disposition home or self-care (01) ==
LOC: ER 21:46
DX: K59.00 Constipation, unspecified (principal); R11.10 Vomiting, unspecified; R10.84 Generalized abdominal pain; R42 Dizziness and giddiness; I48.91 Unspecified atrial fibrillation; I25.10 Atherosclerotic heart disease of native coronary artery without angina pectoris; I11.0 Hypertensive heart disease with heart failure; I50.9 Heart failure, unspecified; J44.9 Chronic obstructive pulmonary disease, unspecified; K21.9 Gastro-esophageal reflux disease without esophagitis; G89.29 Other chronic pain; Z86.14 Personal history of Methicillin resistant Staphylococcus aureus infection; Z85.3 Personal history of malignant neoplasm of breast; Z90.49 Acquired absence of other specified parts of digestive tract; Z95.0 Presence of cardiac pacemaker; Z98.890 Other specified postprocedural states; Z79.899 Other long term (current) drug therapy
CPT/HCPCS: 36415; 74176; 80053; 80320; 81003; 83690; 83735; 83880; 84484; 85025; 87502; 87503; 93005; 96361; 96374; 96375; 99285; J1885; J2270; J2405; J7030

== ENCOUNTER 2022-02-25 06:22 | Emergency (ER) | payer MEDICARE, BC ==
[~2022-02-25] VITALS: Ht 160 cm; Wt 63.0 kg
[~2022-02-25 06:22] MED LIST changes: +BISA-78 PO; +ONDA8TAB13 PO; +POLY119P2 PO
[2022-02-25] MEDS ORDERED: benzonatate 100mg capsule PO ONE (09:10)
[2022-02-25] MEDS ORDERED: pseudoephedrine 30mg tablet PO ONE (09:10)
[2022-02-25] MEDS ORDERED: clindamycin 150mg capsule PO ONE (09:10)
[2022-02-25] MEDS ORDERED: BENZ-38 PO (09:19)
[2022-02-25] MEDS ORDERED: CLIN300C54 PO (09:19)
[2022-02-25 09:26] VITALS: BP 118/63
== END 2022-02-25 09:30 | disposition home or self-care (01) ==
LOC: ER 06:23
DX: J06.9 Acute upper respiratory infection, unspecified (principal); K08.89 Other specified disorders of teeth and supporting structures; I11.0 Hypertensive heart disease with heart failure; E78.00 Pure hypercholesterolemia, unspecified; J44.9 Chronic obstructive pulmonary disease, unspecified; G89.29 Other chronic pain; M54.9 Dorsalgia, unspecified; Z87.81 Personal history of (healed) traumatic fracture; Z86.14 Personal history of Methicillin resistant Staphylococcus aureus infection; Z76.0 Encounter for issue of repeat prescription; D09.9 Carcinoma in situ, unspecified; Z85.89 Personal history of malignant neoplasm of other organs and systems; Z79.899 Other long term (current) drug therapy; Z88.6 Allergy status to analgesic agent; Z88.5 Allergy status to narcotic agent; Z88.2 Allergy status to sulfonamides
CPT/HCPCS: 99284

== ENCOUNTER 2022-02-27 08:16 | Emergency (ER) | payer MEDICARE, BC ==
[~2022-02-27] VITALS: Ht 160 cm; Wt 63.6 kg
[~2022-02-27 08:16] MED LIST changes: +BENZ-38 PO; +CLIN300C54 PO
[2022-02-27 08:24] VITALS: BP 123/69
[2022-02-27] MEDS ORDERED: predniSONE 20 mg tablet PO ONE (10:15)
[2022-02-27] MEDS ORDERED: ipratropium/albuterol 3ml nebule NEB ONE (10:15)
--- NOTE | 2022-02-27 10:24 | NUR ---
RT AT BS
[2022-02-27 11:12] LABS: BASOPHILS # (AUTO) 0.1 X10'3 (0-0.2); BASOPHILS % (AUTO) 0.5 % (0-1); EOSINOPHILS # (AUTO) 0.7 X10'3 (0-0.9); EOSINOPHILS % (AUTO) 5.8 % (0-6); HEMATOCRIT 43.7 % (35.0-45.0); HEMOGLOBIN 14.2 g/dl (12.0-16.0); LYMPHOCYTES # (AUTO) 3.4 X10'3 (1.1-4.8); LYMPHOCYTES % (AUTO) 26.9 % (21-51); MEAN CORPUSCULAR HEMOGLOBIN 30.5 PG (27.0-31.0); MEAN CORPUSCULAR HGB CONC 32.5 g/dL (33.0-36.5); MEAN CORPUSCULAR VOLUME 93.9 FL (78-98); MONOCYTES % (AUTO) 8.1 % (2-12); NEUTROPHILS # (AUTO) 7.4 X10'3 (1.8-7.7); NEUTROPHILS % (AUTO) 58.7 % (42-75); PLATELET COUNT 234 X10'3 (140-440); RED BLOOD COUNT 4.65 X10'6 (4.20-5.60); RED CELL DISTRIBUTION WIDTH 12.9 % (11.5-14.5); WHITE BLOOD COUNT 12.6 X10'3 (4.5-11.0)
[2022-02-27 11:26] LABS: ALANINE AMINOTRANSFERASE 16 U/L (12-78); ALBUMIN 3.8 G/DL (3.4-5.0); ALBUMIN/GLOBULIN RATIO 1.2 (1.1-1.5); ALKALINE PHOSPHATASE 73 IU/L (46-116); ANION GAP 15 (8-16); ASPARTATE AMINO TRANSFERASE 25 U/L (10-37); BILIRUBIN,TOTAL 0.5 MG/DL (0.1-1.0); BLOOD UREA NITROGEN 17 MG/DL (7-18); CALCIUM 9.5 MG/DL (8.5-10.1); CHLORIDE 99 MMOL/L (99-107); CREATININE 0.81 MG/DL (0.40-0.90); GLUCOSE 98 MG/DL (70-104); POTASSIUM 3.8 MMOL/L (3.5-5.1); SODIUM 135 MMOL/L (135-145); TOTAL CARBON DIOXIDE 20.6 MMOL/L (24-32); TOTAL PROTEIN 7.1 G/DL (6.4-8.2); eGFR 70 ML/MIN
[2022-02-27] MEDS ORDERED: acetaminophen 325mg tablet PO ONE (11:30)
[2022-02-27] MEDS ORDERED: PRED20TA PO (11:45)
[2022-02-27] MEDS ORDERED: GUAI-647 PO (11:45)
[2022-02-27] MEDS ORDERED: DOXY100C77 PO (11:45)
== END 2022-02-27 12:08 | disposition home or self-care (01) ==
LOC: ER 08:16
DX: J01.10 Acute frontal sinusitis, unspecified (principal); J45.901 Unspecified asthma with (acute) exacerbation; I11.0 Hypertensive heart disease with heart failure; E78.00 Pure hypercholesterolemia, unspecified; I10 Essential (primary) hypertension; K21.9 Gastro-esophageal reflux disease without esophagitis; G89.29 Other chronic pain; Z86.14 Personal history of Methicillin resistant Staphylococcus aureus infection; G43.909 Migraine, unspecified, not intractable, without status migrainosus; Z79.899 Other long term (current) drug therapy; Z79.1 Long term (current) use of non-steroidal anti-inflammatories (NSAID); Z79.2 Long term (current) use of antibiotics
CPT/HCPCS: 36415; 71046; 80053; 85025; 94640; 99284; J7512

== ENCOUNTER 2022-03-18 06:23 | Emergency (ER) | payer MEDICARE, BC ==
[~2022-03-18] VITALS: Ht 160 cm; Wt 60.0 kg
[~2022-03-18 06:23] MED LIST changes: -CLIN300C54 PO
--- NOTE | 2022-03-18 06:47 | NUR ---
first contact. pt is ao4 claims headache top of head radiates to face and neck. photophobic. balance issues. claims dizziness. no visual or auditory issues. skin w/d/i pink.
[2022-03-18] MEDS ORDERED: ketorolac trometh. 30mg/ml inj. IV ONE (07:10)
[2022-03-18] MEDS ORDERED: normal saline 1000ml 1,000 ML IV ONE (07:10)
[2022-03-18] MEDS ORDERED: acetaminophen 325mg tablet PO ONE (07:10)
[2022-03-18] MEDS ORDERED: proCHLORperazine 10 MG/2 ml inj IV ONE (07:10)
[2022-03-18] MEDS ORDERED: aspirin 325mg tablet PO ONE (07:15)
[2022-03-18] MEDS ORDERED: SUMA50TA PO (09:08)
[2022-03-18] MEDS ORDERED: PROC-8 PO (09:08)
[2022-03-18] MEDS ORDERED: ACET-812 PO (09:08)
[2022-03-18] MEDS ORDERED: ASPI-1264 PO (09:08)
[2022-03-18 09:25] VITALS: BP 113/63
== END 2022-03-18 09:29 | disposition home or self-care (01) ==
LOC: ER 06:24
DX: R51.9 Headache, unspecified (principal); M54.89 Other dorsalgia; I48.91 Unspecified atrial fibrillation; I25.10 Atherosclerotic heart disease of native coronary artery without angina pectoris; I11.0 Hypertensive heart disease with heart failure; I50.9 Heart failure, unspecified; J44.9 Chronic obstructive pulmonary disease, unspecified; K21.9 Gastro-esophageal reflux disease without esophagitis; G89.29 Other chronic pain; Z86.14 Personal history of Methicillin resistant Staphylococcus aureus infection; Z85.3 Personal history of malignant neoplasm of breast; Z90.49 Acquired absence of other specified parts of digestive tract; Z95.0 Presence of cardiac pacemaker
CPT/HCPCS: 96361; 96374; 96375; 99284; J0780; J1885; J7030

== ENCOUNTER 2022-05-04 05:39 | Emergency (ER) | payer MEDICARE, BC ==
[~2022-05-04] VITALS: Ht 160 cm; Wt 59.1 kg
[~2022-05-04 05:39] MED LIST changes: +ACET-812 PO; -BENZ-38 PO; +PROC-8 PO
[2022-05-04] MEDS ORDERED: HYDROcodone/acetaminophen 10/325mg tab PO ONE (06:40)
[2022-05-04 07:24] VITALS: BP 110/69
== END 2022-05-04 07:24 | disposition home or self-care (01) ==
LOC: ER 05:39
DX: S60.032A Contusion of left middle finger without damage to nail, initial encounter (principal); R51.9 Headache, unspecified; I11.0 Hypertensive heart disease with heart failure; I50.9 Heart failure, unspecified; J45.909 Unspecified asthma, uncomplicated; G89.29 Other chronic pain; Z86.14 Personal history of Methicillin resistant Staphylococcus aureus infection; Z87.81 Personal history of (healed) traumatic fracture; W06.XXXA Fall from bed, initial encounter; Y93.89 Activity, other specified; Y92.89 Other specified places as the place of occurrence of the external cause; Y99.8 Other external cause status; Z79.899 Other long term (current) drug therapy
CPT/HCPCS: 29125; 70450; 73140; 99284

== ENCOUNTER 2022-05-21 18:01 | Emergency (ER) | payer MEDICARE, BC ==
[~2022-05-21] VITALS: Ht 160 cm; Wt 60.5 kg
[2022-05-21 18:23] LABS: BASOPHILS # (AUTO) 0.1 X10'3 (0-0.2); BASOPHILS % (AUTO) 0.5 % (0-1); EOSINOPHILS # (AUTO) 0.1 X10'3 (0-0.9); EOSINOPHILS % (AUTO) 1.1 % (0-6); HEMATOCRIT 42.7 % (35.0-45.0); HEMOGLOBIN 14.1 g/dl (12.0-16.0); LYMPHOCYTES # (AUTO) 4.9 X10'3 (1.1-4.8); LYMPHOCYTES % (AUTO) 43.7 % (21-51); MEAN CORPUSCULAR HEMOGLOBIN 31.3 PG (27.0-31.0); MEAN CORPUSCULAR HGB CONC 33.1 g/dL (33.0-36.5); MEAN CORPUSCULAR VOLUME 94.5 FL (78-98); MEAN PLATELET VOLUME 7.4 FL (7.4-10.4); MONOCYTES % (AUTO) 8.8 % (2-12); NEUTROPHILS # (AUTO) 5.2 X10'3 (1.8-7.7); NEUTROPHILS % (AUTO) 45.9 % (42-75); PLATELET COUNT 207 X10'3 (140-440); RED BLOOD COUNT 4.52 X10'6 (4.20-5.60); RED CELL DISTRIBUTION WIDTH 14.2 % (11.5-14.5); WHITE BLOOD COUNT 11.3 X10'3 (4.5-11.0)
[2022-05-21 18:33] LABS: ALANINE AMINOTRANSFERASE 43 U/L (12-78); ALBUMIN 4.5 G/DL (3.4-5.0); ALBUMIN/GLOBULIN RATIO 1.4 (1.1-1.5); ALKALINE PHOSPHATASE 78 IU/L (46-116); ANION GAP 10 (8-16); ASPARTATE AMINO TRANSFERASE 36 U/L (10-37); BILIRUBIN,TOTAL 0.4 MG/DL (0.1-1.0); BLOOD UREA NITROGEN 13 MG/DL (7-18); BUN/CREATININE RATIO 14.6 (10.0-20.0); CALCIUM 10.4 MG/DL (8.5-10.1); CHLORIDE 101 MMOL/L (99-107); CREATININE 0.89 MG/DL (0.40-0.90); GLUCOSE 106 MG/DL (70-104); POTASSIUM 3.3 MMOL/L (3.5-5.1); SODIUM 138 MMOL/L (135-145); TOTAL CARBON DIOXIDE 27.2 MMOL/L (24-32); TOTAL PROTEIN 7.7 G/DL (6.4-8.2); eGFR 63 ML/MIN
[2022-05-21 18:39] LABS: MAGNESIUM 1.9 MG/DL (1.5-2.4)
[2022-05-21] MEDS ORDERED: LORazepam 1 MG tablet PO ONE (20:05)
[2022-05-21] MEDS ORDERED: ipratropium/albuterol 3ml nebule NEB ONE (20:05)
[2022-05-21] MEDS ORDERED: POTASSIUM BICARB 20meq eff tab 20 MEQ TABLET.EFF PO ONE (20:35)
[2022-05-21 21:00] VITALS: BP 113/67
[2022-05-21] MEDS ORDERED: amox tr/potassium clavulanate 875/125mg TAB PO ONE (21:05)
[2022-05-21] MEDS ORDERED: AMOX-117 PO (21:06)
== END 2022-05-21 21:30 | disposition home or self-care (01) ==
LOC: ER 18:02
DX: R00.2 Palpitations (principal); E87.6 Hypokalemia; F41.9 Anxiety disorder, unspecified; J18.9 Pneumonia, unspecified organism; I11.9 Hypertensive heart disease without heart failure; I50.9 Heart failure, unspecified; I10 Essential (primary) hypertension; J45.909 Unspecified asthma, uncomplicated; F31.9 Bipolar disorder, unspecified; Z86.14 Personal history of Methicillin resistant Staphylococcus aureus infection
CPT/HCPCS: 36415; 71045; 80053; 83735; 83880; 84484; 85025; 93005; 94640; 94760; 99285

== ENCOUNTER 2022-06-01 14:10 | Emergency (ER) | payer MEDICARE, BC ==
[~2022-06-01] VITALS: Ht 160 cm; Wt 59.4 kg
[~2022-06-01 14:10] MED LIST changes: +POTA-366 PO; -POTA-82 PO
[2022-06-01 14:33] LABS: BASOPHILS % (AUTO) 0.3 % (0-1); EOSINOPHILS % (AUTO) 0.3 % (0-6); HEMATOCRIT 40.4 % (35.0-45.0); HEMOGLOBIN 13.4 g/dl (12.0-16.0); LYMPHOCYTES # (AUTO) 1.6 X10'3 (1.1-4.8); LYMPHOCYTES % (AUTO) 14.4 % (21-51); MEAN CORPUSCULAR HEMOGLOBIN 31.4 PG (27.0-31.0); MEAN CORPUSCULAR HGB CONC 33.2 g/dL (33.0-36.5); MEAN CORPUSCULAR VOLUME 94.5 FL (78-98); MEAN PLATELET VOLUME 7.8 FL (7.4-10.4); MONOCYTES # (AUTO) 1.6 X10'3 (0-0.9); MONOCYTES % (AUTO) 13.8 % (2-12); NEUTROPHILS % (AUTO) 71.2 % (42-75); PLATELET COUNT 168 X10'3 (140-440); RED BLOOD COUNT 4.28 X10'6 (4.20-5.60); RED CELL DISTRIBUTION WIDTH 13.7 % (11.5-14.5); WHITE BLOOD COUNT 11.3 X10'3 (4.5-11.0)
[2022-06-01 14:45] LABS: ALANINE AMINOTRANSFERASE 39 U/L (12-78); ALBUMIN 4.2 G/DL (3.4-5.0); ALBUMIN/GLOBULIN RATIO 1.4 (1.1-1.5); ALKALINE PHOSPHATASE 71 IU/L (46-116); ANION GAP 12 (8-16); ASPARTATE AMINO TRANSFERASE 31 U/L (10-37); BILIRUBIN,TOTAL 0.4 MG/DL (0.1-1.0); BLOOD UREA NITROGEN 23 MG/DL (7-18); BUN/CREATININE RATIO 24.2 (10.0-20.0); CALCIUM 10.2 MG/DL (8.5-10.1); CHLORIDE 99 MMOL/L (99-107); CREATININE 0.95 MG/DL (0.40-0.90); GLUCOSE 113 MG/DL (70-104); POTASSIUM 3.9 MMOL/L (3.5-5.1); SODIUM 135 MMOL/L (135-145); TOTAL CARBON DIOXIDE 23.8 MMOL/L (24-32); TOTAL PROTEIN 7.3 G/DL (6.4-8.2); eGFR 58 ML/MIN
[2022-06-01 14:55] LABS: MAGNESIUM 1.7 MG/DL (1.5-2.4)
[2022-06-01] MEDS ORDERED: ondansetron/PF 4mg/2ml inj IV ONE (17:05)
[2022-06-01] MEDS ORDERED: methylPREDNISolone sod succ 125mg/2ml vial IV ONE (17:05)
[2022-06-01] MEDS ORDERED: ipratropium/albuterol 3ml nebule NEB ONE (17:05)
[2022-06-01] MEDS ORDERED: morphine 4 MG/ML inj SYRINge IV ONE (17:05)
[2022-06-01] MEDS ORDERED: iohexol 350MG/ML 100ml bottle IV ONE (17:27)
--- NOTE | 2022-06-01 17:57 | NUR ---
PATIENT BACK FROM CT VIA [facility] AT THIS TIME.
[2022-06-01] MEDS ORDERED: LORazepam 2 mg/ml vial IV ONE (19:45)
[2022-06-01 21:44] VITALS: BP 112/68
== END 2022-06-01 21:46 | disposition home or self-care (01) ==
LOC: ER 14:11
DX: F41.9 Anxiety disorder, unspecified (principal); R07.9 Chest pain, unspecified; R51.9 Headache, unspecified; R11.10 Vomiting, unspecified; I11.9 Hypertensive heart disease without heart failure; I50.9 Heart failure, unspecified; E78.00 Pure hypercholesterolemia, unspecified; K21.9 Gastro-esophageal reflux disease without esophagitis; Z79.899 Other long term (current) drug therapy; Z79.1 Long term (current) use of non-steroidal anti-inflammatories (NSAID); Z79.2 Long term (current) use of antibiotics
CPT/HCPCS: 36415; 71045; 71275; 80053; 83735; 83880; 84484; 85025; 93005; 94640; 96374; 96375; 99285; J2060; J2270; J2405; J2930; J3490; Q9967

== ENCOUNTER 2022-06-05 17:39 | Emergency (ER) | payer MEDICARE, BC ==
[~2022-06-05] VITALS: Ht 167.6 cm; Wt 65.9 kg
[~2022-06-05 17:39] MED LIST changes: -POTA-366 PO; +POTA-82 PO
[2022-06-05] MEDS ORDERED: LORazepam 2 mg/ml vial IV ONE (17:50)
[2022-06-05] MEDS ORDERED: metoclopramide 5 mg/ml inj IV ONE (18:05)
[2022-06-05 18:16] LABS: BASOPHILS % (AUTO) 0.3 % (0-1); EOSINOPHILS % (AUTO) 0.4 % (0-6); HEMOGLOBIN 14.1 g/dl (12.0-16.0); LYMPHOCYTES # (AUTO) 1.8 X10'3 (1.1-4.8); LYMPHOCYTES % (AUTO) 26.8 % (21-51); MEAN CORPUSCULAR HEMOGLOBIN 31.1 PG (27.0-31.0); MEAN CORPUSCULAR HGB CONC 32.7 g/dL (33.0-36.5); MEAN PLATELET VOLUME 8.4 FL (7.4-10.4); MONOCYTES # (AUTO) 0.8 X10'3 (0-0.9); MONOCYTES % (AUTO) 11.7 % (2-12); NEUTROPHILS % (AUTO) 60.8 % (42-75); PLATELET COUNT 137 X10'3 (140-440); RED BLOOD COUNT 4.53 X10'6 (4.20-5.60); RED CELL DISTRIBUTION WIDTH 14.2 % (11.5-14.5); WHITE BLOOD COUNT 6.6 X10'3 (4.5-11.0)
[2022-06-05 18:20] LABS: ALANINE AMINOTRANSFERASE 180 U/L (12-78); ALBUMIN/GLOBULIN RATIO 1.3 (1.1-1.5); ALKALINE PHOSPHATASE 82 IU/L (46-116); ANION GAP 15 (8-16); ASPARTATE AMINO TRANSFERASE 69 U/L (10-37); BILIRUBIN,TOTAL 0.4 MG/DL (0.1-1.0); BLOOD UREA NITROGEN 20 MG/DL (7-18); CALCIUM 9.4 MG/DL (8.5-10.1); CHLORIDE 103 MMOL/L (99-107); CREATININE 0.77 MG/DL (0.40-0.90); GLUCOSE 119 MG/DL (70-104); SODIUM 141 MMOL/L (135-145); TOTAL CARBON DIOXIDE 22.9 MMOL/L (24-32); TOTAL PROTEIN 7.2 G/DL (6.4-8.2); eGFR 74 ML/MIN
[2022-06-05] MEDS ORDERED: normal saline 1000ML IV soln IVB ONE (18:40)
[2022-06-05] MEDS ORDERED: ipratropium/albuterol 3ml nebule NEB ONE (18:50)
[2022-06-05] MEDS ORDERED: HYDROcodone/acetaminophen 5mg/325mg tablet PO ONE (19:25)
[2022-06-05] MEDS ORDERED: ONDA8TAB13 PO (20:48)
[2022-06-05] MEDS ORDERED: CICL6.1H4 INH (20:48)
[2022-06-05] MEDS ORDERED: BUPR150T8 PO (20:48)
[2022-06-05 21:15] VITALS: BP 119/54
== END 2022-06-05 21:18 | disposition home or self-care (01) ==
LOC: ER 17:40
DX: J44.9 Chronic obstructive pulmonary disease, unspecified (principal); F41.9 Anxiety disorder, unspecified; G43.909 Migraine, unspecified, not intractable, without status migrainosus; I11.9 Hypertensive heart disease without heart failure; I50.9 Heart failure, unspecified; E78.00 Pure hypercholesterolemia, unspecified; K21.9 Gastro-esophageal reflux disease without esophagitis; Z86.14 Personal history of Methicillin resistant Staphylococcus aureus infection; Z79.899 Other long term (current) drug therapy; Z79.1 Long term (current) use of non-steroidal anti-inflammatories (NSAID); Z79.2 Long term (current) use of antibiotics
CPT/HCPCS: 36415; 71045; 80053; 83880; 84484; 85025; 93005; 96361; 96374; 96375; 99285; J2060; J2765; J7030

== ENCOUNTER 2023-02-07 06:00 | Day surgery (SDC) | payer MEDICARE, BC ==
[2023-02-06 10:09] LABS: BASOPHILS % (AUTO) 0.3 % (0-1); EOSINOPHILS # (AUTO) 0.2 X10'3 (0-0.9); EOSINOPHILS % (AUTO) 2.5 % (0-6); HEMOGLOBIN 12.6 g/dl (12.0-16.0); LYMPHOCYTES # (AUTO) 2.6 X10'3 (1.1-4.8); LYMPHOCYTES % (AUTO) 26.9 % (21-51); MEAN CORPUSCULAR HEMOGLOBIN 31.8 PG (27.0-31.0); MEAN CORPUSCULAR HGB CONC 33.2 g/dL (33.0-36.5); MEAN CORPUSCULAR VOLUME 95.6 FL (78-98); MEAN PLATELET VOLUME 7.3 FL (7.4-10.4); MONOCYTES # (AUTO) 0.9 X10'3 (0-0.9); MONOCYTES % (AUTO) 9.1 % (2-12); NEUTROPHILS # (AUTO) 5.9 X10'3 (1.8-7.7); NEUTROPHILS % (AUTO) 61.2 % (42-75); PLATELET COUNT 169 X10'3 (140-440); RED BLOOD COUNT 3.98 X10'6 (4.20-5.60); RED CELL DISTRIBUTION WIDTH 13.9 % (11.5-14.5); WHITE BLOOD COUNT 9.7 X10'3 (4.5-11.0)
[2023-02-06 10:19] LABS: ALBUMIN 3.8 G/DL (3.4-5.0); ANION GAP 8 (8-16); BLOOD UREA NITROGEN 10 MG/DL (7-18); BUN/CREATININE RATIO 13.5 (10.0-20.0); CALCIUM 9.3 MG/DL (8.5-10.1); CHLORIDE 102 MMOL/L (99-107); CREATININE 0.74 MG/DL (0.40-0.90); GLUCOSE 105 MG/DL (70-104); POTASSIUM 3.9 MMOL/L (3.5-5.1); SODIUM 135 MMOL/L (135-145); TOTAL CARBON DIOXIDE 24.8 MMOL/L (24-32); eGFR 78 ML/MIN
[2023-02-06 10:23] LABS: APTT 25 SECONDS (22-32); PROTHROMBIN TIME 10.4 SECONDS (9.0-12.0)
[~2023-02-07] VITALS: Ht 157.5 cm; Wt 61.7 kg
[2023-02-07] VITALS (11 sets, daily range): BP systolic 104–131; BP diastolic 48–71; PULSE 75–81; RESP 14–16; TEMP 97.9; O2SAT 96–99
[~2023-02-07 06:00] MED LIST changes: +CICL6.1H4 INH; +POTA-366 PO; -POTA-82 PO
[2023-02-07] MEDS ORDERED: cefazolin 2gm/D5W 100mL 100 ML IV ONE (06:25)
[2023-02-07] MEDS ORDERED: normal saline 1000ml 1,000 ML IV SCH (06:25)
[2023-02-07] MEDS ORDERED: AMIO100T4 PO (06:43)
[2023-02-07] MEDS ORDERED: FLUO20CA39 PO (06:47)
[2023-02-07] MEDS ORDERED: GABA300C PO (06:50)
[2023-02-07] MEDS ORDERED: HYDR-3972 PO (06:51)
[2023-02-07] MEDS ORDERED: NITR0.4T51 SL (06:54)
[2023-02-07] MEDS ORDERED: ONDA-104 PO (06:55)
[2023-02-07] MEDS ORDERED: SPIR25TA5 PO (06:56)
[2023-02-07] MEDS ORDERED: LOSA25TA41 PO (06:58)
[2023-02-07] MEDS ORDERED: DIGO-31 PO (06:58)
[2023-02-07] MEDS ORDERED: fentaNYL/PF 50MCG/1 ML 2ML syringe ONE (07:28)
[2023-02-07] MEDS ORDERED: midazolam 1 mg/ML 2ml injection ONE (07:28)
[2023-02-07] MEDS ORDERED: LIDOcaine 1% w/EPI 1:100,000 inj. MDV 50 ML VIAL ONE (07:28)
[2023-02-07] MEDS ORDERED: vancomycin 1,000mg inj ONE (07:29)
[2023-02-07] MEDS ORDERED: proCHLORperazine 10 MG/2 ml inj ONE (08:33)
[2023-02-07] MEDS ORDERED: HYDROmorphone 1 mg/ml syringe ONE (08:47)
[2023-02-07] MEDS ORDERED: HYDROcodone/acetaminophen 10/325mg tab PO PRN (09:55)
[2023-02-07] MEDS ORDERED: HYDROcodone/acetaminophen 5mg/325mg tablet PO PRN (09:55)
[2023-02-07] MEDS ORDERED: vancomycin/NS 1 GM ADD-VANTAGE 250 ML IV ONE (11:00)
== END 2023-02-07 13:05 | disposition home or self-care (01) ==
LOC: SSTAY O 06:00
PROVIDERS: ATTEND Internal Medicine Cardiovascular Disease
DX: Z45.02 Encounter for adjustment and management of automatic implantable cardiac defibrillator (principal); I25.119 Atherosclerotic heart disease of native coronary artery with unspecified angina pectoris; I42.7 Cardiomyopathy due to drug and external agent; I11.0 Hypertensive heart disease with heart failure; I50.32 Chronic diastolic (congestive) heart failure; J44.9 Chronic obstructive pulmonary disease, unspecified; E78.5 Hyperlipidemia, unspecified; I47.20 Ventricular tachycardia, unspecified; I48.0 Paroxysmal atrial fibrillation; K21.9 Gastro-esophageal reflux disease without esophagitis; D64.9 Anemia, unspecified; Z85.3 Personal history of malignant neoplasm of breast; Z98.51 Tubal ligation status; Z90.49 Acquired absence of other specified parts of digestive tract; Z98.890 Other specified postprocedural states; Z90.710 Acquired absence of both cervix and uterus; Z88.0 Allergy status to penicillin; Z88.8 Allergy status to other drugs, medicaments and biological substances; Z79.899 Other long term (current) drug therapy; Z79.01 Long term (current) use of anticoagulants; Z80.1 Family history of malignant neoplasm of trachea, bronchus and lung; Z82.3 Family history of stroke
CPT/HCPCS: 33264; 36415; 80048; 85025; 85610; 85730; 93005; 99152; 99153; C1882; J0780; J1170; J2250; J3010; J3370; J3490; J7030; A6258; A6449

== ENCOUNTER 2023-05-14 08:08 | Inpatient (IN) | payer MEDICARE, BC ==
[2023-05-13 22:35] VITALS: BP 118/67; PULSE 85; TEMP 97.5; O2SAT 100
[2023-05-13 23:00] VITALS: RESP 18; O2SAT 94
[~2023-05-14] VITALS: Ht 157.5 cm; Wt 61.4 kg
[~2023-05-14 08:08] MED LIST changes: -ACET-2971 PO; -ACET-812 PO; +AMIO100T4 PO; -AMIO200T27 PO; -BIOT1CAP3 PO; -BISA-78 PO; -CHOL200012 PO; -CICL6.1H4 INH; +DIGO-31 PO; -ELDE1CAP PO; +FLUO20CA39 PO; -FLUO40CA PO; -FURO-150 PO; +GABA300C PO; +HYDR-3972 PO; -IPRA3AMP9 IH; -LAN0.125T PO; -LEVO-65 PO; +LOSA25TA41 PO; -MELA10TA2 PO; -MULT-1085 PO; +NITR0.4T51 SL; +ONDA-104 PO; -ONDA8TAB13 PO; -POLY119P2 PO; -POTA-366 PO; -PRED10TA PO; -PROC-8 PO; -SACU1TAB PO; +SPIR25TA5 PO; -TRAZ-256 PO
[2023-05-14 08:40] LABS: BASOPHILS # (AUTO) 0.1 X10'3 (0-0.2); BASOPHILS % (AUTO) 0.5 % (0-1); EOSINOPHILS # (AUTO) 0.1 X10'3 (0-0.9); EOSINOPHILS % (AUTO) 1.1 % (0-6); HEMOGLOBIN 12.9 g/dl (12.0-16.0); LYMPHOCYTES % (AUTO) 27.5 % (21-51); MEAN CORPUSCULAR HEMOGLOBIN 30.3 PG (27.0-31.0); MEAN CORPUSCULAR HGB CONC 33.2 g/dL (33.0-36.5); MEAN CORPUSCULAR VOLUME 91.4 FL (78-98); MEAN PLATELET VOLUME 7.9 FL (7.4-10.4); MONOCYTES # (AUTO) 0.8 X10'3 (0-0.9); MONOCYTES % (AUTO) 7.4 % (2-12); NEUTROPHILS # (AUTO) 6.9 X10'3 (1.8-7.7); NEUTROPHILS % (AUTO) 63.5 % (42-75); PLATELET COUNT 172 X10'3 (140-440); RED BLOOD COUNT 4.27 X10'6 (4.20-5.60); RED CELL DISTRIBUTION WIDTH 14.1 % (11.5-14.5); WHITE BLOOD COUNT 10.9 X10'3 (4.5-11.0)
[2023-05-14 09:33] LABS: ALBUMIN 3.4 G/DL (3.4-5.0); ANION GAP 17 (8-16); BLOOD UREA NITROGEN 13 MG/DL (7-18); BUN/CREATININE RATIO 17.3 (10.0-20.0); CALCIUM 8.7 MG/DL (8.5-10.1); CHLORIDE 104 MMOL/L (99-107); CREATININE 0.75 MG/DL (0.40-0.90); GLUCOSE 122 MG/DL (70-104); POTASSIUM 3.8 MMOL/L (3.5-5.1); PRO BRAIN NATRIURETIC PEPTIDE 1624 PG/ML (0-125); SODIUM 139 MMOL/L (135-145); TOTAL CARBON DIOXIDE 18.1 MMOL/L (24-32); eCRCL 55 ML/MIN; eGFR 76 ML/MIN
[2023-05-14] MEDS: ondansetron 4mg rapidly disintigrating tab PO ONE (11:56)
[2023-05-14] MEDS: meclizine 12.5mg tablet PO ONE (11:56)
[2023-05-14 12:53] LABS: ETHANOL < 10 MG/DL (<10)
[2023-05-14 13:56] LABS: ACETONE SMALL (NEGATIVE)
[2023-05-14] MEDS ORDERED: SUMAtriptan 25 MG tablet PO ONE (15:05)
[2023-05-14] MEDS ORDERED: magnesium 2GM in 50ml NS 50 ML IV PRN (15:10)
[2023-05-14] MEDS ORDERED: potassium Cl 20 mEq SR tablet PO PRN (15:10)
[2023-05-14] MEDS ORDERED: magnesium 4gm in 100ml NS 100 ML IV PRN (15:10)
[2023-05-14] MEDS ORDERED: magnesium Cl slow-release 64mg tablet PO PRN (15:10)
[2023-05-14] MEDS ORDERED: HYDROcodone/acetaminophen 5mg/325mg tablet PO PRN (15:10)
[2023-05-14] MEDS ORDERED: potassium Cl 40MEQ/1/2NS 520ml 520 ML IV PRN (15:10)
[2023-05-14] MEDS ORDERED: acetaminophen 325mg tablet PO PRN ×2 (15:10)
[2023-05-14] MEDS ORDERED: magnesium hydroxide 30ml (MOM) UD suspension PO PRN (15:10)
[2023-05-14] MEDS ORDERED: mag hydrox/Alum hydrox/simeth 30ml oral suspension PO PRN (15:10)
[2023-05-14 15:48] LABS: BILIRUBIN,URINE SMALL (Neg); CLARITY,URINE SLIGHTLY CLOUDY (Clear); COLOR,URINE YELLOW (Yellow); GLUCOSE, URINE NEGATIVE (Neg); KETONES,URINE >=80 mg/dl (Neg); LEUKOCYTE ESTERASE ,URINE NEGATIVE (Neg); NITRITES, URINE NEGATIVE (Neg); OCCULT BLOOD,URINE NEGATIVE (Neg); PROTEIN,URINE NEGATIVE (Neg); UROBILINOGEN,URINE 0.2 E.U/dL (0.2-1.0)
[2023-05-14] MEDS: SUMAtriptan 25 MG tablet PO ONE (15:50)
[2023-05-14 15:52] LABS: UA COLLECTION TYPE CLN CATCH MIDSTREAM
[2023-05-14 16:00] LABS: MUCUS STRANDS FEW /LPF (Neg); SQUAMOUS EPITHELIAL CELL,UR FEW /LPF (FEW)
[2023-05-14 16:01] LABS: BACTERIA,URINE FEW /HPF (Neg); RBC,URINE 0-2 /HPF (0-2); URINE AMPHETAMINE SCREEN NEGATIVE (Neg); URINE BARBITUATE SCREEN NEGATIVE (Neg); URINE BENZODIAZEPINES SCREEN POSITIVE (Neg); URINE CANNABINOID SCREEN NEGATIVE (Neg); URINE COCAINE SCREEN NEGATIVE (Neg); URINE METHADONE SCREEN NEGATIVE (Neg); URINE OPIATE SCREEN NEGATIVE (Neg); URINE PHENCYCLIDINE SCREEN NEGATIVE (Neg); WBC,URINE 0-4 /HPF (0-4)
[2023-05-14] MEDS ORDERED: ACET-3414 PO (16:02)
[2023-05-14] MEDS ORDERED: PRAZ2CAP2 PO (16:02)
[2023-05-14] MEDS ORDERED: TEMA7.5C2 PO (16:02)
[2023-05-14] MEDS ORDERED: ALBU10.7 INH (16:02)
[2023-05-14] MEDS ORDERED: FLUO40CA PO (16:02)
[2023-05-14] MEDS: amiodarone 200mg tablet PO SCH (16:15)
[2023-05-14] MEDS: diphenhydrAMINE 25 MG/10 ML UD oral solution PO ONE (16:15)
[2023-05-14] MEDS: magnesium 2GM in 50ml NS 50 ML IV ONE (17:45)
[2023-05-14] MEDS: normal saline 1000ml 1,000 ML IV SCH (17:45)
[2023-05-14] MEDS: enoxaparin 40mg/0.4ml syringe SQ SCH (20:37)
[2023-05-14] MEDS: HYDROcodone/acetaminophen 10/325mg tab PO PRN (20:37)
[2023-05-14] MEDS: carvedilol 6.25mg tablet PO SCH (20:38)
[2023-05-14] MEDS: apixaban 5mg tablet PO SCH (20:38)
[2023-05-14] MEDS ORDERED: iohexol 350MG/ML 100ml bottle IV ONE (20:41)
[2023-05-14] MEDS: K and/or MAG REPLACEMENT MC SCH (20:55)
[2023-05-15] VITALS (9 sets, daily range): BP systolic 98–118; BP diastolic 56–62; PULSE 74–79; RESP 13–18; TEMP 97–97.9; O2SAT 94–98
[2023-05-15] MEDS: temazepam 15mg capsule PO PRN (01:27)
[2023-05-15] MEDS: ondansetron/PF 4mg/2ml inj IV PRN (06:53)
[2023-05-15 07:23] LABS: BASOPHILS % (AUTO) 0.5 % (0-1); EOSINOPHILS # (AUTO) 0.2 X10'3 (0-0.9); HEMATOCRIT 36.8 % (35.0-45.0); HEMOGLOBIN 12.4 g/dl (12.0-16.0); LYMPHOCYTES # (AUTO) 3.1 X10'3 (1.1-4.8); MEAN CORPUSCULAR HEMOGLOBIN 30.4 PG (27.0-31.0); MEAN CORPUSCULAR HGB CONC 33.5 g/dL (33.0-36.5); MEAN CORPUSCULAR VOLUME 90.7 FL (78-98); MEAN PLATELET VOLUME 7.2 FL (7.4-10.4); MONOCYTES # (AUTO) 0.9 X10'3 (0-0.9); MONOCYTES % (AUTO) 10.1 % (2-12); NEUTROPHILS # (AUTO) 4.4 X10'3 (1.8-7.7); NEUTROPHILS % (AUTO) 51.4 % (42-75); PLATELET COUNT 198 X10'3 (140-440); RED BLOOD COUNT 4.06 X10'6 (4.20-5.60); RED CELL DISTRIBUTION WIDTH 13.9 % (11.5-14.5); WHITE BLOOD COUNT 8.5 X10'3 (4.5-11.0)
[2023-05-15 07:38] LABS: APTT 31 SECONDS (22-32); INR 1.1 INR; PROTHROMBIN TIME 11.9 SECONDS (9.0-12.0)
[2023-05-15 07:56] LABS: ALANINE AMINOTRANSFERASE 28 U/L (12-78); ALKALINE PHOSPHATASE 73 IU/L (46-116); ANION GAP 11 (8-16); ASPARTATE AMINO TRANSFERASE 32 U/L (10-37); BILIRUBIN,TOTAL 0.5 MG/DL (0.1-1.0); BLOOD UREA NITROGEN 11 MG/DL (7-18); BUN/CREATININE RATIO 14.9 (10.0-20.0); CALCIUM 8.3 MG/DL (8.5-10.1); CHLORIDE 110 MMOL/L (99-107); CREATININE 0.74 MG/DL (0.40-0.90); FREE T4 (FREE THYROXINE) 1.73 NG/DL (0.73-1.40); GLUCOSE 84 MG/DL (70-104); MAGNESIUM 1.9 MG/DL (1.5-2.4); PHOSPHORUS 4.4 MG/DL (2.3-4.5); POTASSIUM 3.4 MMOL/L (3.5-5.1); SODIUM 143 MMOL/L (135-145); THYROID STIMULATING HORMONE 3.22 ulU/ml (0.34-4.50); TOTAL CARBON DIOXIDE 21.8 MMOL/L (24-32); eCRCL 56 ML/MIN; eGFR 78 ML/MIN
[2023-05-15] MEDS: losartan 25mg tablet PO SCH (08:00)
[2023-05-15] MEDS: spironolactone 25 MG tablet PO SCH (08:30)
[2023-05-15] MEDS: atorvastatin 20mg tablet PO SCH (08:39)
[2023-05-15] MEDS: levoTHYROXINE 88mcg tablet PO SCH (08:42)
[2023-05-15] MEDS: amiodarone 100mg tablet PO SCH (08:42)
[2023-05-15] MEDS: digoxin 250mcg (0.25mg) tablet PO SCH (08:43)
[2023-05-15] MEDS ORDERED: meclizine 12.5mg tablet PO PRN (10:20)
[2023-05-15] MEDS ORDERED: ondansetron 4mg rapidly disintigrating tab PO PRN (10:35)
[2023-05-15] MEDS ORDERED: diphenhydrAMINE 25 MG/10 ML UD oral solution PO PRN (10:35)
[2023-05-15] MEDS: meclizine 12.5mg tablet PO SCH (10:49)
[2023-05-15] MEDS: potassium Cl 20 mEq SR tablet PO PRN (17:38)
[2023-05-15] MEDS: diphenhydrAMINE 25mg capsule PO PRN (22:01)
[2023-05-16 02:00] VITALS: BP 107/56; PULSE 73; RESP 18; TEMP 98.4; O2SAT 96
[2023-05-16 07:46] LABS: BASOPHILS % (AUTO) 0.4 % (0-1); EOSINOPHILS # (AUTO) 0.2 X10'3 (0-0.9); EOSINOPHILS % (AUTO) 2.8 % (0-6); HEMATOCRIT 31.3 % (35.0-45.0); HEMOGLOBIN 10.4 g/dl (12.0-16.0); LYMPHOCYTES # (AUTO) 2.5 X10'3 (1.1-4.8); LYMPHOCYTES % (AUTO) 40.3 % (21-51); MEAN CORPUSCULAR HEMOGLOBIN 30.6 PG (27.0-31.0); MEAN CORPUSCULAR HGB CONC 33.3 g/dL (33.0-36.5); MEAN PLATELET VOLUME 7.9 FL (7.4-10.4); MONOCYTES # (AUTO) 0.7 X10'3 (0-0.9); MONOCYTES % (AUTO) 11.6 % (2-12); NEUTROPHILS # (AUTO) 2.8 X10'3 (1.8-7.7); NEUTROPHILS % (AUTO) 44.9 % (42-75); PLATELET COUNT 156 X10'3 (140-440); WHITE BLOOD COUNT 6.3 X10'3 (4.5-11.0)
[2023-05-16 08:00] VITALS: RESP 14; O2SAT 99
[2023-05-16 08:04] LABS: APTT 28 SECONDS (22-32); INR 1.1 INR
[2023-05-16 08:06] LABS: ALANINE AMINOTRANSFERASE 22 U/L (12-78); ALBUMIN 2.7 G/DL (3.4-5.0); ALKALINE PHOSPHATASE 59 IU/L (46-116); ANION GAP 7 (8-16); ASPARTATE AMINO TRANSFERASE 21 U/L (10-37); BILIRUBIN,TOTAL 0.3 MG/DL (0.1-1.0); BLOOD UREA NITROGEN 9 MG/DL (7-18); BUN/CREATININE RATIO 14.8 (10.0-20.0); CALCIUM 8.4 MG/DL (8.5-10.1); CHLORIDE 109 MMOL/L (99-107); CHOL/HDL RATIO 2.6 (0.00-4.99); CHOLESTEROL 111 MG/DL (0-200); CREATININE 0.61 MG/DL (0.40-0.90); GLUCOSE 92 MG/DL (70-104); HDL CHOLESTEROL 43 MG/DL (35-60); LDL CHOLESTEROL 48 MG/DL (50-100); MAGNESIUM 1.6 MG/DL (1.5-2.4); PHOSPHORUS 4.2 MG/DL (2.3-4.5); POTASSIUM 4.8 MMOL/L (3.5-5.1); SODIUM 142 MMOL/L (135-145); TOTAL CARBON DIOXIDE 25.9 MMOL/L (24-32); TOTAL PROTEIN 5.3 G/DL (6.4-8.2); TRIGLYCERIDES 106 MG/DL (20-135); eCRCL 68 ML/MIN; eGFR > 90 ML/MIN
[2023-05-16 08:33] LABS: PROTHROMBIN TIME 11.5 SECONDS (9.0-12.0)
[2023-05-16 09:06] VITALS: BP_SYST 106; PULSE 75
[2023-05-16] MEDS ORDERED: MECL-226 PO (10:17)
[2023-05-16 10:29] VITALS: RESP 15
== END 2023-05-16 12:20 | disposition home or self-care (01) | DRG 103 ==
LOC: ER 08:09 → ED HOLD 15:13 → PCU 3S 22:35
PROVIDERS: ADMIT Internal Medicine; ATTEND Internal Medicine
PROC: B3251ZZ Computerized Tomography (CT Scan) of Bilateral Common Carotid Arteries using Low Osmolar Contrast (ICD-10-PCS; principal; 2023-05-14)
PROC: B32G1ZZ Computerized Tomography (CT Scan) of Bilateral Vertebral Arteries using Low Osmolar Contrast (ICD-10-PCS; 2023-05-14)
PROC: B32R1ZZ Computerized Tomography (CT Scan) of Intracranial Arteries using Low Osmolar Contrast (ICD-10-PCS; 2023-05-14)
PROC: B3281ZZ Computerized Tomography (CT Scan) of Bilateral Internal Carotid Arteries using Low Osmolar Contrast (ICD-10-PCS; 2023-05-14)
DX: G43.909 Migraine, unspecified, not intractable, without status migrainosus (principal); I50.22 Chronic systolic (congestive) heart failure; I11.0 Hypertensive heart disease with heart failure; I48.91 Unspecified atrial fibrillation; E78.00 Pure hypercholesterolemia, unspecified; I25.10 Atherosclerotic heart disease of native coronary artery without angina pectoris; R42 Dizziness and giddiness; K21.9 Gastro-esophageal reflux disease without esophagitis; J44.9 Chronic obstructive pulmonary disease, unspecified; E03.9 Hypothyroidism, unspecified; R11.2 Nausea with vomiting, unspecified; Z20.822 Contact with and (suspected) exposure to COVID-19; F41.9 Anxiety disorder, unspecified; G89.29 Other chronic pain; Z82.0 Family history of epilepsy and other diseases of the nervous system; Z82.49 Family history of ischemic heart disease and other diseases of the circulatory system; Z80.1 Family history of malignant neoplasm of trachea, bronchus and lung; Z82.3 Family history of stroke; Z85.3 Personal history of malignant neoplasm of breast; Z90.49 Acquired absence of other specified parts of digestive tract; Z95.0 Presence of cardiac pacemaker; Z79.899 Other long term (current) drug therapy; Z87.891 Personal history of nicotine dependence
CPT/HCPCS: 36415; 70450; 70496; 70498; 71045; 74176; 80048; 80053; 80061; 80305; 80320; 81001; 82009; 83605; 83735; 83880; 84100; 84439; 84443; 84484; 85025; 85610; 85651; 85730; 87040; 87081; 87811; 93005; 97161; 99285; G0378; J1650; J2405; J3475; J3490; J7030; J8597; Q0163; Q9967